=== PATIENT | female | born 1935 | race Caucasian/White ===

== ENCOUNTER 2016-10-08 08:35 | Emergency (ER) | payer MEDICARE ==
[~2016-10-08 08:35] MED LIST: /AMLO25TA PO; /CELE20CA PO; /CIPR75TA OR; ACET50TA PO; ALDA25TA2 PO; AMBI10TA PO; AMLO5TAB2 PO; ASPI81CH PO; ASPI81TA7 PO; CRES5TAB PO; DEXI60CA PO; DIPH50CA PO; DO NOT TAKE; FERR325T3 PO; GLIM1TAB PO; GLIM2TAB PO; GLIM4TAB PO; HYDR12.55 PO; HYDR25TA6 PO; IMOD2TAB14 PO; LASI80TA PO; LEVA500T PO; LEVO100T PO; LEVO112T25 PO; LISI10TA4 PO; LISI40TA PO; LOPE2CA PO; LOPR100T PO; MAGN1TAB25 PO; METO-209 PO; METO100T PO; METROPROLOL PO; MUCI600T34 PO; MULTCAP PO; OMEP20TA7 PO; OXYCO5TA PO; Plavix PO; SIME40TA PO; VITA500C24 PO; XANA0.25 PO; ZEST5TAB PO; ZINC220C PO
[2016-10-08] MEDS ORDERED: TETRACAINE 0.5% OPHTH SOLN 2 ML As Ordered ONE (09:12)
[2016-10-08] MEDS ORDERED: FLUORESCEIN OPHTH 1 MG STRIP As Ordered ONE (09:12)
[2016-10-08] MEDS ORDERED: NORCO, ANEXSIA 5/325MG TABLET (HYDROcodone/ACETAMINOPHEN) As Ordered ONE (09:12)
--- NOTE | 2016-10-08 09:54 | EDDOCDS ---
Physician Documentation [facility] Name: Valeria Weir Age: 81 yrs Sex: Female : 1935 Arrival Date: 10/08/2016 Time: 08:35 Bed I10 / 23 Private MD: Frank Lorenz A. Disposition: 10/08/16 09:37 Discharged to Home/Self Care. Impression: Zoster [herpes zoster]. - Condition is Stable. - Discharge Instructions: Shingles. - Prescriptions for Hydrocodone- Acetaminophen 5-325 mg Oral Tablet - take 1 tablet by ORAL route every 6 hours As needed MDD: 4 tabs; 20 tablet. Acyclovir 800 mg Oral Tablet - take 1 tablet by ORAL route 5 times per day for 10 days; 50 tablet. - Medication Reconciliation, Local Pharmacy Hours form. - Follow up: Emergency Department; When: As needed; Reason: Worsening of conditions. Follow up: Frank Lorenz; When: 2 - 3 days; Reason: Wound/Symptom Recheck, Recheck today's complaints, Worsening of conditions, Continuance of care. - Problem is new. - Symptoms have improved. Historical: - Allergies: Ciprofloxacin; cefadroxil; SUCCINYLCHOLINE; - Home Meds: 1. atorvastatin 10 mg oral tab 1 tab once daily 2. magnesium oxide 400 mg Oral tab daily 3. levothyroxine 112 mcg Oral tab 1 tab once daily 4. metoprolol succinate oral 5. metoprolol tartrate 50 mg Oral tab 1 tab 2 times per day 6. lisinopril 10 mg Oral tab 1 tab once daily 7. aspirin 325 mg Oral tab 1 tab once daily 8. escitalopram oxalate 5 mg oral tab 1 tab once daily 9. omeprazole 20 mg Oral cpDR 1 cap once daily 10. glimepiride 2 mg Oral tab 1 tab three times a day 11. sodium bicarbonate 325 mg Oral tab daily - PMHx: Hypertension; Diabetes - NIDDM: controlled; Hypothyroidism; High Cholesterol; Cancer, Breast - Left; GERD; - PSHx: Cholecystectomy; Hysterectomy; Nephrectomy- Right; Hernia repair; Cataract Surgery- Bilateral; CABG; - Social history: Smoking status: Patient states was never smoker of tobacco. No barriers to communication noted, The patient speaks fluent [place], Speaks appropriately for age. - Family history: Not pertinent. - : The pt / caregiver states he / she is not on anticoagulants. Home medication list is obtained from the patient. - Exposure Risk Screening:: None identified. Vital Signs: 10/08 08:48 BP 170 / 73; Pulse 70; Resp 16; Temp 97.9(TE); Pulse Ox 96% on R/A; Weight 88.9 kg / mlb1 195.99 lbs (R); Height 5 ft. 1 in. (154.94 cm) (R); Pain 07/17; 08:48 Body Mass Index 37.03 (88.90 kg, 154.94 cm) mlb1 MDM: 09:07 HYDROcodone-acetaminophen 5 mg-325 mg 1 tabs PO once ordered. cc10 09:07 Tetracaine (PF) Drops 0.5 % 2 drps Ophthalmic once ordered. cc10 09:07 Flouroscein strips to bedside ordered. cc10 09:07 Misc. Nursing Order ordered. cc10 Administered Medications: 09:16 Drug: HYDROcodone-acetaminophen 1 tabs [hydrocodone 5 mg-acetaminophen 325 mg tablet (1 jc4 tabs)] Route: PO; 09:16 Follow up: Response: Confirmed pt not driving. jc4 09:51 Follow up: Response: Pain is decreased jc4 09:16 Drug: Tetracaine (PF) 2 drps [tetracaine HCl (PF) 0.5 % eye drops (2 drps)] Route: jc4 Ophthalmic; Site: right eye; Signatures: Adin Kwok RN RN mlb1 Shahla Rausch RN RN jc4 Fidel Fortune PA-C PA-C cc10 MTDD
--- NOTE | 2016-10-08 09:54 | EDDOCDS ---
Nurse's Notes [facility] Name: Valeria Weir Age: 81 yrs Sex: Female : 1935 Arrival Date: 10/08/2016 Time: 08:35 Bed I10 / 23 Private MD: Frank Lorenz A. Diagnosis: Zoster [herpes zoster] Presentation: 10/08 08:40 Presenting complaint: Patient states: Painful rash to scalp and right side of face mlb1 began two days ago. Onset: The symptoms/episode began/occurred 2 day(s) ago. This patient has not experienced a previous allergic reaction. Anaphylaxis evaluation, the patient reports or I have noted the following symptoms which indicate a significant risk of anaphylaxis: no signs or symptoms of anaphylaxis were noted. Adult Sepsis Screening: The patient does not have new or worsening altered mentation. Patient's respiratory rate is less than 22. Systolic blood pressure is greater than 100. Patient has a qSOFA score of 0- Negative Sepsis Screen. Suicide/Homicide risk assessment- the patient denies having any suicidal and/or homicidal ideations and does not present with any other emotional, behavioral or mental health complaints. 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 Transition of care: patient was not received from another setting of care. 08:40 Acuity: TERRA Level 4 mlb1 08:40 Method Of Arrival: Walkin/Carried/Asstd mlb1 Triage Assessment: 08:48 General: Appears in no apparent distress, Behavior is appropriate for age, cooperative. mlb1 Pain: Location: head, right sternocleidomastoid and scalp Pain currently is 10 out of 10 on a pain scale. Respiratory: Reports no respiratory complaints. Historical: - Allergies: Ciprofloxacin; cefadroxil; SUCCINYLCHOLINE; - Home Meds: 1. atorvastatin 10 mg oral tab 1 tab once daily 2. magnesium oxide 400 mg Oral tab daily 3. levothyroxine 112 mcg Oral tab 1 tab once daily 4. metoprolol succinate oral 5. metoprolol tartrate 50 mg Oral tab 1 tab 2 times per day 6. lisinopril 10 mg Oral tab 1 tab once daily 7. aspirin 325 mg Oral tab 1 tab once daily 8. escitalopram oxalate 5 mg oral tab 1 tab once daily 9. omeprazole 20 mg Oral cpDR 1 cap once daily 10. glimepiride 2 mg Oral tab 1 tab three times a day 11. sodium bicarbonate 325 mg Oral tab daily - PMHx: Hypertension; Diabetes - NIDDM: controlled; Hypothyroidism; High Cholesterol; Cancer, Breast - Left; GERD; - PSHx: Cholecystectomy; Hysterectomy; Nephrectomy- Right; Hernia repair; Cataract Surgery- Bilateral; CABG; - Social history: Smoking status: Patient states was never smoker of tobacco. No barriers to communication noted, The patient speaks fluent Sinhala, Speaks appropriately for age. - Family history: Not pertinent. - : The pt / caregiver states he / she is not on anticoagulants. Home medication list is obtained from the patient. - Exposure Risk Screening:: None identified. Screenin:51 Screening information is obtained from the patient. Fall risk: No risks identified. jc4 Assistance ADL's: requires no assistance with activities of daily living. Abuse/DV Screen: The patient / caregiver reports he/she is: not in a situation that causes fear, pain or injury. Nutritional screening: No deficits noted. Advance Directives: Further advance directive information is declined. home support is adequate. Assessment: 09:49 General: Appears in no apparent distress, Behavior is cooperative, pleasant. jc4 Neurological: Level of Consciousness is awake, alert, Oriented to person, place, time. Respiratory: Airway is patent Respiratory effort is even, unlabored, Respiratory pattern is regular, symmetrical. Respiratory: Breath sounds are clear bilaterally. Derm: Skin is pink, warm & dry. Rash noted that is red noted to right side of neck and face. Vital Signs: 08:48 BP 170 / 73; Pulse 70; Resp 16; Temp 97.9(TE); Pulse Ox 96% on R/A; Weight 88.9 kg (R); mlb1 Height 5 ft. 1 in. (154.94 cm) (R); Pain 10/10; 08:48 Body Mass Index 37.03 (88.90 kg, 154.94 cm) b1 Vitals: 08:48 Log In Time: October 08, 2016 at 08:35. b1 ED Course: 08:37 Patient visited by Sukh Avila. mm15 08:37 Frank Lorenz is Private Physician. mm15 08:37 Patient moved to Waiting mm15 08:40 Patient visited by Adin Kwok RN. mlb1 08:41 Triage Initiated b1 08:50 Patient visited by Adin Kwok, PATRICK. mlb1 08:50 Shahla Rausch, PATRICK is Primary Nurse. mlb1 08:50 Patient moved to I3 / M3 mlb1 08:58 Fidel Fortune PA-C is [facility]. cc10 08:58 Grace Chaidez MD is Attending Physician. cc10 08:59 Patient visited by Fidel Fortune PA-C. cc10 08:59 Patient visited by Fidel Fortune PA-C. cc10 09:10 Patient moved to I10 / 23 hs1 09:37 Frank Lorenz is Referral Physician. cc10 09:51 No IV's were initiated during this patient's visit. No procedures done that require 4 assistance. 09:53 The patient / caregiver is instructed regarding the plan of care and ED course. jc4 Administered Medications: 09:16 Drug: HYDROcodone-acetaminophen 1 tabs [hydrocodone 5 mg-acetaminophen 325 mg tablet (1 jc4 tabs)] Route: PO; 09:16 Follow up: Response: Confirmed pt not driving. jc4 09:51 Follow up: Response: Pain is decreased jc4 09:16 Drug: Tetracaine (PF) 2 drps [tetracaine HCl (PF) 0.5 % eye drops (2 drps)] Route: jc4 Ophthalmic; Site: right eye; Order Results: There are currently no results for this order. Outcome: 09:37 Discharge ordered by Provider. cc10 09:52 Discharge Assessment: Patient awake, alert and oriented x 3. No cognitive and/or jc4 functional deficits noted. Patient verbalized understanding of disposition instructions. patient administered narcotics - yes. Pt provided with safe discharge. The following High Risk Discharge criteria are identified: None. Discharged to home ambulatory. Condition: stable. Discharge instructions given to patient, Instructed on discharge instructions, follow up and referral plans. medication usage, Demonstrated understanding of instructions, medications, Pt was receptive of discharge instructions/ teaching. No special radiology studies were completed. Property :Personal belongings accompany Pt. 09:53 Patient left the ED. jc4 Signatures: Adin Kwok, RN RN mlb1 Karen Haley RN RN hs1 Shahla Rausch, PATRICK NGUYEN jc4 Sukh Avila mm15 [place], Fidel, PA-C PA-C cc10 MTDD
--- NOTE | 2016-10-10 10:54 | EDDOCDS ---
Physician Documentation [facility] Name: Valeria Weir Age: 81 yrs Sex: Female : 1935 Arrival Date: 10/08/2016 Time: 08:35 Bed I10 / 23 Private MD: Frank Lorenz A. Disposition: 10/08/16 09:37 Discharged to Home/Self Care. Impression: Zoster [herpes zoster]. - Condition is Stable. - Discharge Instructions: Shingles. - Prescriptions for Hydrocodone- Acetaminophen 5-325 mg Oral Tablet - take 1 tablet by ORAL route every 6 hours As needed MDD: 4 tabs; 20 tablet. Acyclovir 800 mg Oral Tablet - take 1 tablet by ORAL route 5 times per day for 10 days; 50 tablet. - Medication Reconciliation, Local Pharmacy Hours form. - Follow up: Emergency Department; When: As needed; Reason: Worsening of conditions. Follow up: Frank Lorenz; When: 2 - 3 days; Reason: Wound/Symptom Recheck, Recheck today's complaints, Worsening of conditions, Continuance of care. - Problem is new. - Symptoms have improved. Historical: - Allergies: Ciprofloxacin; cefadroxil; SUCCINYLCHOLINE; - Home Meds: 1. atorvastatin 10 mg oral tab 1 tab once daily 2. magnesium oxide 400 mg Oral tab daily 3. levothyroxine 112 mcg Oral tab 1 tab once daily 4. metoprolol succinate oral 5. metoprolol tartrate 50 mg Oral tab 1 tab 2 times per day 6. lisinopril 10 mg Oral tab 1 tab once daily 7. aspirin 325 mg Oral tab 1 tab once daily 8. escitalopram oxalate 5 mg oral tab 1 tab once daily 9. omeprazole 20 mg Oral cpDR 1 cap once daily 10. glimepiride 2 mg Oral tab 1 tab three times a day 11. sodium bicarbonate 325 mg Oral tab daily - PMHx: Hypertension; Diabetes - NIDDM: controlled; Hypothyroidism; High Cholesterol; Cancer, Breast - Left; GERD; - PSHx: Cholecystectomy; Hysterectomy; Nephrectomy- Right; Hernia repair; Cataract Surgery- Bilateral; CABG; - Social history: Smoking status: Patient states was never smoker of tobacco. No barriers to communication noted, The patient speaks fluent Liberian, Speaks appropriately for age. - Family history: Not pertinent. - : The pt / caregiver states he / she is not on anticoagulants. Home medication list is obtained from the patient. - Exposure Risk Screening:: None identified. Vital Signs: 10/08 08:48 BP 170 / 73; Pulse 70; Resp 16; Temp 97.9(TE); Pulse Ox 96% on R/A; Weight 88.9 kg / mlb1 195.99 lbs (R); Height 5 ft. 1 in. (154.94 cm) (R); Pain 1010; 08:48 Body Mass Index 37.03 (88.90 kg, 154.94 cm) mlb1 MDM: 09:07 HYDROcodone-acetaminophen 5 mg-325 mg 1 tabs PO once ordered. cc10 09:07 Tetracaine (PF) Drops 0.5 % 2 drps Ophthalmic once ordered. cc10 09:07 Flouroscein strips to bedside ordered. cc10 09:07 Misc. Nursing Order ordered. cc10 09:56 [facility] Payment Agreement was scanned into [employer] and attached to record. 5 :56 Financial registration complete. jp5 11:31 T-Sheet-- Draft Copy was scanned into [employer] and attached to record. seh Administered Medications: 09:16 Drug: HYDROcodone-acetaminophen 1 tabs [hydrocodone 5 mg-acetaminophen 325 mg tablet (1 jc4 tabs)] Route: PO; 09:16 Follow up: Response: Confirmed pt not driving. jc4 09:51 Follow up: Response: Pain is decreased jc4 09:16 Drug: Tetracaine (PF) 2 drps [tetracaine HCl (PF) 0.5 % eye drops (2 drps)] Route: jc4 Ophthalmic; Site: right eye; Signatures: Adin Kwok RN RN mlb1 Shahla Rausch RN RN jc4 Fidel Fortune PA-C PA-C cc10 Savannah Booth 5 Grace Connell se The chart was reviewed and I authenticate all verbal orders and agree with the evaluation and treatment provided.Attachments: :56 [facility] Payment Agreement 5 11:31 T-Sheet-- Draft Copy [facility] Chart Complete MTDD
--- NOTE | 2016-10-10 10:54 | EDDOCDS ---
Nurse's Notes [facility] Name: Valeria Weir Age: 81 yrs Sex: Female : 1935 Arrival Date: 10/08/2016 Time: 08:35 Bed I10 / 23 Private MD: Frank Lorenz A. Diagnosis: Zoster [herpes zoster] Presentation: 10/08 08:40 Presenting complaint: Patient states: Painful rash to scalp and right side of face mlb1 began two days ago. Onset: The symptoms/episode began/occurred 2 day(s) ago. This patient has not experienced a previous allergic reaction. Anaphylaxis evaluation, the patient reports or I have noted the following symptoms which indicate a significant risk of anaphylaxis: no signs or symptoms of anaphylaxis were noted. Adult Sepsis Screening: The patient does not have new or worsening altered mentation. Patient's respiratory rate is less than 22. Systolic blood pressure is greater than 100. Patient has a qSOFA score of 0- Negative Sepsis Screen. Suicide/Homicide risk assessment- the patient denies having any suicidal and/or homicidal ideations and does not present with any other emotional, behavioral or mental health complaints. Status: Patient is not a food service attendant or dependent. Transition of care: patient was not received from another setting of care. 08:40 Acuity: TERRA Level 4 mlb1 08:40 Method Of Arrival: Walkin/Carried/Asstd mlb1 Triage Assessment: 08:48 General: Appears in no apparent distress, Behavior is appropriate for age, cooperative. mlb1 Pain: Location: head, right sternocleidomastoid and scalp Pain currently is 10 out of 10 on a pain scale. Respiratory: Reports no respiratory complaints. Historical: - Allergies: Ciprofloxacin; cefadroxil; SUCCINYLCHOLINE; - Home Meds: 1. atorvastatin 10 mg oral tab 1 tab once daily 2. magnesium oxide 400 mg Oral tab daily 3. levothyroxine 112 mcg Oral tab 1 tab once daily 4. metoprolol succinate oral 5. metoprolol tartrate 50 mg Oral tab 1 tab 2 times per day 6. lisinopril 10 mg Oral tab 1 tab once daily 7. aspirin 325 mg Oral tab 1 tab once daily 8. escitalopram oxalate 5 mg oral tab 1 tab once daily 9. omeprazole 20 mg Oral cpDR 1 cap once daily 10. glimepiride 2 mg Oral tab 1 tab three times a day 11. sodium bicarbonate 325 mg Oral tab daily - PMHx: Hypertension; Diabetes - NIDDM: controlled; Hypothyroidism; High Cholesterol; Cancer, Breast - Left; GERD; - PSHx: Cholecystectomy; Hysterectomy; Nephrectomy- Right; Hernia repair; Cataract Surgery- Bilateral; CABG; - Social history: Smoking status: Patient states was never smoker of tobacco. No barriers to communication noted, The patient speaks fluent Macedonian, Speaks appropriately for age. - Family history: Not pertinent. - : The pt / caregiver states he / she is not on anticoagulants. Home medication list is obtained from the patient. - Exposure Risk Screening:: None identified. Screenin:51 Screening information is obtained from the patient. Fall risk: No risks identified. jc4 Assistance ADL's: requires no assistance with activities of daily living. Abuse/DV Screen: The patient / caregiver reports he/she is: not in a situation that causes fear, pain or injury. Nutritional screening: No deficits noted. Advance Directives: Further advance directive information is declined. home support is adequate. Assessment: 09:49 General: Appears in no apparent distress, Behavior is cooperative, pleasant. jc4 Neurological: Level of Consciousness is awake, alert, Oriented to person, place, time. Respiratory: Airway is patent Respiratory effort is even, unlabored, Respiratory pattern is regular, symmetrical. Respiratory: Breath sounds are clear bilaterally. Derm: Skin is pink, warm & dry. Rash noted that is red noted to right side of neck and face. Vital Signs: 08:48 BP 170 / 73; Pulse 70; Resp 16; Temp 97.9(TE); Pulse Ox 96% on R/A; Weight 88.9 kg (R); mlb1 Height 5 ft. 1 in. (154.94 cm) (R); Pain 10/10; 08:48 Body Mass Index 37.03 (88.90 kg, 154.94 cm) b1 Vitals: 08:48 Log In Time: October 08, 2016 at 08:35. b1 ED Course: 08:37 Patient visited by Sukh Avila. mm15 08:37 Frank Lorenz is Private Physician. mm15 08:37 Patient moved to Waiting mm15 08:40 Patient visited by Adin Kwok RN. mlb1 08:41 Triage Initiated b1 08:50 Patient visited by Adin Kwok RN. mlb1 08:50 Shahla Rausch RN is Primary Nurse. mlb1 08:50 Patient moved to I3 / M3 mlb1 08:58 Fidel Fortune PA-C is PHCP. cc10 08:58 Grace Chaidez MD is Attending Physician. cc10 08:59 Patient visited by Fidel Fortune PA-C. cc10 08:59 Patient visited by Fidel Fortune PA-C. cc10 09:10 Patient moved to I10 / 23 hs1 09:37 Frank Lorenz is Referral Physician. cc10 09:51 No IV's were initiated during this patient's visit. No procedures done that require [facility] assistance. 09:53 The patient / caregiver is instructed regarding the plan of care and ED course. jc4 09:56 [facility] Payment Agreement was scanned into [employer] and attached to record. jp5 11:31 T-Sheet-- Draft Copy was scanned into [employer] and attached to record. seh Administered Medications: 09:16 Drug: HYDROcodone-acetaminophen 1 tabs [hydrocodone 5 mg-acetaminophen 325 mg tablet (1 jc4 tabs)] Route: PO; 09:16 Follow up: Response: Confirmed pt not driving. jc4 09:51 Follow up: Response: Pain is decreased jc4 09:16 Drug: Tetracaine (PF) 2 drps [tetracaine HCl (PF) 0.5 % eye drops (2 drps)] Route: jc4 Ophthalmic; Site: right eye; Order Results: There are currently no results for this order. Outcome: 09:37 Discharge ordered by Provider. cc10 09:52 Discharge Assessment: Patient awake, alert and oriented x 3. No cognitive and/or jc4 functional deficits noted. Patient verbalized understanding of disposition instructions. patient administered narcotics - yes. Pt provided with safe discharge. The following High Risk Discharge criteria are identified: None. Discharged to home ambulatory. Condition: stable. Discharge instructions given to patient, Instructed on discharge instructions, follow up and referral plans. medication usage, Demonstrated understanding of instructions, medications, Pt was receptive of discharge instructions/ teaching. No special radiology studies were completed. Property :Personal belongings accompany Pt. 09:53 Patient left the ED. jc4 Signatures: Adin Kwok RN RN mlb1 Karen Haley, RN RN hs1 Shahla Rausch, RN RN jc4 Sukh Avila mm15 Fidel Fortune PA-C PA-C cc10 Savannah Booth jp5 Grace Connell Chart Complete MTDD
--- NOTE | 2016-10-10 10:54 | EDDOCDS ---
Physician Documentation [facility] Name: Valeria Weir Age: 81 yrs Sex: Female : 1935 Arrival Date: 10/08/2016 Time: 08:35 Bed I10 / 23 Private MD: Frank Lorenz A. Disposition: 10/08/16 09:37 Discharged to Home/Self Care. Impression: Zoster [herpes zoster]. - Condition is Stable. - Discharge Instructions: Shingles. - Prescriptions for Hydrocodone- Acetaminophen 5-325 mg Oral Tablet - take 1 tablet by ORAL route every 6 hours As needed MDD: 4 tabs; 20 tablet. Acyclovir 800 mg Oral Tablet - take 1 tablet by ORAL route 5 times per day for 10 days; 50 tablet. - Medication Reconciliation, Local Pharmacy Hours form. - Follow up: Emergency Department; When: As needed; Reason: Worsening of conditions. Follow up: Frank Lorenz; When: 2 - 3 days; Reason: Wound/Symptom Recheck, Recheck today's complaints, Worsening of conditions, Continuance of care. - Problem is new. - Symptoms have improved. Historical: - Allergies: Ciprofloxacin; cefadroxil; SUCCINYLCHOLINE; - Home Meds: 1. atorvastatin 10 mg oral tab 1 tab once daily 2. magnesium oxide 400 mg Oral tab daily 3. levothyroxine 112 mcg Oral tab 1 tab once daily 4. metoprolol succinate oral 5. metoprolol tartrate 50 mg Oral tab 1 tab 2 times per day 6. lisinopril 10 mg Oral tab 1 tab once daily 7. aspirin 325 mg Oral tab 1 tab once daily 8. escitalopram oxalate 5 mg oral tab 1 tab once daily 9. omeprazole 20 mg Oral cpDR 1 cap once daily 10. glimepiride 2 mg Oral tab 1 tab three times a day 11. sodium bicarbonate 325 mg Oral tab daily - PMHx: Hypertension; Diabetes - NIDDM: controlled; Hypothyroidism; High Cholesterol; Cancer, Breast - Left; GERD; - PSHx: Cholecystectomy; Hysterectomy; Nephrectomy- Right; Hernia repair; Cataract Surgery- Bilateral; CABG; - Social history: Smoking status: Patient states was never smoker of tobacco. No barriers to communication noted, The patient speaks fluent Serbian, Speaks appropriately for age. - Family history: Not pertinent. - : The pt / caregiver states he / she is not on anticoagulants. Home medication list is obtained from the patient. - Exposure Risk Screening:: None identified. Vital Signs: 10/08 08:48 BP 170 / 73; Pulse 70; Resp 16; Temp 97.9(TE); Pulse Ox 96% on R/A; Weight 88.9 kg / mlb1 195.99 lbs (R); Height 5 ft. 1 in. (154.94 cm) (R); Pain 1010; 08:48 Body Mass Index 37.03 (88.90 kg, 154.94 cm) mlb1 MDM: 09:07 HYDROcodone-acetaminophen 5 mg-325 mg 1 tabs PO once ordered. cc10 09:07 Tetracaine (PF) Drops 0.5 % 2 drps Ophthalmic once ordered. cc10 09:07 Flouroscein strips to bedside ordered. cc10 09:07 Misc. Nursing Order ordered. cc10 09:56 REPLACED BY [facility] Payment Agreement was scanned into [employer] and attached to record. 5 :56 Financial registration complete. jp5 11:31 T-Sheet-- Draft Copy was scanned into [employer] and attached to record. seh Administered Medications: 09:16 Drug: HYDROcodone-acetaminophen 1 tabs [hydrocodone 5 mg-acetaminophen 325 mg tablet (1 jc4 tabs)] Route: PO; 09:16 Follow up: Response: Confirmed pt not driving. jc4 09:51 Follow up: Response: Pain is decreased jc4 09:16 Drug: Tetracaine (PF) 2 drps [tetracaine HCl (PF) 0.5 % eye drops (2 drps)] Route: jc4 Ophthalmic; Site: right eye; Signatures: Adin Kwok RN RN mlb1 Shahla Rausch RN RN jc4 Fidel Fortune PA-C PA-C cc10 Savannah Booth 5 Grace Connell se The chart was reviewed and I authenticate all verbal orders and agree with the evaluation and treatment provided.Attachments: :56 REPLACED BY [facility] Payment Agreement 5 11:31 T-Sheet-- Draft Copy [facility] Chart Complete MTDD
[2016-10-13] MEDS ORDERED: MULT1TAB18 PO (14:00)
[2016-10-13] MEDS ORDERED: LISI10TA4 PO (14:00)
[2016-10-13] MEDS ORDERED: PRIL20CA PO (14:00)
[2016-10-13] MEDS ORDERED: ATOR1TAB19 PO (14:00)
[2016-10-13] MEDS ORDERED: SODI325T9 PO (14:00)
[2016-10-13] MEDS ORDERED: LEXA5TAB13 PO (14:00)
== END 2016-10-08 09:53 | disposition home or self-care (01) ==
LOC: M ED 08:35
DX: B02.9 Zoster without complications (principal); I10 Essential (primary) hypertension; E11.9 Type 2 diabetes mellitus without complications; E03.9 Hypothyroidism, unspecified; E78.00 Pure hypercholesterolemia, unspecified; K21.9 Gastro-esophageal reflux disease without esophagitis; Z85.3 Personal history of malignant neoplasm of breast; Z90.5 Acquired absence of kidney; Z95.1 Presence of aortocoronary bypass graft; Z79.82 Long term (current) use of aspirin; Z79.899 Other long term (current) drug therapy; Z88.1 Allergy status to other antibiotic agents; Z88.8 Allergy status to other drugs, medicaments and biological substances

== ENCOUNTER 2016-10-09 17:56 | Emergency (ER) | payer MEDICARE ==
[2016-10-09 19:26] LABS: BASO # 0.1 K/mm3 (0.0-0.2); BASO % 1.4 % (0.0-1.0); EOS # 0.1 K/mm3 (0.0-0.50); EOS % 1.7 % (0.0-3.0); LARGE UNSTAINED CELL # 0.4 K/mm3 (0.0-0.4); LARGE UNSTAINED CELL % 5.3 % (0.0-4.0); LYMPH # 1.5 K/mm3 (1.5-4.5); LYMPH % 17.7 % (24.0-44.0); MEAN CORPUSCULAR HEMOGLOBIN 29.7 pg (27.0-33.0); MEAN CORPUSCULAR HGB CONC 33.3 g/dl (32.0-36.5); MEAN CORPUSCULAR VOLUME 89.1 fl (80.0-96.0); MONO # 0.4 K/mm3 (0.0-0.8); MONO % 5.5 % (0.0-5.0); NEUTROPHILS # 4.6 K/mm3 (1.8-7.7); NEUTROPHILS % 68.4 % (36.0-66.0); PLATELET COUNT, AUTOMATED 190 k/mm3 (150-450); RED CELL DISTRIBUTION WIDTH 15.2 % (11.5-14.5); WHITE BLOOD COUNT 6.7 K/mm3 (4.0-10.0)
[2016-10-09 19:39] LABS: ANION GAP 13 MEQ/L (8-16); BLOOD UREA NITROGEN 11 MG/DL (7-18); CALCIUM LEVEL 8.5 MG/DL (8.8-10.2); CARBON DIOXIDE LEVEL 25 MEQ/L (21-32); CHLORIDE LEVEL 94 MEQ/L (98-107); CREATININE FOR GFR 0.92 MG/DL (0.55-1.02); GLOMERULAR FILTRATION RATE > 60.0 (>32); GLUCOSE, FASTING 155 MG/DL (83-110); POTASSIUM SERUM 3.2 MEQ/L (3.5-5.1); SODIUM LEVEL 132 MEQ/L (136-145)
--- NOTE | 2016-10-09 19:57 | REP ---
Clinical: Chest pain. Technique: 09/19/2016. Findings: Evaluation is limited by portable technique. Mediastinum and cardiac silhouette are stable. Lung santamaria demonstrate chronic-appearing pleural parenchymal changes and superimposed basilar atelectasis cannot be excluded. Effusion cannot be excluded. No pneumothorax. Impression: Cannot exclude superimposed bibasilar atelectasis and possible pleural effusion. Signed by Fernando Menjivar MD 10/09/2016 07:47 P
[2016-10-09] MEDS ORDERED: ONDANSETRON 4MG/2ML VIAL (J2405) As Ordered ONE (20:39)
[2016-10-09] MEDS ORDERED: MORPHINE 4 MG/ML 1ML SYRINGE As Ordered ONE (20:40)
--- NOTE | 2016-10-09 23:10 | EDDOCDS ---
Nurse's Notes [facility] Name: Valeria Weir Age: 81 yrs Sex: Female : 1935 Arrival Date: 10/09/2016 Time: 17:56 Bed 12 Private MD: Frank Lorenz A. Diagnosis: Zoster [herpes zoster];Atypical facial pain Presentation: 10/09 18:05 Presenting complaint: Patient states: that she started feeling nauseous approx 2 hrs ms18 ago. Pt states that she was seen here yesterday and diagnosed with shingles. Pt states that she may have taken too much of the medication that was prescribed to her, Pt also c/o headache at this time. Adult Sepsis Screening: The patient does not have new or worsening altered mentation. Patient's respiratory rate is less than 22. Systolic blood pressure is greater than 100. Patient has a qSOFA score of 0- Negative Sepsis Screen. Suicide/Homicide risk assessment- the patient denies having any suicidal and/or homicidal ideations and does not present with any other emotional, behavioral or mental health complaints. Status: Patient is not a program services assistant or dependent. Transition of care: patient was not received from another setting of care. Red Flag criteria, patient assessed and taken directly to a bed. 18:05 Acuity: TERRA Level 3 ms18 18:05 Method Of Arrival: Walkin/Carried/Asstd ms18 Triage Assessment: 18:11 General: Appears in no apparent distress, obese, Behavior is appropriate for age, ms18 cooperative. Pain: Location: head, neck, face Pain currently is 5 out of 10 on a pain scale. The patient is triaged at the bedside. See Assessment in Nurses Notes section of ED record. Neurological: Level of Consciousness is awake, alert, obeys commands, Oriented to person, place, time. Respiratory: Airway is patent Respiratory effort is even, unlabored. GI: Abdomen is obese, Reports nausea, vomiting. Derm: Skin is pink, warm & dry. Historical: - Allergies: cefadroxil; Ciprofloxacin; SUCCINYLCHOLINE; - Home Meds: 1. aspirin 325 mg Oral tab 1 tab once daily 2. atorvastatin 10 mg oral tab 1 tab once daily 3. escitalopram oxalate 5 mg oral tab 1 tab once daily 4. glimepiride 2 mg Oral tab 1 tab three times a day 5. levothyroxine 112 mcg Oral tab 1 tab once daily 6. lisinopril 10 mg Oral tab 1 tab once daily 7. magnesium oxide 400 mg Oral tab daily 8. metoprolol succinate oral 9. metoprolol tartrate 50 mg Oral tab 1 tab 2 times per day 10. omeprazole 20 mg Oral cpDR 1 cap once daily 11. sodium bicarbonate 325 mg Oral tab daily 12. acyclovir 800 mg Oral tab 1 tab 5 times per day just started yesterday 10/08/16 13. [place] 5-325 mg Oral tab 1 tab every 4-6 hours - PMHx: Cancer, Breast - Left; Diabetes - NIDDM: controlled; GERD; High Cholesterol; Hypertension; Hypothyroidism; Shingles; Kidney stones; Renal Failure w/o Dialysis; - PSHx: CABG; R kidney removed; Cholecystectomy; Hernia repair; Hysterectomy; - Social history: Smoking status: Patient states was never smoker of tobacco. No barriers to communication noted, The patient speaks fluent Bhutanese. - Family history: Not pertinent. - : The pt / caregiver states he / she is not on anticoagulants. Home medication list is obtained from the patient. - Exposure Risk Screening:: None identified. Screenin:15 Screening information is obtained from the patient. Fall risk: At risk due to age. js13 Assistance ADL's: requires no assistance with activities of daily living. Abuse/DV Screen: The patient / caregiver reports he/she is: not in a situation that causes fear, pain or injury. Nutritional screening: No deficits noted. Advance Directives: There is no active DNR order. home support is adequate. Assessment: 18:56 General: Appears in no apparent distress, Behavior is cooperative. Pain: Location: head jf3 and face. Neurological: Level of Consciousness is awake, alert, Oriented to person, place, time, Dermatology Physician Assistant are equal bilaterally Moves all extremities. 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 Cardiovascular: Capillary refill < 3 seconds. Respiratory: Airway is patent Respiratory effort is even, unlabored, Respiratory pattern is regular, symmetrical. Derm: rash adn blistering noted to head, neck, and face. Pt with dx of shingles. 22:13 Reassessment: Patient states feeling better. Patient states symptoms have improved. cf2 Adult Sepsis Screening: The patient does not have new or worsening altered mentation. Patient's respiratory rate is less than 22. Systolic blood pressure is greater than 100. Patient has a qSOFA score of 0- Negative Sepsis Screen. 23:07 Reassessment: Patient states feeling better. Patient states symptoms have improved. cf2 Vital Signs: 17:58 BP 225 / 108; Pulse 86; Resp 18 S; Temp 96.8(O); Pulse Ox 95% on R/A; Weight 88.9 kg dd6 (R); Height 5 ft. 1 in. (154.94 cm) (R); 18:24 BP 180 / 80 RA Supine (man/lg); Pulse 76; Resp 16; Pulse Ox 96% on R/A; js13 19:28 BP 150 / 76 RA Supine (man/); Pulse 79; jf3 19:28 BP 148 / 72 RA Sitting (man/); Pulse 89; jf3 19:28 BP 150 / 70 RA Standing (man/); Pulse 89; jf3 22:45 Pulse 79; Resp 18; Temp 97.3(T); Pulse Ox 98% on R/A; Pain 2/10; chalo 17:58 Body Mass Index 37.03 (88.90 kg, 154.94 cm) dd6 Vitals: 17:58 Log In Time: October 09, 2016 at 17:56. dd6 17:59 RN notified that patient meets Red Flag criteria. dd6 ED Course: 17:57 Patient visited by Jsoe Perez PCA. dd6 17:57 Frank Lorenz is Private Physician. dd6 17:57 Patient moved to Waiting dd6 18:01 Shahla Lopez,RN is Primary Nurse. ms18 18:01 Patient moved to 13 ms18 18:05 Patient visited by Nery Trevino RN. ms18 18:07 Triage Initiated ms18 18:15 The patient / caregiver is instructed regarding the plan of care and ED course. js13 18:16 Patient visited by Shahla Lopez,PATRICK. js13 18:52 Pt greeted and oriented to ED. Patient advised of names of staff involved in care, chalo location of call hendricks, wait times and NPO status. Accompanied by Family Member, Patient has correct armband on for positive identification. Placed in gown. Bed in low position. Call light in reach. Side rails up X2. manager field investigations on. Pulse ox on. NIBP on. 18:52 EKG done. (by ED staff). Reviewed by Alka Santiago MD. chalo 18:57 Patient visited by Darell Reza RN. jf3 19:04 Primary Nurse role handed off by Shahla Lopez,PATRICK js13 19:14 B-Type Natiuretic Peptide Sent. jf3 19:14 Basic Metabolic Profile Sent. jf3 19:14 CBC with Diff Sent. jf3 19:14 Cardiac Injury Profile Sent. jf3 19:14 Troponin Sent. jf3 19:29 Patient visited by Darell Reza RN. jf3 19:34 Assisted to bedside commode. chalo 19:35 Patient visited by Jacquelyn Harding PCA. chalo 19:39 Patient visited by Darell Reza RN. jf3 19:39 Inserted saline lock: 20 gauge in left antecubital area The patient tolerated the jf3 procedure well. 20:02 Patient moved to 12 jf3 20:07 Carlene Nicholson RN is Primary Nurse. cf2 20:07 Patient visited by Carlene Nicholson RN. cf2 20:20 portable chest Returned. EDMS 20:22 Patient visited by Carlene Nicholson RN. cf2 20:29 Anastacio Mccullough FNP is PHCP. ke 20:29 Patient visited by Anastacio Mccullough FNP. ke 20:29 Patient visited by Anastacio Mccullough FNP. ke 20:37 Patient visited by Carlene Nicholson RN. cf2 20:38 Patient visited by Carlene Nicholson RN. cf2 21:08 Patient visited by Carlene Nicholson RN. cf2 21:42 Patient visited by Anastacio Mccullough FNP. ke 21:59 Patient visited by Jacquelyn Harding PCA. chalo 21:59 CARDIAC MARKER PANEL Sent. chalo 21:59 EKG done. (by ED staff). Reviewed by Anastacio TORRES. chalo 22:13 Patient visited by Carlene Nicholson RN. cf2 22:38 Patient visited by Anastacio Mccullough FNP. ke 22:38 Frank Lorenz is Referral Physician. ke 22:45 Patient visited by Jacquelyn Harding PCA. chalo 22:46 [facility] Payment Agreement was scanned into [employer] and attached to record. zo 23:07 Patient visited by Carlene Nicholson RN. cf2 23:07 Discontinued lock. No procedures done that require assistance. cf2 23:09 Tang Suero MD is Attending Physician. cf2 Administered Medications: 20:47 Drug: Ondansetron 8 mg [ondansetron HCl 2 mg/mL intravenous solution (3.75 mL)] Route: cf2 IVP; Site: left antecubital; 21:40 Follow up: Response: Pain is decreased cf2 20:47 Drug: morphine 4 mg [morphine 4 mg/mL intravenous cartridge (1 mL)] Route: IVP; Site: cf2 left antecubital; 21:40 Follow up: Response: Pain is decreased cf2 Order Results: Lab Order: B-Type Natiuretic Peptide; SPEC'M 10/09/16 19:12 Test: BRAIN NATRIURETIC PEPTIDE; Value: 209; Range: <100; Abnormal: Above high normal; Units: PG/ML; Status: F Lab Order: Basic Metabolic Profile; SPEC'M 10/09/16 19:12 Test: GLUCOSE, FASTING; Value: 155; Range: 83-110; Abnormal: Above high normal; Units: MG/DL; Status: F Test: BLOOD UREA NITROGEN; Value: 11; Range: 7-18; Units: MG/DL; Status: F Test: CREATININE FOR GFR; Value: 0.92; Range: 0.55-1.02; Units: MG/DL; Status: F Test: GLOMERULAR FILTRATION RATE; Value: > 60.0; Range: >32; Status: F Test: SODIUM LEVEL; Value: 132; Range: 136-145; Abnormal: Below low normal; Units: MEQ/L; Status: F Test: POTASSIUM SERUM; Value: 3.2; Range: 3.5-5.1; Abnormal: Below low normal; Units: MEQ/L; Status: F Test: CHLORIDE LEVEL; Value: 94; Range: 98-107; Abnormal: Below low normal; Units: MEQ/L; Status: F Test: CARBON DIOXIDE LEVEL; Value: 25; Range: 21-32; Units: MEQ/L; Status: F Test: ANION GAP; Value: 13; Range: 8-16; Units: MEQ/L; Status: F Test: CALCIUM LEVEL; Value: 8.5; Range: 8.8-10.2; Abnormal: Below low normal; Units: MG/DL; Status: F Test Note: ; Units are mL/min/1.73 m2 Chronic Kidney Disease Staging per NKF: Stage I & II GFR >=60 Normal to Mildly Decreased Stage III GFR 30-59 Moderately Decreased Stage IV GFR 15-29 Severely Decreased Stage V GFR <15 Very Little GFR Left ESRD GFR <15 on OCCUPATIONAL SAFETY SPECIALIST Lab Order: CBC with Diff; SPEC'M 10/09/16 19:12 Test: WHITE BLOOD COUNT; Value: 6.7; Range: 4.0-10.0; Units: K/mm3; Status: F Test: RED BLOOD COUNT; Value: 4.47; Range: 4.00-5.40; Units: M/mm3; Status: F Test: HEMOGLOBIN; Value: 13.3; Range: 12.0-16.0; Units: g/dl; Status: F Test: HEMATOCRIT; Value: 39.9; Range: 36.0-47.0; Units: %; Status: F Test: MEAN CORPUSCULAR VOLUME; Value: 89.1; Range: 80.0-96.0; Units: fl; Status: F Test: MEAN CORPUSCULAR HEMOGLOBIN; Value: 29.7; Range: 27.0-33.0; Units: pg; Status: F Test: MEAN CORPUSCULAR HGB CONC; Value: 33.3; Range: 32.0-36.5; Units: g/dl; Status: F Test: RED CELL DISTRIBUTION WIDTH; Value: 15.2; Range: 11.5-14.5; Abnormal: Above high normal; Units: %; Status: F Test: PLATELET COUNT, AUTOMATED; Value: 190; Range: 150-450; Units: k/mm3; Status: F Test: NEUTROPHILS %; Value: 68.4; Range: 36.0-66.0; Abnormal: Above high normal; Units: %; Status: F Test: LYMPH %; Value: 17.7; Range: 24.0-44.0; Abnormal: Below low normal; Units: %; Status: F Test: MONO %; Value: 5.5; Range: 0.0-5.0; Abnormal: Above high normal; Units: %; Status: F Test: EOS %; Value: 1.7; Range: 0.0-3.0; Units: %; Status: F Test: BASO %; Value: 1.4; Range: 0.0-1.0; Abnormal: Above high normal; Units: %; Status: F Test: LARGE UNSTAINED CELL %; Value: 5.3; Range: 0.0-4.0; Abnormal: Above high normal; Units: %; Status: F Test: NEUTROPHILS #; Value: 4.6; Range: 1.8-7.7; Units: K/mm3; Status: F Test: LYMPH #; Value: 1.5; Range: 1.5-4.5; Units: K/mm3; Status: F Test: MONO #; Value: 0.4; Range: 0.0-0.8; Units: K/mm3; Status: F Test: EOS #; Value: 0.1; Range: 0.0-0.50; Units: K/mm3; Status: F Test: BASO #; Value: 0.1; Range: 0.0-0.2; Units: K/mm3; Status: F Test: LARGE UNSTAINED CELL #; Value: 0.4; Range: 0.0-0.4; Units: K/mm3; Status: F Lab Order: Cardiac Injury Profile; [facility]' 10/09/16 19:12 Test: CPK CREATINE PHOSPHOKINASE; Value: 36; Range: 26-192; Units: U/L; Status: F Test: CK-MB VALUE MASS; Value: 1.8; Range: 0.0-3.6; Units: NG/ML; Status: F Test: MB/CK RELATIVE INDEX; Value: 5.00; Range: < OR =4; Abnormal: Above high normal; Status: F Test Note: ; DIAGNOSIS CRITERIA MMB ng/ml Relative Index (RI) NON-AMI < or = 5 N/A [place]AR[place]AY ZONE > 5 < or = 4 AMI > 5 > 4 Lab Order: Troponin; SPEC' 10/09/16 19:12 Test: TROPONIN I; Value: 0.06; Range: < 0.10; Units: NG/ML; Status: F Test Note: ; Troponin I Reference Interval for Siemens [place] LOCI: 99th Percentile= 0.00-0.045 ng/ml Risk Stratification: <= 0.10 ng/ml Decreased Risk for Adverse Clinical Events. 0.10-1.50 ng/ml Increased Risk for Adverse Clinical Events. Evaluation of additional criterion and/or repeat testing in 2-6 hours is suggested to rule out myocardial damage. >= 1.50 ng/ml Indicative of Myocardial Injury. Lab Order: CARDIAC MARKER PANEL; SPEC'M 10/09/16 21:58 Test: CPK CREATINE PHOSPHOKINASE; Value: 34; Range: 26-192; Units: U/L; Status: F Test: CK-MB VALUE MASS; Value: 1.0; Range: 0.0-3.6; Units: NG/ML; Status: F Test: MB/CK RELATIVE INDEX; Value: 2.94; Range: < OR =4; Status: F Test: TROPONIN I; Value: 0.06; Range: < 0.10; Units: NG/ML; Status: F Test Note: ; DIAGNOSIS CRITERIA MMB ng/ml Relative Index (RI) NON-AMI < or = 5 N/A [place]AY ZONE > 5 < or = 4 AMI > 5 > 4 Radiology Order: portable chest Test: portable chest REASON FOR EXAMINATION: Chest Pain; Clinical: Chest pain.; ; Technique: 09/19/2016.; ; Findings:; Evaluation is limited by portable technique. Mediastinum and cardiac silhouette; are stable. Lung santamaria demonstrate chronic-appearing pleural parenchymal; changes and superimposed basilar atelectasis cannot be excluded. Effusion cannot; be excluded. No pneumothorax.; ; Impression:; Cannot exclude superimposed bibasilar atelectasis and possible pleural effusion.; ; ; Signed by; Fernando Menjivar MD 10/09/2016 07:47 P; Outcome: 22:40 Discharge ordered by Provider. jose m 23:07 Discharge Assessment: Patient awake, alert and oriented x 3. No cognitive and/or cf2 functional deficits noted. Patient verbalized understanding of disposition instructions. Patient awake and alert. patient administered narcotics - yes. Pt provided with safe discharge. The following High Risk Discharge criteria are identified: None. Discharged to home ambulatory, with family. Condition: good Condition: stable Condition: improved. No special radiology studies were completed. Property :Personal belongings accompany Pt. 23:09 Patient left the ED. cf2 Signatures: Dispatcher [employer] EDMS Anastacio Mccullough, CENTRIFUGAL EXTRACTOR OPERATOR CENTRIFUGAL EXTRACTOR OPERATOR Wallace Carter Daniell, EMPLOYMENT ASSISTANT EMPLOYMENT ASSISTANT dd6 Mehdi, Jacquelyn, EMPLOYMENT ASSISTANT EMPLOYMENT ASSISTANT chalo John,ShahlaRN RN js13 Nery Trevino RN RN ms18 Darell Reza,PATRICK RN jf3 Carlene NicholsonRN RN cf2 MTDD
--- NOTE | 2016-10-09 23:10 | EDDOCDS ---
Physician Documentation [facility] Name: Valeria Weir Age: 81 yrs Sex: Female : 1935 Arrival Date: 10/09/2016 Time: 17:56 Bed 12 Private MD: Frank Lorenz A. Disposition: 10/09/16 22:40 Discharged to Home/Self Care. Impression: Zoster [herpes zoster], Atypical facial pain. - Condition is Stable. - Discharge Instructions: Shingles. - Prescriptions for Zofran 4 mg Oral Tablet - take 1 tablet by ORAL route 4 times per day As needed; 10 tablet. - Medication Reconciliation, Local Pharmacy Hours form. - Follow up: Frank Lorenz; When: 4 - 5 days; Reason: Recheck today's complaints, Continuance of care. - Problem is an acute exacerbation. - Symptoms have improved. Historical: - Allergies: cefadroxil; Ciprofloxacin; SUCCINYLCHOLINE; - Home Meds: 1. aspirin 325 mg Oral tab 1 tab once daily 2. atorvastatin 10 mg oral tab 1 tab once daily 3. escitalopram oxalate 5 mg oral tab 1 tab once daily 4. glimepiride 2 mg Oral tab 1 tab three times a day 5. levothyroxine 112 mcg Oral tab 1 tab once daily 6. lisinopril 10 mg Oral tab 1 tab once daily 7. magnesium oxide 400 mg Oral tab daily 8. metoprolol succinate oral 9. metoprolol tartrate 50 mg Oral tab 1 tab 2 times per day 10. omeprazole 20 mg Oral cpDR 1 cap once daily 11. sodium bicarbonate 325 mg Oral tab daily 12. acyclovir 800 mg Oral tab 1 tab 5 times per day just started yesterday 10/08/16 13. [place] 5-325 mg Oral tab 1 tab every 4-6 hours - PMHx: Cancer, Breast - Left; Diabetes - NIDDM: controlled; GERD; High Cholesterol; Hypertension; Hypothyroidism; Shingles; Kidney stones; Renal Failure w/o Dialysis; - PSHx: CABG; R kidney removed; Cholecystectomy; Hernia repair; Hysterectomy; - Social history: Smoking status: Patient states was never smoker of tobacco. No barriers to communication noted, The patient speaks fluent Kinyarwanda. - Family history: Not pertinent. - : The pt / caregiver states he / she is not on anticoagulants. Home medication list is obtained from the patient. - Exposure Risk Screening:: None identified. Vital Signs: 10/09 17:58 BP 225 / 108; Pulse 86; Resp 18 S; Temp 96.8(O); Pulse Ox 95% on R/A; Weight 88.9 kg / dd6 195.99 lbs (R); Height 5 ft. 1 in. (154.94 cm) (R); 18:24 BP 180 / 80 RA Supine (man/lg); Pulse 76; Resp 16; Pulse Ox 96% on R/A; js13 19:28 BP 150 / 76 RA Supine (man/); Pulse 79; jf3 19:28 BP 148 / 72 RA Sitting (man/); Pulse 89; jf3 19:28 BP 150 / 70 RA Standing (man/); Pulse 89; jf3 22:45 Pulse 79; Resp 18; Temp 97.3(T); Pulse Ox 98% on R/A; Pain 2/10; chalo 17:58 Body Mass Index 37.03 (88.90 kg, 154.94 cm) dd6 MDM: 18:43 Retail Services Professional/Pulse Ox/q 30 min VS ordered. fg 18:43 IV Saline Lock ordered. fg 18:43 Rhythm Strip to chart ordered. fg 18:43 Undress patient appropriately for examination ordered. fg 18:43 Orthostatic VS ordered. fg 18:44 B-Type Natiuretic Peptide Ordered. EDMS 18:44 Basic Metabolic Profile Ordered. EDMS 18:44 CBC with Diff Ordered. EDMS 18:44 Cardiac Injury Profile Ordered. EDMS 18:44 Troponin Ordered. EDMS 18:44 portable chest Ordered. EDMS 18:44 ECG WITH READING ER PHYS+CARDIAG ordered. EDMS 20:30 B-Type Natiuretic Peptide Reviewed. ke 20:30 Basic Metabolic Profile Reviewed. ke 20:30 CBC with Diff Reviewed. ke 20:30 Cardiac Injury Profile Reviewed. ke 20:30 Troponin Reviewed. ke 20:30 portable chest Reviewed. ke 20:38 Ondansetron 8 mg IVP once ordered. ke 20:38 morphine 4 mg IVP once ordered. ke 20:38 Redraw CIP &Troponin (put time in details section) ordered. ke 20:43 Redraw CIP &Troponin (put time in details section) complete. sew 20:44 CARDIAC MARKER PANEL Ordered. EDMS 21:17 Financial registration complete. zo 21:43 ECG WITH READING ER PHYS ordered. EDMS 22:28 CARDIAC MARKER PANEL Reviewed. jose m 22:46 [facility] Payment Agreement was scanned into [employer] and attached to record. zo Administered Medications: 20:47 Drug: Ondansetron 8 mg [ondansetron HCl 2 mg/mL intravenous solution (3.75 mL)] Route: cf2 IVP; Site: left antecubital; 21:40 Follow up: Response: Pain is decreased cf2 20:47 Drug: morphine 4 mg [morphine 4 mg/mL intravenous cartridge (1 mL)] Route: IVP; Site: cf2 left antecubital; 21:40 Follow up: Response: Pain is decreased cf2 Signatures: Dispatcher [employer] EDMS Anastacio Mccullough, COMMERCIAL SERVICE TECHNICIAN COMMERCIAL SERVICE TECHNICIAN Wallace Carter Jennifer,RN RN js13 Iglesia, Nery Grimm RN RN ms18 Alka Santiago MD MD Carlene Nicholson RN RN cf2 The chart was reviewed and I authenticate all verbal orders and agree with the evaluation and treatment provided.Attachments: 22:46 [facility] Payment Agreement zo MTDD
--- NOTE | 2016-10-09 23:22 | EDDOCDS ---
Physician Documentation [facility] Name: Valeria Weir Age: 81 yrs Sex: Female : 1935 Arrival Date: 10/09/2016 Time: 17:56 Bed 12 Private MD: Frank Lorenz A. Disposition: 10/09/16 22:40 Discharged to Home/Self Care. Impression: Zoster [herpes zoster], Atypical facial pain. - Condition is Stable. - Discharge Instructions: Shingles. - Prescriptions for Zofran 4 mg Oral Tablet - take 1 tablet by ORAL route 4 times per day As needed; 10 tablet. - Medication Reconciliation, Local Pharmacy Hours form. - Follow up: Frank Lorenz; When: 4 - 5 days; Reason: Recheck today's complaints, Continuance of care. - Problem is an acute exacerbation. - Symptoms have improved. Historical: - Allergies: cefadroxil; Ciprofloxacin; SUCCINYLCHOLINE; - Home Meds: 1. aspirin 325 mg Oral tab 1 tab once daily 2. atorvastatin 10 mg oral tab 1 tab once daily 3. escitalopram oxalate 5 mg oral tab 1 tab once daily 4. glimepiride 2 mg Oral tab 1 tab three times a day 5. levothyroxine 112 mcg Oral tab 1 tab once daily 6. lisinopril 10 mg Oral tab 1 tab once daily 7. magnesium oxide 400 mg Oral tab daily 8. metoprolol succinate oral 9. metoprolol tartrate 50 mg Oral tab 1 tab 2 times per day 10. omeprazole 20 mg Oral cpDR 1 cap once daily 11. sodium bicarbonate 325 mg Oral tab daily 12. acyclovir 800 mg Oral tab 1 tab 5 times per day just started yesterday 10/08/16 13. [place] 5-325 mg Oral tab 1 tab every 4-6 hours - PMHx: Cancer, Breast - Left; Diabetes - NIDDM: controlled; GERD; High Cholesterol; Hypertension; Hypothyroidism; Shingles; Kidney stones; Renal Failure w/o Dialysis; - PSHx: CABG; R kidney removed; Cholecystectomy; Hernia repair; Hysterectomy; - Social history: Smoking status: Patient states was never smoker of tobacco. No barriers to communication noted, The patient speaks fluent Estonian. - Family history: Not pertinent. - : The pt / caregiver states he / she is not on anticoagulants. Home medication list is obtained from the patient. - Exposure Risk Screening:: None identified. Vital Signs: 10/09 17:58 BP 225 / 108; Pulse 86; Resp 18 S; Temp 96.8(O); Pulse Ox 95% on R/A; Weight 88.9 kg / dd6 195.99 lbs (R); Height 5 ft. 1 in. (154.94 cm) (R); 18:24 BP 180 / 80 RA Supine (man/lg); Pulse 76; Resp 16; Pulse Ox 96% on R/A; js13 19:28 BP 150 / 76 RA Supine (man/); Pulse 79; jf3 19:28 BP 148 / 72 RA Sitting (man/); Pulse 89; jf3 19:28 BP 150 / 70 RA Standing (man/); Pulse 89; jf3 22:45 Pulse 79; Resp 18; Temp 97.3(T); Pulse Ox 98% on R/A; Pain 2/10; chalo 17:58 Body Mass Index 37.03 (88.90 kg, 154.94 cm) dd6 MDM: 18:43 Plate Mill Mill Hand/Pulse Ox/q 30 min VS ordered. fg 18:43 IV Saline Lock ordered. fg 18:43 Rhythm Strip to chart ordered. fg 18:43 Undress patient appropriately for examination ordered. fg 18:43 Orthostatic VS ordered. fg 18:44 B-Type Natiuretic Peptide Ordered. EDMS 18:44 Basic Metabolic Profile Ordered. EDMS 18:44 CBC with Diff Ordered. EDMS 18:44 Cardiac Injury Profile Ordered. EDMS 18:44 Troponin Ordered. EDMS 18:44 portable chest Ordered. EDMS 18:44 ECG WITH READING ER PHYS+CARDIAG ordered. EDMS 20:30 B-Type Natiuretic Peptide Reviewed. ke 20:30 Basic Metabolic Profile Reviewed. ke 20:30 CBC with Diff Reviewed. ke 20:30 Cardiac Injury Profile Reviewed. ke 20:30 Troponin Reviewed. ke 20:30 portable chest Reviewed. ke 20:38 Ondansetron 8 mg IVP once ordered. ke 20:38 morphine 4 mg IVP once ordered. ke 20:38 Redraw CIP &Troponin (put time in details section) ordered. ke 20:43 Redraw CIP &Troponin (put time in details section) complete. sew 20:44 CARDIAC MARKER PANEL Ordered. EDMS 21:17 Financial registration complete. zo 21:43 ECG WITH READING ER PHYS ordered. EDMS 22:28 CARDIAC MARKER PANEL Reviewed. jose m 22:46 [facility] Payment Agreement was scanned into [employer] and attached to record. zo Administered Medications: 20:47 Drug: Ondansetron 8 mg [ondansetron HCl 2 mg/mL intravenous solution (3.75 mL)] Route: cf2 IVP; Site: left antecubital; 21:40 Follow up: Response: Pain is decreased cf2 20:47 Drug: morphine 4 mg [morphine 4 mg/mL intravenous cartridge (1 mL)] Route: IVP; Site: cf2 left antecubital; 21:40 Follow up: Response: Pain is decreased cf2 Signatures: Dispatcher [employer] EDMS Anastacio Mccullough, GEAR SHAPER SET UP OPERATOR GEAR SHAPER SET UP OPERATOR Wallace Carter Jennifer,RN RN js13 Iglesia, Nery Grimm RN RN ms18 Alka Santiago MD MD Carlene Nicholson RN RN cf2 The chart was reviewed and I authenticate all verbal orders and agree with the evaluation and treatment provided.Attachments: 22:46 [facility] Payment Agreement zo MTDD
--- NOTE | 2016-10-09 23:22 | EDDOCDS ---
[facility] Name: Valeria Weir Age: 81 yrs Sex: Female : 1935 Arrival Date: 10/09/2016 Time: 17:56 Bed 12 Private MD: Frank Lorenz A. Diagnosis: Zoster [herpes zoster];Atypical facial pain Presentation: 10/09 18:05 Presenting complaint: Patient states: that she started feeling nauseous approx 2 hrs ms18 ago. Pt states that she was seen here yesterday and diagnosed with shingles. Pt states that she may have taken too much of the medication that was prescribed to her, Pt also c/o headache at this time. Adult Sepsis Screening: The patient does not have new or worsening altered mentation. Patient's respiratory rate is less than 22. Systolic blood pressure is greater than 100. Patient has a qSOFA score of 0- Negative Sepsis Screen. Suicide/Homicide risk assessment- the patient denies having any suicidal and/or homicidal ideations and does not present with any other emotional, behavioral or mental health complaints. Status: Patient is not a sales service promoter or dependent. Transition of care: patient was not received from another setting of care. Red Flag criteria, patient assessed and taken directly to a bed. 18:05 Acuity: TERRA Level 3 ms18 18:05 Method Of Arrival: Walkin/Carried/Asstd ms18 Triage Assessment: 18:11 General: Appears in no apparent distress, obese, Behavior is appropriate for age, ms18 cooperative. Pain: Location: head, neck, face Pain currently is 5 out of 10 on a pain scale. The patient is triaged at the bedside. See Assessment in Nurses Notes section of ED record. Neurological: Level of Consciousness is awake, alert, obeys commands, Oriented to person, place, time. Respiratory: Airway is patent Respiratory effort is even, unlabored. GI: Abdomen is obese, Reports nausea, vomiting. Derm: Skin is pink, warm & dry. Historical: - Allergies: cefadroxil; Ciprofloxacin; SUCCINYLCHOLINE; - Home Meds: 1. aspirin 325 mg Oral tab 1 tab once daily 2. atorvastatin 10 mg oral tab 1 tab once daily 3. escitalopram oxalate 5 mg oral tab 1 tab once daily 4. glimepiride 2 mg Oral tab 1 tab three times a day 5. levothyroxine 112 mcg Oral tab 1 tab once daily 6. lisinopril 10 mg Oral tab 1 tab once daily 7. magnesium oxide 400 mg Oral tab daily 8. metoprolol succinate oral 9. metoprolol tartrate 50 mg Oral tab 1 tab 2 times per day 10. omeprazole 20 mg Oral cpDR 1 cap once daily 11. sodium bicarbonate 325 mg Oral tab daily 12. acyclovir 800 mg Oral tab 1 tab 5 times per day just started yesterday 10/08/16 13. [place] 5-325 mg Oral tab 1 tab every 4-6 hours - PMHx: Cancer, Breast - Left; Diabetes - NIDDM: controlled; GERD; High Cholesterol; Hypertension; Hypothyroidism; Shingles; Kidney stones; Renal Failure w/o Dialysis; - PSHx: CABG; R kidney removed; Cholecystectomy; Hernia repair; Hysterectomy; - Social history: Smoking status: Patient states was never smoker of tobacco. No barriers to communication noted, The patient speaks fluent Uzbek. - Family history: Not pertinent. - : The pt / caregiver states he / she is not on anticoagulants. Home medication list is obtained from the patient. - Exposure Risk Screening:: None identified. Screenin:15 Screening information is obtained from the patient. Fall risk: At risk due to age. js13 Assistance ADL's: requires no assistance with activities of daily living. Abuse/DV Screen: The patient / caregiver reports he/she is: not in a situation that causes fear, pain or injury. Nutritional screening: No deficits noted. Advance Directives: There is no active DNR order. home support is adequate. Assessment: 18:56 General: Appears in no apparent distress, Behavior is cooperative. Pain: Location: head jf3 and face. Neurological: Level of Consciousness is awake, alert, Oriented to person, place, time, Lumber Sticker are equal bilaterally Moves all extremities. 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 Cardiovascular: Capillary refill < 3 seconds. Respiratory: Airway is patent Respiratory effort is even, unlabored, Respiratory pattern is regular, symmetrical. Derm: rash adn blistering noted to head, neck, and face. Pt with dx of shingles. 22:13 Reassessment: Patient states feeling better. Patient states symptoms have improved. cf2 Adult Sepsis Screening: The patient does not have new or worsening altered mentation. Patient's respiratory rate is less than 22. Systolic blood pressure is greater than 100. Patient has a qSOFA score of 0- Negative Sepsis Screen. 23:07 Reassessment: Patient states feeling better. Patient states symptoms have improved. cf2 Vital Signs: 17:58 BP 225 / 108; Pulse 86; Resp 18 S; Temp 96.8(O); Pulse Ox 95% on R/A; Weight 88.9 kg dd6 (R); Height 5 ft. 1 in. (154.94 cm) (R); 18:24 BP 180 / 80 RA Supine (man/lg); Pulse 76; Resp 16; Pulse Ox 96% on R/A; js13 19:28 BP 150 / 76 RA Supine (man/); Pulse 79; jf3 19:28 BP 148 / 72 RA Sitting (man/); Pulse 89; jf3 19:28 BP 150 / 70 RA Standing (man/); Pulse 89; jf3 22:45 Pulse 79; Resp 18; Temp 97.3(T); Pulse Ox 98% on R/A; Pain 2/10; chalo 17:58 Body Mass Index 37.03 (88.90 kg, 154.94 cm) dd6 Vitals: 17:58 Log In Time: October 09, 2016 at 17:56. dd6 17:59 RN notified that patient meets Red Flag criteria. dd6 ED Course: 17:57 Patient visited by Jose Perez PCA. dd6 17:57 Frank Lorenz is Private Physician. dd6 17:57 Patient moved to Waiting dd6 18:01 Shahla Lopez,RN is Primary Nurse. ms18 18:01 Patient moved to 13 ms18 18:05 Patient visited by Nery Trevino RN. ms18 18:07 Triage Initiated ms18 18:15 The patient / caregiver is instructed regarding the plan of care and ED course. js13 18:16 Patient visited by Shahla Lopez,PATRICK. js13 18:52 Pt greeted and oriented to ED. Patient advised of names of staff involved in care, chalo location of call hendricks, wait times and NPO status. Accompanied by Family Member, Patient has correct armband on for positive identification. Placed in gown. Bed in low position. Call light in reach. Side rails up X2. bus driver/monitor on. Pulse ox on. NIBP on. 18:52 EKG done. (by ED staff). Reviewed by Alka Santiago MD. chalo 18:57 Patient visited by Darell Reza RN. jf3 19:04 Primary Nurse role handed off by Shahla Lopez,PATRICK js13 19:14 B-Type Natiuretic Peptide Sent. jf3 19:14 Basic Metabolic Profile Sent. jf3 19:14 CBC with Diff Sent. jf3 19:14 Cardiac Injury Profile Sent. jf3 19:14 Troponin Sent. jf3 19:29 Patient visited by Darell Reza RN. jf3 19:34 Assisted to bedside commode. chalo 19:35 Patient visited by Jacquelyn Harding PCA. chalo 19:39 Patient visited by Darell Reza RN. jf3 19:39 Inserted saline lock: 20 gauge in left antecubital area The patient tolerated the jf3 procedure well. 20:02 Patient moved to 12 jf3 20:07 Carlene Nicholson RN is Primary Nurse. cf2 20:07 Patient visited by Carlene Nicholson RN. cf2 20:20 portable chest Returned. EDMS 20:22 Patient visited by Carlene Nicholson RN. cf2 20:29 Anastacio Mccullough FNP is PHCP. ke 20:29 Patient visited by Anastacio Mccullough FNP. ke 20:29 Patient visited by Anastacio Mccullough FNP. ke 20:37 Patient visited by Carlene Nicholson RN. cf2 20:38 Patient visited by Carlene Nicholson RN. cf2 21:08 Patient visited by Carlene Nicholson RN. cf2 21:42 Patient visited by Anastacio Mccullough FNP. ke 21:59 Patient visited by Jacquelyn Harding PCA. chalo 21:59 CARDIAC MARKER PANEL Sent. chalo 21:59 EKG done. (by ED staff). Reviewed by Anastacio TORRES. chalo 22:13 Patient visited by Carlene Nicholson RN. cf2 22:38 Patient visited by Anastacio Mccullough FNP. ke 22:38 Frank Lorenz is Referral Physician. ke 22:45 Patient visited by Jacquelyn Harding PCA. chalo 22:46 [facility] Payment Agreement was scanned into Pedius and attached to record. zo 23:07 Patient visited by Carlene Nicholson RN. cf2 23:07 Discontinued lock. No procedures done that require assistance. cf2 23:09 Tang Suero MD is Attending Physician. cf2 23:21 Primary Nurse role handed off by Carlene Nicholson RN ke Administered Medications: 20:47 Drug: Ondansetron 8 mg [ondansetron HCl 2 mg/mL intravenous solution (3.75 mL)] Route: cf2 IVP; Site: left antecubital; 21:40 Follow up: Response: Pain is decreased cf2 20:47 Drug: morphine 4 mg [morphine 4 mg/mL intravenous cartridge (1 mL)] Route: IVP; Site: cf2 left antecubital; 21:40 Follow up: Response: Pain is decreased cf2 Order Results: Lab Order: B-Type Natiuretic Peptide; SPEC'M 10/09/16 19:12 Test: BRAIN NATRIURETIC PEPTIDE; Value: 209; Range: <100; Abnormal: Above high normal; Units: PG/ML; Status: F Lab Order: Basic Metabolic Profile; SPEC'M 10/09/16 19:12 Test: GLUCOSE, FASTING; Value: 155; Range: 83-110; Abnormal: Above high normal; Units: MG/DL; Status: F Test: BLOOD UREA NITROGEN; Value: 11; Range: 7-18; Units: MG/DL; Status: F Test: CREATININE FOR GFR; Value: 0.92; Range: 0.55-1.02; Units: MG/DL; Status: F Test: GLOMERULAR FILTRATION RATE; Value: > 60.0; Range: >32; Status: F Test: SODIUM LEVEL; Value: 132; Range: 136-145; Abnormal: Below low normal; Units: MEQ/L; Status: F Test: POTASSIUM SERUM; Value: 3.2; Range: 3.5-5.1; Abnormal: Below low normal; Units: MEQ/L; Status: F Test: CHLORIDE LEVEL; Value: 94; Range: 98-107; Abnormal: Below low normal; Units: MEQ/L; Status: F Test: CARBON DIOXIDE LEVEL; Value: 25; Range: 21-32; Units: MEQ/L; Status: F Test: ANION GAP; Value: 13; Range: 8-16; Units: MEQ/L; Status: F Test: CALCIUM LEVEL; Value: 8.5; Range: 8.8-10.2; Abnormal: Below low normal; Units: MG/DL; Status: F Test Note: ; Units are mL/min/1.73 m2 Chronic Kidney Disease Staging per NKF: Stage I & II GFR >=60 Normal to Mildly Decreased Stage III GFR 30-59 Moderately Decreased Stage IV GFR 15-29 Severely Decreased Stage V GFR <15 Very Little GFR Left ESRD GFR <15 on INSTRUMENT TECHNOLOGIST Lab Order: CBC with Diff; SPEC'M 10/09/16 19:12 Test: WHITE BLOOD COUNT; Value: 6.7; Range: 4.0-10.0; Units: K/mm3; Status: F Test: RED BLOOD COUNT; Value: 4.47; Range: 4.00-5.40; Units: M/mm3; Status: F Test: HEMOGLOBIN; Value: 13.3; Range: 12.0-16.0; Units: g/dl; Status: F Test: HEMATOCRIT; Value: 39.9; Range: 36.0-47.0; Units: %; Status: F Test: MEAN CORPUSCULAR VOLUME; Value: 89.1; Range: 80.0-96.0; Units: fl; Status: F Test: MEAN CORPUSCULAR HEMOGLOBIN; Value: 29.7; Range: 27.0-33.0; Units: pg; Status: F Test: MEAN CORPUSCULAR HGB CONC; Value: 33.3; Range: 32.0-36.5; Units: g/dl; Status: F Test: RED CELL DISTRIBUTION WIDTH; Value: 15.2; Range: 11.5-14.5; Abnormal: Above high normal; Units: %; Status: F Test: PLATELET COUNT, AUTOMATED; Value: 190; Range: 150-450; Units: k/mm3; Status: F Test: NEUTROPHILS %; Value: 68.4; Range: 36.0-66.0; Abnormal: Above high normal; Units: %; Status: F Test: LYMPH %; Value: 17.7; Range: 24.0-44.0; Abnormal: Below low normal; Units: %; Status: F Test: MONO %; Value: 5.5; Range: 0.0-5.0; Abnormal: Above high normal; Units: %; Status: F Test: EOS %; Value: 1.7; Range: 0.0-3.0; Units: %; Status: F Test: BASO %; Value: 1.4; Range: 0.0-1.0; Abnormal: Above high normal; Units: %; Status: F Test: LARGE UNSTAINED CELL %; Value: 5.3; Range: 0.0-4.0; Abnormal: Above high normal; Units: %; Status: F Test: NEUTROPHILS #; Value: 4.6; Range: 1.8-7.7; Units: K/mm3; Status: F Test: LYMPH #; Value: 1.5; Range: 1.5-4.5; Units: K/mm3; Status: F Test: MONO #; Value: 0.4; Range: 0.0-0.8; Units: K/mm3; Status: F Test: EOS #; Value: 0.1; Range: 0.0-0.50; Units: K/mm3; Status: F Test: BASO #; Value: 0.1; Range: 0.0-0.2; Units: K/mm3; Status: F Test: LARGE UNSTAINED CELL #; Value: 0.4; Range: 0.0-0.4; Units: K/mm3; Status: F Lab Order: Cardiac Injury Profile; SPEC' 10/09/16 19:12 Test: CPK CREATINE PHOSPHOKINASE; Value: 36; Range: 26-192; Units: U/L; Status: F Test: CK-MB VALUE MASS; Value: 1.8; Range: 0.0-3.6; Units: NG/ML; Status: F Test: MB/CK RELATIVE INDEX; Value: 5.00; Range: < OR =4; Abnormal: Above high normal; Status: F Test Note: ; DIAGNOSIS CRITERIA MMB ng/ml Relative Index (RI) NON-AMI < or = 5 N/A [place]ONE > 5 < or = 4 AMI > 5 > 4 Lab Order: Troponin; SPEC'M 10/09/16 19:12 Test: TROPONIN I; Value: 0.06; Range: < 0.10; Units: NG/ML; Status: F Test Note: ; Troponin I Reference Interval for Siemens [place] LOCI: 99th Percentile= 0.00-0.045 ng/ml Risk Stratification: <= 0.10 ng/ml Decreased Risk for Adverse Clinical Events. 0.10-1.50 ng/ml Increased Risk for Adverse Clinical Events. Evaluation of additional criterion and/or repeat testing in 2-6 hours is suggested to rule out myocardial damage. >= 1.50 ng/ml Indicative of Myocardial Injury. Lab Order: CARDIAC MARKER PANEL; SPEC'M 10/09/16 21:58 Test: CPK CREATINE PHOSPHOKINASE; Value: 34; Range: 26-192; Units: U/L; Status: F Test: CK-MB VALUE MASS; Value: 1.0; Range: 0.0-3.6; Units: NG/ML; Status: F Test: MB/CK RELATIVE INDEX; Value: 2.94; Range: < OR =4; Status: F Test: TROPONIN I; Value: 0.06; Range: < 0.10; Units: NG/ML; Status: F Test Note: ; DIAGNOSIS CRITERIA MMB ng/ml Relative Index (RI) NON-AMI < or = 5 N/A [place]ONE > 5 < or = 4 AMI > 5 > 4 Radiology Order: portable chest Test: portable chest REASON FOR EXAMINATION: Chest Pain; Clinical: Chest pain.; ; Technique: 09/19/2016.; ; Findings:; Evaluation is limited by portable technique. Mediastinum and cardiac silhouette; are stable. Lung santamaria demonstrate chronic-appearing pleural parenchymal; changes and superimposed basilar atelectasis cannot be excluded. Effusion cannot; be excluded. No pneumothorax.; ; Impression:; Cannot exclude superimposed bibasilar atelectasis and possible pleural effusion.; ; ; Signed by; Fernando Menjivar MD 10/09/2016 07:47 P; Outcome: 22:40 Discharge ordered by Provider. jose m 23:07 Discharge Assessment: Patient awake, alert and oriented x 3. No cognitive and/or cf2 functional deficits noted. Patient verbalized understanding of disposition instructions. Patient awake and alert. patient administered narcotics - yes. Pt provided with safe discharge. The following High Risk Discharge criteria are identified: None. Discharged to home ambulatory, with family. Condition: good Condition: stable Condition: improved. No special radiology studies were completed. Property :Personal belongings accompany Pt. 23:09 Patient left the ED. cf2 23:21 Patient left the ED. ke Signatures: Dispatcher [employer] EDAnastacio Warner, MASTICATOR MASTICATORWallace Lugo Daniell, COOPER APPRENTICE COOPER APPRENTICE dd6 Jacquelyn Harding, COOPER APPRENTICE COOPER APPRENTICE chalo Shahla Lopez,RN RN js13 Nery Trevino RN RN ms18 Darell Reza,RN RN jf3 Carlene Nicholson,RN RN cf2 MTDD
--- NOTE | 2016-10-10 08:12 | ECGEPIP ---
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
--- NOTE | 2016-10-10 08:14 | ECGEPIP ---
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
--- NOTE | 2016-10-12 00:22 | EDDOCDS ---
Physician Documentation [facility] Name: Valeria Weir Age: 81 yrs Sex: Female : 1935 Arrival Date: 10/09/2016 Time: 17:56 Bed 12 Private MD: Frank Lorenz A. Disposition: 10/09/16 22:40 Discharged to Home/Self Care. Impression: Zoster [herpes zoster], Atypical facial pain. - Condition is Stable. - Discharge Instructions: Shingles. - Prescriptions for Zofran 4 mg Oral Tablet - take 1 tablet by ORAL route 4 times per day As needed; 10 tablet. - Medication Reconciliation, Local Pharmacy Hours form. - Follow up: Frank Lorenz; When: 4 - 5 days; Reason: Recheck today's complaints, Continuance of care. - Problem is an acute exacerbation. - Symptoms have improved. Historical: - Allergies: cefadroxil; Ciprofloxacin; SUCCINYLCHOLINE; - Home Meds: 1. aspirin 325 mg Oral tab 1 tab once daily 2. atorvastatin 10 mg oral tab 1 tab once daily 3. escitalopram oxalate 5 mg oral tab 1 tab once daily 4. glimepiride 2 mg Oral tab 1 tab three times a day 5. levothyroxine 112 mcg Oral tab 1 tab once daily 6. lisinopril 10 mg Oral tab 1 tab once daily 7. magnesium oxide 400 mg Oral tab daily 8. metoprolol succinate oral 9. metoprolol tartrate 50 mg Oral tab 1 tab 2 times per day 10. omeprazole 20 mg Oral cpDR 1 cap once daily 11. sodium bicarbonate 325 mg Oral tab daily 12. acyclovir 800 mg Oral tab 1 tab 5 times per day just started yesterday 10/08/16 13. [place] 5-325 mg Oral tab 1 tab every 4-6 hours - PMHx: Cancer, Breast - Left; Diabetes - NIDDM: controlled; GERD; High Cholesterol; Hypertension; Hypothyroidism; Shingles; Kidney stones; Renal Failure w/o Dialysis; - PSHx: CABG; R kidney removed; Cholecystectomy; Hernia repair; Hysterectomy; - Social history: Smoking status: Patient states was never smoker of tobacco. No barriers to communication noted, The patient speaks fluent Khmer. - Family history: Not pertinent. - : The pt / caregiver states he / she is not on anticoagulants. Home medication list is obtained from the patient. - Exposure Risk Screening:: None identified. Vital Signs: 10/09 17:58 BP 225 / 108; Pulse 86; Resp 18 S; Temp 96.8(O); Pulse Ox 95% on R/A; Weight 88.9 kg / dd6 195.99 lbs (R); Height 5 ft. 1 in. (154.94 cm) (R); 18:24 BP 180 / 80 RA Supine (man/lg); Pulse 76; Resp 16; Pulse Ox 96% on R/A; js13 19:28 BP 150 / 76 RA Supine (man/); Pulse 79; jf3 19:28 BP 148 / 72 RA Sitting (man/); Pulse 89; jf3 19:28 BP 150 / 70 RA Standing (man/); Pulse 89; jf3 22:45 Pulse 79; Resp 18; Temp 97.3(T); Pulse Ox 98% on R/A; Pain 2/10; chalo 17:58 Body Mass Index 37.03 (88.90 kg, 154.94 cm) dd6 MDM: 18:43 Nutrition Associate/Pulse Ox/q 30 min VS ordered. fg 18:43 IV Saline Lock ordered. fg 18:43 Rhythm Strip to chart ordered. fg 18:43 Undress patient appropriately for examination ordered. fg 18:43 Orthostatic VS ordered. fg 18:44 B-Type Natiuretic Peptide Ordered. EDMS 18:44 Basic Metabolic Profile Ordered. EDMS 18:44 CBC with Diff Ordered. EDMS 18:44 Cardiac Injury Profile Ordered. EDMS 18:44 Troponin Ordered. EDMS 18:44 portable chest Ordered. EDMS 18:44 ECG WITH READING ER PHYS+CARDIAG ordered. EDMS 20:30 B-Type Natiuretic Peptide Reviewed. ke 20:30 Basic Metabolic Profile Reviewed. ke 20:30 CBC with Diff Reviewed. ke 20:30 Cardiac Injury Profile Reviewed. ke 20:30 Troponin Reviewed. ke 20:30 portable chest Reviewed. ke 20:38 Ondansetron 8 mg IVP once ordered. ke 20:38 morphine 4 mg IVP once ordered. ke 20:38 Redraw CIP &Troponin (put time in details section) ordered. ke 20:43 Redraw CIP &Troponin (put time in details section) complete. sew 20:44 CARDIAC MARKER PANEL Ordered. EDMS 21:17 Financial registration complete. zo 21:43 ECG WITH READING ER PHYS ordered. EDMS 22:28 CARDIAC MARKER PANEL Reviewed. jose m 22:46 [facility] Payment Agreement was scanned into [employer] and attached to record. zo 10/10 01:42 T-Sheet-- Draft Copy was scanned into [employer] and attached to record. lja 10:55 ECG/EKG was scanned into [employer] and attached to record. gb Administered Medications: 10/09 20:47 Drug: Ondansetron 8 mg [ondansetron HCl 2 mg/mL intravenous solution (3.75 mL)] Route: cf2 IVP; Site: left antecubital; 21:40 Follow up: Response: Pain is decreased cf2 20:47 Drug: morphine 4 mg [morphine 4 mg/mL intravenous cartridge (1 mL)] Route: IVP; Site: cf2 left antecubital; 21:40 Follow up: Response: Pain is decreased cf2 Signatures: Dispatcher [employer] EDMS Qi Garland, Reg Reg gb Anastacio Mccullough, TECHNICAL CLERK TECHNICAL CLERK Wallace Carter Jennifer,RN RN js13 Iglesia, Nery Grimm RN RN ms18 Arel, Alka Lopes MD MD fg Familetti-Gonzalez, Christina,RN RN cf2 The chart was reviewed and I authenticate all verbal orders and agree with the evaluation and treatment provided.Attachments: 22:46 [facility] Payment Agreement zo 10/10 01:42 T-Sheet-- Draft Copy lja 10:55 ECG/EKG gb Chart Complete MTDD
--- NOTE | 2016-10-12 00:22 | EDDOCDS ---
Physician Documentation [facility] Name: Valeria Weir Age: 81 yrs Sex: Female : 1935 Arrival Date: 10/09/2016 Time: 17:56 Bed 12 Private MD: Frank Lorenz A. Disposition: 10/09/16 22:40 Discharged to Home/Self Care. Impression: Zoster [herpes zoster], Atypical facial pain. - Condition is Stable. - Discharge Instructions: Shingles. - Prescriptions for Zofran 4 mg Oral Tablet - take 1 tablet by ORAL route 4 times per day As needed; 10 tablet. - Medication Reconciliation, Local Pharmacy Hours form. - Follow up: Frank Lorenz; When: 4 - 5 days; Reason: Recheck today's complaints, Continuance of care. - Problem is an acute exacerbation. - Symptoms have improved. Historical: - Allergies: cefadroxil; Ciprofloxacin; SUCCINYLCHOLINE; - Home Meds: 1. aspirin 325 mg Oral tab 1 tab once daily 2. atorvastatin 10 mg oral tab 1 tab once daily 3. escitalopram oxalate 5 mg oral tab 1 tab once daily 4. glimepiride 2 mg Oral tab 1 tab three times a day 5. levothyroxine 112 mcg Oral tab 1 tab once daily 6. lisinopril 10 mg Oral tab 1 tab once daily 7. magnesium oxide 400 mg Oral tab daily 8. metoprolol succinate oral 9. metoprolol tartrate 50 mg Oral tab 1 tab 2 times per day 10. omeprazole 20 mg Oral cpDR 1 cap once daily 11. sodium bicarbonate 325 mg Oral tab daily 12. acyclovir 800 mg Oral tab 1 tab 5 times per day just started yesterday 10/08/16 13. [place] 5-325 mg Oral tab 1 tab every 4-6 hours - PMHx: Cancer, Breast - Left; Diabetes - NIDDM: controlled; GERD; High Cholesterol; Hypertension; Hypothyroidism; Shingles; Kidney stones; Renal Failure w/o Dialysis; - PSHx: CABG; R kidney removed; Cholecystectomy; Hernia repair; Hysterectomy; - Social history: Smoking status: Patient states was never smoker of tobacco. No barriers to communication noted, The patient speaks fluent Uzbek. - Family history: Not pertinent. - : The pt / caregiver states he / she is not on anticoagulants. Home medication list is obtained from the patient. - Exposure Risk Screening:: None identified. Vital Signs: 10/09 17:58 BP 225 / 108; Pulse 86; Resp 18 S; Temp 96.8(O); Pulse Ox 95% on R/A; Weight 88.9 kg / dd6 195.99 lbs (R); Height 5 ft. 1 in. (154.94 cm) (R); 18:24 BP 180 / 80 RA Supine (man/lg); Pulse 76; Resp 16; Pulse Ox 96% on R/A; js13 19:28 BP 150 / 76 RA Supine (man/); Pulse 79; jf3 19:28 BP 148 / 72 RA Sitting (man/); Pulse 89; jf3 19:28 BP 150 / 70 RA Standing (man/); Pulse 89; jf3 22:45 Pulse 79; Resp 18; Temp 97.3(T); Pulse Ox 98% on R/A; Pain 2/10; chalo 17:58 Body Mass Index 37.03 (88.90 kg, 154.94 cm) dd6 MDM: 18:43 Net Mvc Developer/Pulse Ox/q 30 min VS ordered. fg 18:43 IV Saline Lock ordered. fg 18:43 Rhythm Strip to chart ordered. fg 18:43 Undress patient appropriately for examination ordered. fg 18:43 Orthostatic VS ordered. fg 18:44 B-Type Natiuretic Peptide Ordered. EDMS 18:44 Basic Metabolic Profile Ordered. EDMS 18:44 CBC with Diff Ordered. EDMS 18:44 Cardiac Injury Profile Ordered. EDMS 18:44 Troponin Ordered. EDMS 18:44 portable chest Ordered. EDMS 18:44 ECG WITH READING ER PHYS+CARDIAG ordered. EDMS 20:30 B-Type Natiuretic Peptide Reviewed. ke 20:30 Basic Metabolic Profile Reviewed. ke 20:30 CBC with Diff Reviewed. ke 20:30 Cardiac Injury Profile Reviewed. ke 20:30 Troponin Reviewed. ke 20:30 portable chest Reviewed. ke 20:38 Ondansetron 8 mg IVP once ordered. ke 20:38 morphine 4 mg IVP once ordered. ke 20:38 Redraw CIP &Troponin (put time in details section) ordered. ke 20:43 Redraw CIP &Troponin (put time in details section) complete. sew 20:44 CARDIAC MARKER PANEL Ordered. EDMS 21:17 Financial registration complete. zo 21:43 ECG WITH READING ER PHYS ordered. EDMS 22:28 CARDIAC MARKER PANEL Reviewed. jose m 22:46 [facility] Payment Agreement was scanned into [employer] and attached to record. zo 10/10 01:42 T-Sheet-- Draft Copy was scanned into [employer] and attached to record. lja 10:55 ECG/EKG was scanned into [employer] and attached to record. gb Administered Medications: 10/09 20:47 Drug: Ondansetron 8 mg [ondansetron HCl 2 mg/mL intravenous solution (3.75 mL)] Route: cf2 IVP; Site: left antecubital; 21:40 Follow up: Response: Pain is decreased cf2 20:47 Drug: morphine 4 mg [morphine 4 mg/mL intravenous cartridge (1 mL)] Route: IVP; Site: cf2 left antecubital; 21:40 Follow up: Response: Pain is decreased cf2 Signatures: Dispatcher [employer] EDMS Qi Garland, Reg Reg gb Anastacio Mccullough, STRUCTURAL STEEL WORKER STRUCTURAL STEEL WORKER Wallace Carter Jennifer,RN RN js13 Iglesia, Nery Grimm RN RN ms18 Arel, Alka Lopes MD MD fg Familetti-Gonzalez, Christina,RN RN cf2 The chart was reviewed and I authenticate all verbal orders and agree with the evaluation and treatment provided.Attachments: 22:46 [facility] Payment Agreement zo 10/10 01:42 T-Sheet-- Draft Copy lja 10:55 ECG/EKG gb Chart Complete MTDD
--- NOTE | 2016-10-12 00:22 | EDDOCDS ---
Nurse's Notes [facility] Name: Sarah Weir Age: 81 yrs Sex: Female : 1935 Arrival Date: 10/09/2016 Time: 17:56 Bed 12 Private MD: Frank Lorenz A. Diagnosis: Zoster [herpes zoster];Atypical facial pain Presentation: 10/09 18:05 Presenting complaint: Patient states: that she started feeling nauseous approx 2 hrs ms18 ago. Pt states that she was seen here yesterday and diagnosed with shingles. Pt states that she may have taken too much of the medication that was prescribed to her, Pt also c/o headache at this time. Adult Sepsis Screening: The patient does not have new or worsening altered mentation. Patient's respiratory rate is less than 22. Systolic blood pressure is greater than 100. Patient has a qSOFA score of 0- Negative Sepsis Screen. Suicide/Homicide risk assessment- the patient denies having any suicidal and/or homicidal ideations and does not present with any other emotional, behavioral or mental health complaints. Status: Patient is not a student financial services counselor or dependent. Transition of care: patient was not received from another setting of care. Red Flag criteria, patient assessed and taken directly to a bed. 18:05 Acuity: TERRA Level 3 ms18 18:05 Method Of Arrival: Walkin/Carried/Asstd ms18 Triage Assessment: 18:11 General: Appears in no apparent distress, obese, Behavior is appropriate for age, ms18 cooperative. Pain: Location: head, neck, face Pain currently is 5 out of 10 on a pain scale. The patient is triaged at the bedside. See Assessment in Nurses Notes section of ED record. Neurological: Level of Consciousness is awake, alert, obeys commands, Oriented to person, place, time. Respiratory: Airway is patent Respiratory effort is even, unlabored. GI: Abdomen is obese, Reports nausea, vomiting. Derm: Skin is pink, warm & dry. Historical: - Allergies: cefadroxil; Ciprofloxacin; SUCCINYLCHOLINE; - Home Meds: 1. aspirin 325 mg Oral tab 1 tab once daily 2. atorvastatin 10 mg oral tab 1 tab once daily 3. escitalopram oxalate 5 mg oral tab 1 tab once daily 4. glimepiride 2 mg Oral tab 1 tab three times a day 5. levothyroxine 112 mcg Oral tab 1 tab once daily 6. lisinopril 10 mg Oral tab 1 tab once daily 7. magnesium oxide 400 mg Oral tab daily 8. metoprolol succinate oral 9. metoprolol tartrate 50 mg Oral tab 1 tab 2 times per day 10. omeprazole 20 mg Oral cpDR 1 cap once daily 11. sodium bicarbonate 325 mg Oral tab daily 12. acyclovir 800 mg Oral tab 1 tab 5 times per day just started yesterday 10/08/16 13. [place] 5-325 mg Oral tab 1 tab every 4-6 hours - PMHx: Cancer, Breast - Left; Diabetes - NIDDM: controlled; GERD; High Cholesterol; Hypertension; Hypothyroidism; Shingles; Kidney stones; Renal Failure w/o Dialysis; - PSHx: CABG; R kidney removed; Cholecystectomy; Hernia repair; Hysterectomy; - Social history: Smoking status: Patient states was never smoker of tobacco. No barriers to communication noted, The patient speaks fluent Azeri. - Family history: Not pertinent. - : The pt / caregiver states he / she is not on anticoagulants. Home medication list is obtained from the patient. - Exposure Risk Screening:: None identified. Screenin:15 Screening information is obtained from the patient. Fall risk: At risk due to age. js13 Assistance ADL's: requires no assistance with activities of daily living. Abuse/DV Screen: The patient / caregiver reports he/she is: not in a situation that causes fear, pain or injury. Nutritional screening: No deficits noted. Advance Directives: There is no active DNR order. home support is adequate. Assessment: 18:56 General: Appears in no apparent distress, Behavior is cooperative. Pain: Location: head jf3 and face. Neurological: Level of Consciousness is awake, alert, Oriented to person, place, time, Dialysis Tech are equal bilaterally Moves all extremities. 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 Cardiovascular: Capillary refill < 3 seconds. Respiratory: Airway is patent Respiratory effort is even, unlabored, Respiratory pattern is regular, symmetrical. Derm: rash adn blistering noted to head, neck, and face. Pt with dx of shingles. 22:13 Reassessment: Patient states feeling better. Patient states symptoms have improved. cf2 Adult Sepsis Screening: The patient does not have new or worsening altered mentation. Patient's respiratory rate is less than 22. Systolic blood pressure is greater than 100. Patient has a qSOFA score of 0- Negative Sepsis Screen. 23:07 Reassessment: Patient states feeling better. Patient states symptoms have improved. cf2 Vital Signs: 17:58 BP 225 / 108; Pulse 86; Resp 18 S; Temp 96.8(O); Pulse Ox 95% on R/A; Weight 88.9 kg dd6 (R); Height 5 ft. 1 in. (154.94 cm) (R); 18:24 BP 180 / 80 RA Supine (man/lg); Pulse 76; Resp 16; Pulse Ox 96% on R/A; js13 19:28 BP 150 / 76 RA Supine (man/); Pulse 79; jf3 19:28 BP 148 / 72 RA Sitting (man/); Pulse 89; jf3 19:28 BP 150 / 70 RA Standing (man/); Pulse 89; jf3 22:45 Pulse 79; Resp 18; Temp 97.3(T); Pulse Ox 98% on R/A; Pain 2/10; chalo 17:58 Body Mass Index 37.03 (88.90 kg, 154.94 cm) dd6 Vitals: 17:58 Log In Time: October 09, 2016 at 17:56. dd6 17:59 RN notified that patient meets Red Flag criteria. dd6 ED Course: 17:57 Patient visited by Jose Perez PCA. dd6 17:57 Frank Lorenz is Private Physician. dd6 17:57 Patient moved to Waiting dd6 18:01 Shahla Lopez,RN is Primary Nurse. ms18 18:01 Patient moved to 13 ms18 18:05 Patient visited by Nery Trevino RN. ms18 18:07 Triage Initiated ms18 18:15 The patient / caregiver is instructed regarding the plan of care and ED course. js13 18:16 Patient visited by Shahla Lopez,PATRICK. js13 18:52 Pt greeted and oriented to ED. Patient advised of names of staff involved in care, chalo location of call hendricks, wait times and NPO status. Accompanied by Family Member, Patient has correct armband on for positive identification. Placed in gown. Bed in low position. Call light in reach. Side rails up X2. gambling monitor on. Pulse ox on. NIBP on. 18:52 EKG done. (by ED staff). Reviewed by Alka Santiago MD. chalo 18:57 Patient visited by Darell Reza RN. jf3 19:04 Primary Nurse role handed off by Shahla Lopez,PATRICK js13 19:14 B-Type Natiuretic Peptide Sent. jf3 19:14 Basic Metabolic Profile Sent. jf3 19:14 CBC with Diff Sent. jf3 19:14 Cardiac Injury Profile Sent. jf3 19:14 Troponin Sent. jf3 19:29 Patient visited by Darell Reza RN. jf3 19:34 Assisted to bedside commode. chalo 19:35 Patient visited by Jacquelyn Harding PCA. chalo 19:39 Patient visited by Darell Reza RN. jf3 19:39 Inserted saline lock: 20 gauge in left antecubital area The patient tolerated the jf3 procedure well. 20:02 Patient moved to 12 jf3 20:07 Carlene Nicholson RN is Primary Nurse. cf2 20:07 Patient visited by Carlene Nicholson RN. cf2 20:20 portable chest Returned. EDMS 20:22 Patient visited by Carlene Nichoslon RN. cf2 20:29 Anastacio Mccullough FNP is PHCP. ke 20:29 Patient visited by Anastacio Mccullough FNP. ke 20:29 Patient visited by Anastacio Mccullough FNP. ke 20:37 Patient visited by Carlene Nicholson RN. cf2 20:38 Patient visited by Carlene Nicholson RN. cf2 21:08 Patient visited by Carlene Nicholson RN. cf2 21:42 Patient visited by Anastacio Mccullough FNP. ke 21:59 Patient visited by Jacquelyn Harding PCA. chalo 21:59 CARDIAC MARKER PANEL Sent. chalo 21:59 EKG done. (by ED staff). Reviewed by Anastacio TORRES. chalo 22:13 Patient visited by Carlene Nicholson RN. cf2 22:38 Patient visited by Anastacio Mccullough FNP. ke 22:38 Frank Lorenz is Referral Physician. ke 22:45 Patient visited by Jacquelyn Harding PCA. chalo 22:46 [facility] Payment Agreement was scanned into [email or web address] and attached to record. zo 23:07 Patient visited by Carlene Nicholson RN. cf2 23:07 Discontinued lock. No procedures done that require assistance. cf2 23:09 Tang Suero MD is Attending Physician. cf2 23:21 Primary Nurse role handed off by Carlene Nicholson RN ke 10/10 01:42 T-Sheet-- Draft Copy was scanned into [email or web address] and attached to record. lja 08:36 EKG-ADULT Returned. EDMS 08:36 ECG WITH READING ER PHYS Returned. EDMS 10:55 ECG/EKG was scanned into [email or web address] and attached to record. gb Administered Medications: 10/09 20:47 Drug: Ondansetron 8 mg [ondansetron HCl 2 mg/mL intravenous solution (3.75 mL)] Route: cf2 IVP; Site: left antecubital; 21:40 Follow up: Response: Pain is decreased cf2 20:47 Drug: morphine 4 mg [morphine 4 mg/mL intravenous cartridge (1 mL)] Route: IVP; Site: cf2 left antecubital; 21:40 Follow up: Response: Pain is decreased cf2 Order Results: Lab Order: B-Type Natiuretic Peptide; SPEC'M 10/09/16 19:12 Test: BRAIN NATRIURETIC PEPTIDE; Value: 209; Range: <100; Abnormal: Above high normal; Units: PG/ML; Status: F Lab Order: Basic Metabolic Profile; SPEC'M 10/09/16 19:12 Test: GLUCOSE, FASTING; Value: 155; Range: 83-110; Abnormal: Above high normal; Units: MG/DL; Status: F Test: BLOOD UREA NITROGEN; Value: 11; Range: 7-18; Units: MG/DL; Status: F Test: CREATININE FOR GFR; Value: 0.92; Range: 0.55-1.02; Units: MG/DL; Status: F Test: GLOMERULAR FILTRATION RATE; Value: > 60.0; Range: >32; Status: F Test: SODIUM LEVEL; Value: 132; Range: 136-145; Abnormal: Below low normal; Units: MEQ/L; Status: F Test: POTASSIUM SERUM; Value: 3.2; Range: 3.5-5.1; Abnormal: Below low normal; Units: MEQ/L; Status: F Test: CHLORIDE LEVEL; Value: 94; Range: 98-107; Abnormal: Below low normal; Units: MEQ/L; Status: F Test: CARBON DIOXIDE LEVEL; Value: 25; Range: 21-32; Units: MEQ/L; Status: F Test: ANION GAP; Value: 13; Range: 8-16; Units: MEQ/L; Status: F Test: CALCIUM LEVEL; Value: 8.5; Range: 8.8-10.2; Abnormal: Below low normal; Units: MG/DL; Status: F Test Note: ; Units are mL/min/1.73 m2 Chronic Kidney Disease Staging per NKF: Stage I & II GFR >=60 Normal to Mildly Decreased Stage III GFR 30-59 Moderately Decreased Stage IV GFR 15-29 Severely Decreased Stage V GFR <15 Very Little GFR Left ESRD GFR <15 on GROUND EQUIPMENT MECHANIC Lab Order: CBC with Diff; SPEC'M 10/09/16 19:12 Test: WHITE BLOOD COUNT; Value: 6.7; Range: 4.0-10.0; Units: K/mm3; Status: F Test: RED BLOOD COUNT; Value: 4.47; Range: 4.00-5.40; Units: M/mm3; Status: F Test: HEMOGLOBIN; Value: 13.3; Range: 12.0-16.0; Units: g/dl; Status: F Test: HEMATOCRIT; Value: 39.9; Range: 36.0-47.0; Units: %; Status: F Test: MEAN CORPUSCULAR VOLUME; Value: 89.1; Range: 80.0-96.0; Units: fl; Status: F Test: MEAN CORPUSCULAR HEMOGLOBIN; Value: 29.7; Range: 27.0-33.0; Units: pg; Status: F Test: MEAN CORPUSCULAR HGB CONC; Value: 33.3; Range: 32.0-36.5; Units: g/dl; Status: F Test: RED CELL DISTRIBUTION WIDTH; Value: 15.2; Range: 11.5-14.5; Abnormal: Above high normal; Units: %; Status: F Test: PLATELET COUNT, AUTOMATED; Value: 190; Range: 150-450; Units: k/mm3; Status: F Test: NEUTROPHILS %; Value: 68.4; Range: 36.0-66.0; Abnormal: Above high normal; Units: %; Status: F Test: LYMPH %; Value: 17.7; Range: 24.0-44.0; Abnormal: Below low normal; Units: %; Status: F Test: MONO %; Value: 5.5; Range: 0.0-5.0; Abnormal: Above high normal; Units: %; Status: F Test: EOS %; Value: 1.7; Range: 0.0-3.0; Units: %; Status: F Test: BASO %; Value: 1.4; Range: 0.0-1.0; Abnormal: Above high normal; Units: %; Status: F Test: LARGE UNSTAINED CELL %; Value: 5.3; Range: 0.0-4.0; Abnormal: Above high normal; Units: %; Status: F Test: NEUTROPHILS #; Value: 4.6; Range: 1.8-7.7; Units: K/mm3; Status: F Test: LYMPH #; Value: 1.5; Range: 1.5-4.5; Units: K/mm3; Status: F Test: MONO #; Value: 0.4; Range: 0.0-0.8; Units: K/mm3; Status: F Test: EOS #; Value: 0.1; Range: 0.0-0.50; Units: K/mm3; Status: F Test: BASO #; Value: 0.1; Range: 0.0-0.2; Units: K/mm3; Status: F Test: LARGE UNSTAINED CELL #; Value: 0.4; Range: 0.0-0.4; Units: K/mm3; Status: F Lab Order: Cardiac Injury Profile; SPEC'M 10/09/16 19:12 Test: CPK CREATINE PHOSPHOKINASE; Value: 36; Range: 26-192; Units: U/L; Status: F Test: CK-MB VALUE MASS; Value: 1.8; Range: 0.0-3.6; Units: NG/ML; Status: F Test: MB/CK RELATIVE INDEX; Value: 5.00; Range: < OR =4; Abnormal: Above high normal; Status: F Test Note: ; DIAGNOSIS CRITERIA MMB ng/ml Relative Index (RI) NON-AMI < or = 5 N/A [place]ONE > 5 < or = 4 AMI > 5 > 4 Lab Order: Troponin; SPEC'M 10/09/16 19:12 Test: TROPONIN I; Value: 0.06; Range: < 0.10; Units: NG/ML; Status: F Test Note: ; Troponin I Reference Interval for Siem[employer] [place] LOCI: 99th Percentile= 0.00-0.045 ng/ml Risk Stratification: <= 0.10 ng/ml Decreased Risk for Adverse Clinical Events. 0.10-1.50 ng/ml Increased Risk for Adverse Clinical Events. Evaluation of additional criterion and/or repeat testing in 2-6 hours is suggested to rule out myocardial damage. >= 1.50 ng/ml Indicative of Myocardial Injury. Lab Order: CARDIAC MARKER PANEL; SPEC'M 10/09/16 21:58 Test: CPK CREATINE PHOSPHOKINASE; Value: 34; Range: 26-192; Units: U/L; Status: F Test: CK-MB VALUE MASS; Value: 1.0; Range: 0.0-3.6; Units: NG/ML; Status: F Test: MB/CK RELATIVE INDEX; Value: 2.94; Range: < OR =4; Status: F Test: TROPONIN I; Value: 0.06; Range: < 0.10; Units: NG/ML; Status: F Test Note: ; DIAGNOSIS CRITERIA MMB ng/ml Relative Index (RI) NON-AMI < or = 5 N/A [place]AY ZONE > 5 < or = 4 AMI > 5 > 4 Radiology Order: portable chest Test: portable chest REASON FOR EXAMINATION: Chest Pain; Clinical: Chest pain.; ; Technique: 09/19/2016.; ; Findings:; Evaluation is limited by portable technique. Mediastinum and cardiac silhouette; are stable. Lung santamaria demonstrate chronic-appearing pleural parenchymal; changes and superimposed basilar atelectasis cannot be excluded. Effusion cannot; be excluded. No pneumothorax.; ; Impression:; Cannot exclude superimposed bibasilar atelectasis and possible pleural effusion.; ; ; Signed by; Fernando Menjivar MD 10/09/2016 07:47 P; Radiology Order: EKG-ADULT Test: EKG-ADULT REASON FOR EXAMINATION: Chest Pain; Stationary ECG Study; [facility] ED; ; Test Date: 2016-10-09; Pat Name: SARAH WEIR Department:; Room: -; Gender: F Desktop Publisher: mercedez; : 1935 Requested By: ALKA Lawler; Order Number: [id number] Reading MD: Grace Chaidez; Measurements; Intervals [place]; Rate: 75 P: -18; MS: 119 QRS: 16; QRSD: 102 T: 4; QT: 416; QTc: 466; Interpretive Statements; SINUS RHYTHM WITH SHORT MS INTERVAL WITH OCCASIONAL VENTRICULAR PREMATURE; COMPLEXES; MODERATE VOLTAGE CRITERIA FOR LVH, CONSIDER NORMAL VARIANT; NONSPECIFIC ST T-WAVE ABNORMALITY; SIMILAR 04/17/15; Electronically Signed On 10-10-2016 8:11:56 EST by Grace Chaidez; Radiology Order: ECG WITH READING ER PHYS Test: ECG WITH READING ER PHYS REASON FOR EXAMINATION: NAUSEA; Stationary ECG Study; [facility] ED; ; Test Date: 2016-10-09; Pat Name: SARAH WEIR Department:; Room: -; Gender: F Desktop Publisher: [email or web address]; : 1935 Requested By: ANASTAICO TORRES; Order Number: [id number] Reading MD: Grace Chaidez; Measurements; Intervals [place]; Rate: 77 P: 51; MS: 164 QRS: 21; QRSD: 95 T: 21; QT: 400; QTc: 453; Interpretive Statements; SINUS RHYTHM; MODERATE VOLTAGE CRITERIA FOR LVH, CONSIDER NORMAL VARIANT; NONSPECIFIC ST T-WAVE ABNORMALITY; SIMILAR 10/09/16; Electronically Signed On 10-10-2016 8:13:52 EST by Grace Chaidez; Outcome: 22:40 Discharge ordered by Provider. ke 23:07 Discharge Assessment: Patient awake, alert and oriented x 3. No cognitive and/or cf2 functional deficits noted. Patient verbalized understanding of disposition instructions. Patient awake and alert. patient administered narcotics - yes. Pt provided with safe discharge. The following High Risk Discharge criteria are identified: None. Discharged to home ambulatory, with family. Condition: good Condition: stable Condition: improved. No special radiology studies were completed. Property :Personal belongings accompany Pt. 23:09 Patient left the ED. cf2 23:21 Patient left the ED. ke Signatures: Dispatcher [employer] EDMS Qi Garland, Reg Reg gb Anastacio Mccullough, REPAIRER RESISTANCE WELDING MACHINES REPAIRER RESISTANCE WELDING MACHINES Wallace Carter Daniell, GORING CUTTER GORING CUTTER dd6 Jacquelyn Harding, GORING CUTTER GORING CUTTER chalo Shahla Lopez,RN RN js13 Nery Trevino RN RN ms18 Robbie, Darell Ramirez,RN RN jf3 Carlene Nicholson,RN RN cf2 Chart Complete MTDD
[2016-10-13] MEDS ORDERED: ATOR1TAB19 PO (14:00)
[2016-10-13] MEDS ORDERED: MULT1TAB18 PO (14:00)
[2016-10-13] MEDS ORDERED: PRIL20CA PO (14:00)
[2016-10-13] MEDS ORDERED: LISI10TA4 PO (14:00)
[2016-10-13] MEDS ORDERED: LEXA5TAB13 PO (14:00)
[2016-10-13] MEDS ORDERED: SODI325T9 PO (14:00)
== END 2016-10-09 23:21 | disposition home or self-care (01) ==
LOC: M ED 17:56
DX: B02.8 Zoster with other complications (principal); G50.1 Atypical facial pain; I25.10 Atherosclerotic heart disease of native coronary artery without angina pectoris; J98.4 Other disorders of lung; C50.912 Malignant neoplasm of unspecified site of left female breast; E11.22 Type 2 diabetes mellitus with diabetic chronic kidney disease; K21.9 Gastro-esophageal reflux disease without esophagitis; E78.00 Pure hypercholesterolemia, unspecified; I12.9 Hypertensive chronic kidney disease with stage 1 through stage 4 chronic kidney disease, or unspecified chronic kidney disease; E03.9 Hypothyroidism, unspecified; N18.9 Chronic kidney disease, unspecified; Z87.442 Personal history of urinary calculi; Z95.1 Presence of aortocoronary bypass graft; Z90.49 Acquired absence of other specified parts of digestive tract; Z90.79 Acquired absence of other genital organ(s); Z90.5 Acquired absence of kidney; Z79.891 Long term (current) use of opiate analgesic; Z79.82 Long term (current) use of aspirin; Z79.899 Other long term (current) drug therapy; Z88.1 Allergy status to other antibiotic agents; Z88.8 Allergy status to other drugs, medicaments and biological substances
CPT/HCPCS: 71010; 71020; 80053; 82550; 82553; 83880; 84484; 85025; 93005; 93041; 96374; 96375; 99285; J2405

== ENCOUNTER → 2016-10-09 | Outpatient (CLI) | payer MEDICARE ==
--- NOTE | 2016-10-09 12:45 | REP ---
Clinical: Preoperative assessment. Technique: PA and lateral. Comparison: 09/19/2016. Findings: Mediastinum and cardiac silhouette stable. Evidence for prior sternotomy and CABG noted. Lung santamaria demonstrate bilateral chronic-appearing pleural parenchymal changes similar to prior examination. No obvious acute consolidation, effusion or pneumothorax. Skeletal structures demonstrate age-related degenerative changes. Impression: Chronic bilateral pleuroparenchymal changes. No obvious acute process. Signed by Fernando Menjivar MD 10/09/2016 12:37 P
[2016-10-09 19:32] LABS: MEAN CORPUSCULAR HGB CONC 33.3 g/dl (32.0-36.5); MEAN CORPUSCULAR VOLUME 90.1 fl (80.0-96.0); RED CELL DISTRIBUTION WIDTH 15.2 % (11.5-14.5); WHITE BLOOD COUNT 7.2 K/mm3 (4.0-10.0)
[2016-10-09 19:54] LABS: ALBUMIN 3.1 GM/DL (3.2-5.2); ALBUMIN/GLOBULIN RATIO 1.07 (1.00-1.93); BILIRUBIN,TOTAL 0.3 MG/DL (0.2-1.0); CALCIUM LEVEL 8.2 MG/DL (8.8-10.2); CREATININE FOR GFR 1.09 MG/DL (0.55-1.02); GLOMERULAR FILTRATION RATE 51.2 (>32); POTASSIUM SERUM 3.7 MEQ/L (3.5-5.1)
== END ==
LOC: M ADAMS 11:00
PROVIDERS: ATTEND Family Medicine

== ENCOUNTER 2016-10-14 08:08 | Inpatient (IN) | payer MEDICARE ==
[~2016-10-14] VITALS: Ht 154.9 cm; Wt 92.5 kg
[~2016-10-14 08:08] MED LIST changes: +ATOR1TAB19 PO; +LEXA5TAB13 PO; +MULT1TAB18 PO; +PRIL20CA PO; +SODI325T9 PO
[2016-10-14] MEDS ORDERED: LISINOPRIL 10 MG TAB PO SCH (09:00)
--- NOTE | 2016-10-14 10:14 | REP ---
CT abdomen and pelvis without IV or oral contrast: History: Lower abdominal pain. Comparison CT study is from May 09, 2015. Findings: Digital employee welfare manager radiograph shows an unremarkable bowel gas pattern. There is a small right pleural effusion noted. Some discoid atelectasis is seen in the right base. Mitral annular calcification is noted in the enlarged heart. There is a hiatal hernia. There are granulomatous calcifications in the spleen. An accessory splenule is noted. No focal hepatic lesion is seen. The right kidney is surgically absent. There is no evidence of hydronephrosis in the left kidney. There is however a large left renal calculus at mid pole position measuring 11 mm. No ureteral stone is seen. There is left colonic diverticulosis without CT evidence of diverticulitis. The patient is status post hysterectomy. Urinary bladder is unremarkable. There is postoperative fibrosis in the anterior abdominal wall centrally. There is evidence of prior ventral hernia repair. No pancreatic abnormality is seen. No adrenal lesion is observed on either side. There are clips in the gallbladder fossa post cholecystectomy. Impression: Postoperative changes including cholecystectomy, hysterectomy, right nephrectomy, ventral hernia repair. Right pleural effusion. Hiatal hernia. Intrarenal nephrolithiasis left kidney with an 11 mm stone. No hydronephrosis. Signed by Tim Montelongo MD 10/14/2016 02:05 P
[2016-10-14 10:23] LABS: MEAN CORPUSCULAR HGB CONC 32.2 g/dl (32.0-36.5); MEAN CORPUSCULAR VOLUME 93.1 fl (80.0-96.0); PLATELET COUNT, AUTOMATED 428 k/mm3 (150-450); RED CELL DISTRIBUTION WIDTH 14.7 % (11.5-14.5); WHITE BLOOD COUNT 17.4 K/mm3 (4.0-10.0)
[2016-10-14 10:26] LABS: ALBUMIN 3.1 GM/DL (3.2-5.2); ALBUMIN/GLOBULIN RATIO 0.89 (1.00-1.93); BILIRUBIN,DIRECT 0.2 MG/DL (0.0-0.2); BILIRUBIN,TOTAL 0.5 MG/DL (0.2-1.0); CALCIUM LEVEL 8.7 MG/DL (8.8-10.2); CREATININE FOR GFR 1.48 MG/DL (0.55-1.02); GLOMERULAR FILTRATION RATE 35.9 (>32); MAGNESIUM LEVEL 1.8 MG/DL (1.8-2.4); POTASSIUM SERUM 3.7 MEQ/L (3.5-5.1); TOTAL PROTEIN 6.6 GM/DL (6.4-8.2)
--- NOTE | 2016-10-14 10:27 | REP ---
Head CT without contrast: History: Syncope. Findings: Digital lateral gray tender radiograph is unremarkable. Bone window settings demonstrate an intact bony calvarium. Vascular calcification is noted. The visualized paranasal sinuses are clear. No intraorbital abnormality is appreciated. There is diffuse cerebral atrophy. Concordant ventricular enlargement is seen. There is no evidence of intracranial hemorrhage. No mass, infarct, extra-axial fluid collection or midline shift is seen. Impression: Diffuse atrophy and vascular calcification. No acute intracranial abnormality. Signed by Tim Montelongo MD 10/14/2016 02:05 P
--- NOTE | 2016-10-14 10:28 | REP ---
Portable chest x-ray: Sitting AP view. History: Syncope. Findings: Right hemidiaphragm remains slightly elevated and there is some stable pleural thickening along the right lower lateral chest wall. Fissural thickening is seen in the minor fissure. Mild cardiomegaly is observed prior sternotomy wires are seen. Pulmonary vasculature is not increased. No new infiltrate seen. Impression: Mild cardiomegaly. Elevated right hemidiaphragm with some pleural thickening or fluid. Findings unchanged from 11/09/2016. Signed by Tim Montelongo MD 10/14/2016 02:05 P
[2016-10-14 10:31] LABS: FREE T4 1.52 NG/DL (0.76-1.46)
[2016-10-14 10:32] LABS: EOSINOPHILS 1 % (0-5)
[2016-10-14] MEDS ORDERED: VITMTA PO (11:24)
[2016-10-14] MEDS ORDERED: METO50TA2 PO (11:24)
[2016-10-14] MEDS ORDERED: ASPI325T PO (11:24)
[2016-10-14] MEDS ORDERED: ONDA4TAB6 PO (11:25)
[2016-10-14] MEDS ORDERED: ACYC800T PO (11:25)
[2016-10-14] MEDS ORDERED: NORC5TAB PO (11:25)
[2016-10-14] MEDS ORDERED: SODI325T9 PO (11:25)
[2016-10-14] MEDS ORDERED: POTA4.25 PO (11:25)
[2016-10-14] MEDS ORDERED: VANCOMYCIN 1000 MG/20 ML VIAL (J3370) As Ordered ONE (11:47)
[2016-10-14] MEDS ORDERED: ACETAMINOPHEN TAB 650MG DOSE (2X325MG) PO PRN (12:00)
[2016-10-14] MEDS ORDERED: GLUCAGON FOR INJ 1 MG VIAL (J1610) SC PRN (12:15)
[2016-10-14] MEDS ORDERED: DEXTROSE 50% 50 ML SYRINGE IV PRN (12:15)
[2016-10-14] MEDS ORDERED: GLUCOSE 4 GM CHEW TABLET PO PRN (12:15)
[2016-10-14] MEDS ORDERED: MEROPENEM 1 GM VIAL (J2185) As Ordered ONE (13:52)
--- NOTE | 2016-10-14 13:59 | HPE ---
DATE OF ADMISSION: 10/14/2016 PRIMARY CARE PROVIDER: Frank Lorenz MD FIREAR[employer] ASSEMBLY SUPERVISOR: Gilbert Minaya MD DESK ASSISTANT: Colin Benites MD REASON FOR ADMISSION: Syncopal episode, constipation. HISTORY OF PRESENT ILLNESS: The patient is an 81-year-old female, past medical history significant for coronary artery disease status post coronary artery bypass graft (CABG), recently diagnosed left breast cancer, non-insulin dependent diabetes, hypertension, hyperlipidemia, chronic kidney disease status post right nephrectomy, presented to the emergency room complaining of a syncopal episode earlier today. Stated she has been constipated since last Sunday. The patient was recently diagnosed with shingles in the emergency room and was started on antivirals, as well as narcotics for her pain, which caused her to become constipated. This morning, the patient stated she was sitting on the toilet straining after she was given an enema by her when she had a syncopal episode. was at bedside. He stated that she passed out. Denies any fall or hitting her head. She presented to the emergency room. She was found to be hypotensive with a systolic blood pressure of 91/53, pulse 93, respiratory rate 18, temperature 97.4, pulse oximetry 96% on room air. She started on intravenous (IV) fluids. Blood work was done. She was found to have a lactic acidosis of 3.9. She underwent a CT of the abdomen without contrast in the emergency room, which showed postoperative changes, right pleural effusion, and intrarenal nephrolithiasis left kidney with an 11 mm stone. No hydronephrosis. The patient also underwent a CT of her head, which just showed diffuse atrophy and vascular calcification but no acute abnormalities. The patient also had positive troponin of 0.11. Hospitalist was called for the admission. The patient was admitted. She denied any chest pain, nausea, or vomiting but stated she has been having cramping abdominal pain. She stated she had a couple bowel movements since arrival to the emergency room. No fevers or chills at this time. PAST MEDICAL HISTORY: Significant for left breast cancer, non-insulin dependent diabetes, gastroesophageal reflux disease (GERD), hypertension, hyperlipidemia, depression, recently diagnosed with shingles. PAST SURGICAL HISTORY: Significant for a CABG in July, right kidney removal, cholecystectomy, hernia repair, hysterectomy, bilateral cataract surgery. SOCIAL HISTORY: Denies tobacco or alcohol use. Lives at home with her . FAMILY HISTORY: Noncontributory. ALLERGIES: CIPROFLOXACIN, reaction rash. HOME MEDICATIONS: Include: - [place] one tablet by mouth every 4 hours as needed pain - acyclovir 800 mg by mouth five times a day - aspirin 325 mg by mouth daily - atorvastatin 10 mg at bedtime - Lexapro 5 mg by mouth daily - glimepiride 2 mg by mouth three times a day - levothyroxine 112 mcg by mouth daily - lisinopril 10 mg by mouth daily - magnesium 400 mg by mouth twice a day - metoprolol 50 mg by mouth twice a day - multivitamin one tablet by mouth daily - omeprazole 20 mg by mouth daily - Zofran 4 mg by mouth three times a day as needed nausea - sodium bicarbonate 325 mg by mouth daily - potassium citrate extended-release 50 mEq by mouth daily PHYSICAL FINDINGS: Vital signs on admission: Blood pressure 91/53, pulse 93, respiratory rate 18, temperature 97.4, pulse oximetry 96% on room air. HEENT: Pupils equal round and reactive to light and accommodation. Neck: Supple. No jugular venous distention (JVD). Lungs: Clear to auscultation bilaterally. Abdomen: Soft, nontender, hypoactive bowel sounds, nondistended. Extremities: Trace edema bilaterally. Skin: The patient has evidence of shingles at the back of her head and her chin. LABORATORY FINDINGS: WBC 17.4, hemoglobin 14.9, hematocrit 46.3, platelets 428. Sodium 135, potassium 3.7, chloride 95, BUN 15, creatinine 1.48, lactic acid 3.9, magnesium 1.8, troponin 0.11, TSH 12.7, T4 is 1.5. Urinalysis: Appearance cloudy, protein 2, glucose 1, nitrate negative, leukocyte esterase 3, bacteria is negative, WBC iss too many to count. IMAGING: As described above. The patient also had a chest x-ray, which showed mild cardiomegaly, elevated right hemidiaphragm with some pleural thickening. ASSESSMENT AND PLAN: 1. Syncope. We will admit the patient to the telemetry room. Monitor her on cardiac monitoring. Will order orthostatic blood pressures every 4 hours. The patient likely had a vasovagal episode while trying to have a bowel movement earlier today. She received 2 liters of normal saline in the emergency room. 2. Elevated troponin. We will consult Dr. Bates. The patient normally follows up with Dr. Benites. She had a recent CABG. We will continue the patient's beta cher and aspirin and statin at this time. 3. Sepsis likely secondary to urinary tract infection (UTI) versus other. Will continue Merrem at this time. She received a dose of vancomycin and Merrem in the emergency room. Will repeat lactic acid in 4 hours. Will continue to monitor WBCs. The patient is currently afebrile. Received 2 liters of IV fluids in the emergency room. 4. Abnormal urinalysis (UA). Continue her antibiotics. Await urine culture and sensitivity. 5. Constipation. Appears to be resolving. It was likely secondary to narcotic use. We will continue the patient on a daily Colace. 6. Shingles. Continue the patient's acyclovir. 7. Acute on chronic kidney disease. Unknown baseline at this time. Will consult Dr. Coelho. 8. History of coronary artery disease. The patient denied any chest pain at this time but did have a mildly positive troponin. Continue to monitor on telemetry. Order daily electrocardiograms (EKGs). Cardiology consulted. 9. History of breast cancer. The patient was to have surgery. However, she had a cardiac event in July, so surgery was postponed. She is to have an appointment with Dr. Castillo next Sunday. 10. History of hypothyroidism. Continue the patient's home medication. 11. History of depression. Continue the patient's home medication. 12. The patient has a history of kidney stones and urinary tract infection. Urine cultures are currently pending. 13. Deep venous thrombosis (DVT) prophylaxis. Continue Lovenox subcutaneously.
[2016-10-14] MEDS ORDERED: HumaLOG INSULIN (NovoLOG) PER UNIT As Ordered ONE (15:09)
--- NOTE | 2016-10-14 15:47 | EDDOCDS ---
Physician Documentation [facility] Name: Valeria Weir Age: 81 yrs Sex: Female : 1935 Arrival Date: 10/14/2016 Time: 08:08 Bed Admit Hold Private MD: Frank Lorenz A. Disposition: 10/14 12:03 Critical Care:. ml Disposition: 10/14/16 11:07 Hospitalization ordered by Nasim Seo for Inpatient Admission. Preliminary diagnosis are Vomiting - elevated lactic acid; elevated troponin, Generalized abdominal pain, Cystitis, Sepsis, unspecified organism. - Bed requested for PCU. - Status is Inpatient Admission. [facility] - Condition is Stable. - Problem is new. - Symptoms are unchanged. Historical: - Allergies: cefadroxil; Ciprofloxacin; SUCCINYLCHOLINE; - Home Meds: 1. acyclovir 800 mg Oral tab 1 tab 5 times per day started 10/08/16 2. aspirin 325 mg Oral tab 1 tab once daily 3. atorvastatin 10 mg oral tab 1 tab once daily 4. escitalopram oxalate 5 mg oral tab 1 tab once daily 5. glimepiride 2 mg Oral tab 1 tab three times a day 6. levothyroxine 112 mcg Oral tab 1 tab once daily 7. lisinopril 10 mg Oral tab 1 tab once daily 8. magnesium oxide 400 mg Oral tab daily 9. metoprolol succinate oral 10. metoprolol tartrate 50 mg Oral tab 1 tab 2 times per day 11. [place] 5-325 mg Oral tab 1 tab every 4-6 hours 12. omeprazole 20 mg Oral cpDR 1 cap once daily 13. 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 No barriers to communication noted, The patient speaks fluent Amharic. - Family history: Not pertinent. - : The pt / caregiver states he / she is not on anticoagulants. Home medication list is obtained from the patient, family members. - Exposure Risk Screening:: Recent exposure to shingles, Patient has shingles outbreak now. Vital Signs: 08:19 Weight 88.9 kg / 195.99 lbs; Height 5 ft. 1 in. (154.94 cm); 13 08:19 BP 91 / 53; Pulse 93; Resp 18; Temp 97.4(TE); Pulse Ox 96% ; Weight 132 kg / 291.01 lbs ct3 (M); Height 5 ft. 1 in. (154.94 cm) (R); Pain 3/10; 08:34 BP 91 / 55 (auto/); js13 08:34 Pulse 90 MON; Resp 16; Pulse Ox 95% on R/A; 13 08:47 BP 95 / 52 (auto/); 13 08:47 Pulse 82 MON; Resp 16; Pulse Ox 95% on R/A; 13 09:02 BP 106 / 52 (auto/); 13 09:02 Pulse 82 MON; Resp 16; Pulse Ox 97% on R/A; 13 09:32 BP 104 / 42 (auto/); 13 09:32 Pulse 86 MON; Resp 16; Pulse Ox 98% on R/A; 13 10:02 BP 159 / 66 (auto/); 13 10:02 Pulse 88 MON; Resp 16; Pulse Ox 98% on R/A; 13 10:17 BP 186 / 74 (auto/); 13 10:17 Pulse 84; Resp 16; Pulse Ox 97% ; 13 12:21 BP 168 / 84 RA Supine (man/reg); mb9 12:43 Pulse 100 MON; Pulse Ox 95% ; mb9 13:01 Pulse 98 MON; Pulse Ox 94% ; mb9 13:27 Pulse 106 MON; Pulse Ox 95% ; mb9 13:34 Pulse 100 MON; Pulse Ox 94% ; mb9 13:46 Pulse 102 MON; Pulse Ox 95% ; mb9 13:53 Pulse 98 MON; Pulse Ox 94% ; mb9 14:04 BP 136 / 62 RA Supine (man/reg); Pulse 102 MON; Pulse Ox 95% ; mb9 14:12 Pulse 102 MON; Pulse Ox 96% ; mb9 14:26 BP 136 / 64; Pulse 100 MON; Resp 18; Temp 97.3(TE); Pulse Ox 95% ; Pain 0/10; mb9 08:19 Body Mass Index 37.03 (88.90 kg, 154.94 cm) [facility] MDM: 08:35 NS 0.9% 1000 ml IV at bolus once ordered. js13 08:42 [facility] Payment Agreement was scanned into [employer] and attached to record. [id number] 09:00 Financial registration complete. [id number] 09:09 IV Saline Lock ordered. ml 09:10 CBC with Diff Ordered. EDMS 09:10 MED Profile Ordered. EDMS 09:10 Liver Profile Ordered. EDMS 09:10 Amylase Ordered. EDMS 09:10 Lipase Ordered. EDMS 09:10 CIP Ordered. EDMS 09:10 Troponin Ordered. EDMS 09:10 TSH with Free T4 Ordered. EDMS 09:11 Chest, 1 View Ordered. EDMS 09:11 ECG WITH READING ER PHYS+CARDIAG ordered. EDMS 09:11 Lactic Acid (Delgado tube on ice) Ordered. EDMS 09:11 Straight cath ordered. ml 09:12 UA Ordered. EDMS 09:12 Urine Culture Ordered. EDMS 09:12 CT ABD & PELVIS: No Contrast Ordered. EDMS 09:13 Dot Etcher/Pulse Ox/q 15 min VS ordered. ml 09:13 Rhythm Strip to chart ordered. ml 09:14 CT Head Without Contrast Ordered. EDMS 09:33 NS 0.9% 1000 ml IV at bolus once ordered. ml 10:04 MAGNESIUM LEVEL Ordered. EDMS 10:06 BED REQUEST+ADM ordered. EDMS 10:24 DIFFERENTIAL NO CHARGE Ordered. EDMS 10:24 PLATELET ESTIMATE Ordered. EDMS 10:37 CBC with Diff Reviewed. ml 10:37 MED Profile Reviewed. ml 10:37 Liver Profile Reviewed. ml 10:37 Troponin Reviewed. ml 10:37 TSH with Free T4 Reviewed. ml 10:37 Lactic Acid (Delgado tube on ice) Reviewed. ml 10:37 Amylase Reviewed. ml 10:37 Lipase Reviewed. ml 10:37 CIP Reviewed. ml 10:37 MAGNESIUM LEVEL Reviewed. ml 10:37 PLATELET ESTIMATE Reviewed. ml 10:37 CT ABD & PELVIS: No Contrast Reviewed. ml 10:53 NS 0.9% 1000 ml IV at bolus once ordered. js13 11:04 vancomycin (loading dose for pt. wt. >= 80kg) 2000 mg IVPB once ordered. ml 11:04 Merrem 1 grams IV at bolus once ordered. ml 11:09 -Blood Culture (Adults Only), peripheral from different site, or from device/port/PICC ml etc. if present ordered. 11:10 -Blood Culture Ordered. EDMS 11:13 -Blood Culture (Adults Only), peripheral from different site, or from device/port/PICC ar3 etc. if present complete. 11:14 BLOOD CULTURES Ordered. EDMS 11:51 NO ADDED SALT DIET ordered. EDMS 11:51 CARDIAC INJURY PROFILE Ordered. EDMS 11:52 CARDIAC INJURY PROFILE Ordered. EDMS 11:52 TROPONIN Ordered. EDMS 11:52 TROPONIN Ordered. EDMS 11:53 Admission / Observation Status ordered. EDMS 12:16 ELECTROCARDIOGRAM ADULT ordered. EDMS 12:16 ELECTROCARDIOGRAM ADULT ordered. EDMS 12:16 ELECTROCARDIOGRAM ADULT ordered. EDMS 12:23 LACTIC ACID LEVEL, LACTATE Ordered. EDMS 15:02 NovoLOG 6 units Sub-Q once; administer within 5-10 min before a meal/food and no later mb9 than at the start of the meal/snack ordered. Point of Care Testing: Blood Glucose: 13:21 Blood Glucose: 321 mg/dL; mb9 Ranges: Administered Medications: 08:35 Drug: NS 0.9% 1000 ml [sodium chloride 0.9 % intravenous solution] Route: IV; Rate: js13 bolus; Site: left antecubital; 10:53 Follow up: IV Status: Completed infusion; IV Intake: 1000ml js13 10:01 Drug: NS 0.9% 1000 ml [sodium chloride 0.9 % intravenous solution] Route: IV; Rate: js13 bolus; Site: left antecubital; 12:00 Follow up: IV Intake: 1000ml mb9 10:53 Drug: NS 0.9% 1000 ml [sodium chloride 0.9 % intravenous solution] Route: IV; Rate: js13 bolus; Site: left antecubital; 14:10 Follow up: IV Intake: 1000ml mb9 12:00 Drug: vancomycin (loading dose for pt. wt. >= 80kg) 2000 mg [vancomycin 1,000 mg mb9 intravenous injection] {Note: Dose split into 2 250ml bags. 1st running at this time. .} Route: IVPB; Site: left antecubital; 14:10 Follow up: IV Intake: 500ml mb9 14:20 Drug: Merrem 1 grams Route: IV; Rate: bolus; Site: left antecubital; mb9 15:21 Drug: NovoLOG 6 units Route: Sub-Q; Site: right upper arm; mb9 Critical Care Time: 12:03 Critical care time: Bedside Care: 120 minutes, Consultation: 20 minutes. Total time: ml 140 minutes Signatures: Dispatcher [employer] EDMS Cornell Michel MD MD Cierra Avila RN RN kpj Sayra Boland, CHRISTOPHER STOCK TRADER ar3 Shahla LopezRN RN [id number] Adin HooksRN RN mb9 Betzaida Oreilly [id number] The chart was reviewed and I authenticate all verbal orders and agree with the evaluation and treatment provided.Corrections: (The following items were deleted from the chart) 10:03 09:11 MAGNESIUM LEVEL+LAB ordered. EDMS EDMS Attachments: 08:42 [facility] Payment Agreement [id number] [id number]
--- NOTE | 2016-10-14 15:48 | EDDOCDS ---
Nurse's Notes [facility] Name: Valeria Weir Age: 81 yrs Sex: Female : 1935 Arrival Date: 10/14/2016 Time: 08:08 Bed Admit Hold Private MD: Frank Lorenz A. Diagnosis: Vomiting-elevated lactic acid; elevated troponin;Generalized abdominal pain;Cystitis;Sepsis, unspecified organism Presentation: 10/14 08:13 Presenting complaint: EMS states: Patient woke up this morning and family states she is js13 "dying" and near passing out. Patient A&O X3. Patient took laxative last night and had a large BM in ambulance. Suicide/Homicide risk assessment- the patient denies having any suicidal and/or homicidal ideations and does not present with any other emotional, behavioral or mental health complaints. Status: Patient is not a caseworker protective services or dependent. Transition of care: patient was not received from another setting of care. Care prior to arrival: See EMS report. Saline lock initiated. Glucose check. 300. 08:13 Acuity: TERAR Level 3 js13 08:13 Method Of Arrival: Ambulance 13 Triage Assessment: 08:19 General: Appears in no apparent distress, Behavior is appropriate for age, cooperative. js13 Pain: Denies pain. Neurological: Level of Consciousness is awake, alert, obeys commands. Cardiovascular: Chest pain is denied. Respiratory: Airway is patent Respiratory effort is even, unlabored, Respiratory pattern is regular, symmetrical, Breath sounds are clear. Derm: Skin is pink, warm & dry. Rash noted that is red, on head, face and neck. Historical: - Allergies: cefadroxil; Ciprofloxacin; SUCCINYLCHOLINE; - Home Meds: 1. acyclovir 800 mg Oral tab 1 tab 5 times per day started 10/08/16 2. aspirin 325 mg Oral tab 1 tab once daily 3. atorvastatin 10 mg oral tab 1 tab once daily 4. escitalopram oxalate 5 mg oral tab 1 tab once daily 5. glimepiride 2 mg Oral tab 1 tab three times a day 6. levothyroxine 112 mcg Oral tab 1 tab once daily 7. lisinopril 10 mg Oral tab 1 tab once daily 8. magnesium oxide 400 mg Oral tab daily 9. metoprolol succinate oral 10. metoprolol tartrate 50 mg Oral tab 1 tab 2 times per day 11. [place] 5-325 mg Oral tab 1 tab every 4-6 hours 12. omeprazole 20 mg Oral cpDR 1 cap once daily 13. 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 No barriers to communication noted, The patient speaks fluent Macedonian. - Family history: Not pertinent. - : The pt / caregiver states he / she is not on anticoagulants. Home medication list is obtained from the patient, family members. - Exposure Risk Screening:: Recent exposure to shingles, Patient has shingles outbreak now. Screenin:22 Screening information is obtained from the patient. Fall risk: At risk due to age. js13 Assistance ADL's: requires no assistance with activities of daily living. Abuse/DV Screen: The patient / caregiver reports he/she is: not in a situation that causes fear, pain or injury. Nutritional screening: No deficits noted. Advance Directives: There is no active DNR order. home support is adequate. Assessment: 08:22 General: Appears in no apparent distress, comfortable, Behavior is appropriate for age, js13 cooperative. Pain: Denies pain. Neurological: Level of Consciousness is awake, alert, obeys commands. Cardiovascular: Rhythm is regular Chest pain is denied. Respiratory: Airway is patent Respiratory effort is even, unlabored, Respiratory pattern is regular, symmetrical, Breath sounds are clear. Derm: Skin is pink, warm & dry. Rash noted that is red, on neck and face and head. 09:30 General: Appears in no apparent distress, comfortable, Behavior is appropriate for age, js13 cooperative. Pain: Denies pain. Neurological: Level of Consciousness is awake, alert, obeys commands. Cardiovascular: Rhythm is regular Chest pain is denied. Respiratory: Airway is patent Respiratory effort is even, unlabored, Respiratory pattern is regular, symmetrical. Derm: Skin is pink, warm & dry. 10:29 Adult Sepsis Screening: The patient does not have new or worsening altered mentation. js13 Patient's respiratory rate is less than 22. Systolic blood pressure is greater than 100. Patient has a qSOFA score of 0- Negative Sepsis Screen. General: Appears in no apparent distress, comfortable, Behavior is appropriate for age, cooperative. Pain: Denies pain. Cardiovascular: Rhythm is regular Chest pain is denied. Respiratory: Airway is patent Respiratory effort is even, unlabored, Respiratory pattern is regular, symmetrical. Derm: Skin is pink, warm & dry. 12:04 General: Appears uncomfortable, Behavior is fussy. General: pt complains of urinary mb9 incontinence. pt requesting to have a shankar catheter inserted at this time. Dr Seo contacted by this RN. New order received to insert shankar catheter. . Neurological: Level of Consciousness is awake, alert. Cardiovascular: Rhythm is regular. Respiratory: Airway is patent Respiratory effort is even, unlabored. : Reports incontinence. 13:10 Reassessment: Patient appears in no apparent distress at this time. Adult Sepsis mb9 Screening: The patient does not have new or worsening altered mentation. Patient's respiratory rate is less than 22. Systolic blood pressure is greater than 100. Patient has a qSOFA score of 0- Negative Sepsis Screen. General: Appears comfortable, Behavior is fussy. Pain: Denies pain. Neurological: Level of Consciousness is awake, alert. Respiratory: Airway is patent Respiratory effort is even, unlabored. : Shankar in place to gravity drainage. 13:28 General: pt refusing to have NIBP cuff in place. pt wants her bp checked manual mb9 stating, "the machine is always higher, they always have to do it with a manual cuff and its killing my arm". cuff removed. . 13:43 General: Dr Seo made aware of pt's elevated bp and that nothing was ordered until 9pm mb9 tonight. Dr Seo asked that we check with Dr Bates in regards to ordering her metoprolol now at this time". . 14:05 General: Dr Bates in to see pt at this time. . mb9 14:22 General: Dr Bates made aware of pt's request for her Lopressor now. Dr Bates states, mb9 "I don't think she needs an additional dose of her Lopressor". . 15:02 General: This RN spoke with Dr Seo regarding pt's fsbs of 321 and that according to mb9 the sliding scale she would receive 6 units of insulin SQ. Dr Seo also made aware that the pt was refusing her lunch because she didn't feel up to eating. New order received for Novolog 6 units SQ x1 now. . 15:21 Reassessment: Patient appears in no apparent distress at this time. Adult Sepsis mb9 Screening: The patient does not have new or worsening altered mentation. Patient's respiratory rate is less than 22. Systolic blood pressure is greater than 100. Patient has a qSOFA score of 0- Negative Sepsis Screen. General: Appears in no apparent distress, comfortable, Behavior is appropriate for age, cooperative. Pain: Denies pain. Neurological: Level of Consciousness is awake, alert. Respiratory: Airway is patent Respiratory effort is even, unlabored. Vital Signs: 08:19 Weight 88.9 kg; Height 5 ft. 1 in. (154.94 cm); js13 08:19 BP 91 / 53; Pulse 93; Resp 18; Temp 97.4(TE); Pulse Ox 96% ; Weight 132 kg (M); Height ct3 5 ft. 1 in. (154.94 cm) (R); Pain 3/10; 08:34 BP 91 / 55 (auto/); js13 08:34 Pulse 90 MON; Resp 16; Pulse Ox 95% on R/A; js13 08:47 BP 95 / 52 (auto/); js13 08:47 Pulse 82 MON; Resp 16; Pulse Ox 95% on R/A; js13 09:02 BP 106 / 52 (auto/); js13 09:02 Pulse 82 MON; Resp 16; Pulse Ox 97% on R/A; js13 09:32 BP 104 / 42 (auto/); js13 09:32 Pulse 86 MON; Resp 16; Pulse Ox 98% on R/A; js13 10:02 BP 159 / 66 (auto/); js13 10:02 Pulse 88 MON; Resp 16; Pulse Ox 98% on R/A; js13 10:17 BP 186 / 74 (auto/); js13 10:17 Pulse 84; Resp 16; Pulse Ox 97% ; js13 12:21 BP 168 / 84 RA Supine (man/reg); mb9 12:43 Pulse 100 MON; Pulse Ox 95% ; mb9 13:01 Pulse 98 MON; Pulse Ox 94% ; mb9 13:27 Pulse 106 MON; Pulse Ox 95% ; mb9 13:34 Pulse 100 MON; Pulse Ox 94% ; mb9 13:46 Pulse 102 MON; Pulse Ox 95% ; mb9 13:53 Pulse 98 MON; Pulse Ox 94% ; mb9 14:04 BP 136 / 62 RA Supine (man/reg); Pulse 102 MON; Pulse Ox 95% ; mb9 14:12 Pulse 102 MON; Pulse Ox 96% ; mb9 14:26 BP 136 / 64; Pulse 100 MON; Resp 18; Temp 97.3(TE); Pulse Ox 95% ; Pain 0/10; mb9 08:19 Body Mass Index 37.03 (88.90 kg, 154.94 cm) js13 Vitals: 08:19 Log In Time N/A - ambulance arrival. js13 ED Course: 08:09 Patient visited by Sayra Boland PCA. ar3 08:09 Shahla Lopez,PATRICK is Primary Nurse. ar3 08:09 Frank Lorenz is Private Physician. ar3 08:09 Patient moved to Waiting ar3 08:09 Patient moved to 15 ar3 08:15 Triage Initiated js13 08:19 Accompanied by Family Member, Patient has correct armband on for positive ct3 identification. Placed in gown. Bed in low position. Call light in reach. Side rails up X2. Cleaned of incontinence. Linen changed. monitor technician on. Pulse ox on. NIBP on. 08:22 The patient / caregiver is instructed regarding the plan of care and ED course. Placed js13 in gown. Bed in low position. Call light in reach. Side rails up X2. monitor technician on. Pulse ox on. NIBP on. 08:22 Maintain field IV. Dressing intact. Good blood return noted. Site clean & dry. Gauge & js13 site: 18 gauge LAC. No procedures done that require assistance. 08:24 Patient visited by Shahla Lopez,PATRICK. js13 08:27 Patient visited by Chayito Hardy PCA. ct3 08:42 [facility] Payment Agreement was scanned into [employer] and attached to record. dm19 08:53 Cornell Michel MD is Attending Physician. ml 08:53 Patient visited by Cornell Michel MD. ml 09:26 EKG done. (by ED staff). Reviewed by Cornell Michel MD. dem1 09:27 Patient visited by Kati Hernandez. dem1 09:27 Assisted with bedpan. Repositioned patient. dem1 09:57 Patient visited by Chayito Hardy PCA. ct3 10:00 Lactic Acid (Delgado tube on ice) Sent. jo3 10:00 TSH with Free T4 Sent. jo3 10:00 CBC with Diff Sent. jo3 10:00 MED Profile Sent. jo3 10:00 Liver Profile Sent. jo3 10:00 Amylase Sent. jo3 10:00 CIP Sent. jo3 10:00 Troponin Sent. jo3 10:17 Assisted with bedpan. dem1 10:22 CT ABD & PELVIS: No Contrast Returned. EDMS 10:26 Urine Culture Sent. js13 10:26 UA Sent. js13 10:26 Quick cath inserted Specimen obtained. Returned cloudy urine. Patient tolerated well. js13 10:29 Patient visited by Shahla Lopez RN. js13 10:33 DIFFERENTIAL NO CHARGE Sent. js13 10:56 CT Head Without Contrast Returned. EDMS 10:56 Chest, 1 View Returned. EDMS 11:06 Nasim Seo is Hospitalizing Provider. ml 12:11 Patient visited by Kati Hernandez. dem1 12:11 Assisted with bedpan. dem1 13:11 Shankar cath inserted 18 Fr. Balloon inflated. To gravity drainage. mb9 14:09 Patient moved to Admit Hold kpj 14:30 CT ABD & PELVIS: No Contrast Returned. EDMS Administered Medications: 08:35 Drug: NS 0.9% 1000 ml [sodium chloride 0.9 % intravenous solution] Route: IV; Rate: js13 bolus; Site: left antecubital; 10:53 Follow up: IV Status: Completed infusion; IV Intake: 1000ml js13 10:01 Drug: NS 0.9% 1000 ml [sodium chloride 0.9 % intravenous solution] Route: IV; Rate: js13 bolus; Site: left antecubital; 12:00 Follow up: IV Intake: 1000ml mb9 10:53 Drug: NS 0.9% 1000 ml [sodium chloride 0.9 % intravenous solution] Route: IV; Rate: js13 bolus; Site: left antecubital; 14:10 Follow up: IV Intake: 1000ml mb9 12:00 Drug: vancomycin (loading dose for pt. wt. >= 80kg) 2000 mg [vancomycin 1,000 mg mb9 intravenous injection] {Note: Dose split into 2 250ml bags. 1st running at this time. .} Route: IVPB; Site: left antecubital; 14:10 Follow up: IV Intake: 500ml mb9 14:20 Drug: Merrem 1 grams Route: IV; Rate: bolus; Site: left antecubital; mb9 15:21 Drug: NovoLOG 6 units Route: Sub-Q; Site: right upper arm; mb9 Point of Care Testing: Blood Glucose: 13:21 Blood Glucose: 321 mg/dL; mb9 Ranges: Intake: 10:53 IV: 1000.00ml; Total: 1000.00ml. js13 12:00 IV: 1000.00ml; Total: 2000.00ml. mb9 14:10 IV: 1000.00ml; Total: 3000.00ml. mb9 14:10 IV: 500.00ml; Total: 3500.00ml. mb9 14:26 PO: 60.00ml; Total: 3560.00ml. mb9 Output: 14:26 Urine: 1200.00ml (Shankar); Total: 1200.00ml. mb9 Order Results: Lab Order: CBC with Diff; SPEC'M 10/14/16 09:57 Test: WHITE BLOOD COUNT; Value: 17.4; Range: 4.0-10.0; Abnormal: Above high normal; Units: K/mm3; Status: F Test: RED BLOOD COUNT; Value: 4.97; Range: 4.00-5.40; Units: M/mm3; Status: F Test: HEMOGLOBIN; Value: 14.9; Range: 12.0-16.0; Units: g/dl; Status: F Test: HEMATOCRIT; Value: 46.3; Range: 36.0-47.0; Units: %; Status: F Test: MEAN CORPUSCULAR VOLUME; Value: 93.1; Range: 80.0-96.0; Units: fl; Status: F Test: MEAN CORPUSCULAR HEMOGLOBIN; Value: 30.0; Range: 27.0-33.0; Units: pg; Status: F Test: MEAN CORPUSCULAR HGB CONC; Value: 32.2; Range: 32.0-36.5; Units: g/dl; Status: F Test: RED CELL DISTRIBUTION WIDTH; Value: 14.7; Range: 11.5-14.5; Abnormal: Above high normal; Units: %; Status: F Test: PLATELET COUNT, AUTOMATED; Value: 428; Range: 150-450; Units: k/mm3; Status: F Test: NEUTROPHILS; Value: 84; Range: 35-75; Abnormal: Above high normal; Units: %; Status: F Test: LYMPHOCYTES; Value: 7; Range: 16-52; Abnormal: Below low normal; Units: %; Status: F Test: MONOCYTES; Value: 5; Range: 0-8; Units: %; Status: F Test: EOSINOPHILS; Value: 1; Range: 0-5; Units: %; Status: F Test: ATYPICAL LYMPH; Value: 3; Range: 0-5; Units: %; Status: F Test: RBC MORPHOLOGY; Value: NORMAL; Status: F Lab Order: [facility] Profile; [facility] 10/14/16 09:57 Test: GLUCOSE, FASTING; Value: 302; Range: 83-110; Abnormal: Above high normal; Units: MG/DL; Status: F Test: BLOOD UREA NITROGEN; Value: 15; Range: 7-18; Units: MG/DL; Status: F Test: CREATININE FOR GFR; Value: 1.48; Range: 0.55-1.02; Abnormal: Above high normal; Units: MG/DL; Status: F Test: GLOMERULAR FILTRATION RATE; Value: 35.9; Range: >32; Status: F Test: SODIUM LEVEL; Value: 135; Range: 136-145; Abnormal: Below low normal; Units: MEQ/L; Status: F Test: POTASSIUM SERUM; Value: 3.7; Range: 3.5-5.1; Units: MEQ/L; Status: F Test: CHLORIDE LEVEL; Value: 95; Range: 98-107; Abnormal: Below low normal; Units: MEQ/L; Status: F Test: CARBON DIOXIDE LEVEL; Value: 25; Range: 21-32; Units: MEQ/L; Status: F Test: ANION GAP; Value: 15; Range: 8-16; Units: MEQ/L; Status: F Test: CALCIUM LEVEL; Value: 8.7; Range: 8.8-10.2; Abnormal: Below low normal; Units: MG/DL; Status: F Test Note: ; Units are mL/min/1.73 m2 Chronic Kidney Disease Staging per NKF: Stage I & II GFR >=60 Normal to Mildly Decreased Stage III GFR 30-59 Moderately Decreased Stage IV GFR 15-29 Severely Decreased Stage V GFR <15 Very Little GFR Left ESRD GFR <15 on [employer]CEIVER Lab Order: Liver Profile; 10/14/16:57 Test: AST/SGOT; Value: 13; Range: 15-37; Abnormal: Below low normal; Units: U/L; Status: F Test: ALT/SGPT; Value: 17; Range: 12-78; Units: U/L; Status: F Test: ALKALINE PHOSPHATASE; Value: 156; Range: 45-117; Abnormal: Above high normal; Units: U/L; Status: F Test: BILIRUBIN,TOTAL; Value: 0.5; Range: 0.2-1.0; Units: MG/DL; Status: F Test: BILIRUBIN,DIRECT; Value: 0.2; Range: 0.0-0.2; Units: MG/DL; Status: F Test: TOTAL PROTEIN; Value: 6.6; Range: 6.4-8.2; Units: GM/DL; Status: F Test: ALBUMIN; Value: 3.1; Range: 3.2-5.2; Abnormal: Below low normal; Units: GM/DL; Status: F Test: ALBUMIN/GLOBULIN RATIO; Value: 0.89; Range: 1.00-1.93; Abnormal: Below low normal; Status: F Lab Order: Amylase; 10/14/16: Test: AMYLASE; Value: 84; Range: 25-115; Units: U/L; Status: F Lab Order: Lipase; 10/14/16: Test: LIPASE; Value: 246; Range: 73-393; Units: U/L; Status: F Lab Order: CIP; 10/14/16:57 Test: CPK CREATINE PHOSPHOKINASE; Value: 53; Range: 26-192; Units: U/L; Status: F Test: CK-MB VALUE MASS; Value: 1.7; Range: 0.0-3.6; Units: NG/ML; Status: F Test: MB/CK RELATIVE INDEX; Value: 3.20; Range: < OR =4; Status: F Test Note: ; DIAGNOSIS CRITERIA MMB ng/ml Relative Index (RI) NON-AMI < or = 5 N/A DELGADO ZONE > 5 < or = 4 AMI > 5 > 4 Lab Order: Troponin; [facility] 10/14/16 09:57 Test: TROPONIN I; Value: 0.11; Range: < 0.10; Abnormal: Above high normal; Units: NG/ML; Status: F Test Note: ; Troponin I Reference Interval for [employer] LOCI: 99th Percentile= 0.00-0.045 ng/ml Risk Stratification: <= 0.10 ng/ml Decreased Risk for Adverse Clinical Events. 0.10-1.50 ng/ml Increased Risk for Adverse Clinical Events. Evaluation of additional criterion and/or repeat testing in 2-6 hours is suggested to rule out myocardial damage. >= 1.50 ng/ml Indicative of Myocardial Injury. Lab Order: TSH with Free T4; SPEC'M 10/14/16 09:57 Test: THYROID STIMULATING HORMONE; Value: 12.700; Range: 0.358-3.740; Abnormal: Above high normal; Units: uIU/ML; Status: F Test: FREE T4; Value: 1.52; Range: 0.76-1.46; Abnormal: Above high normal; Units: NG/DL; Status: F Lab Order: Lactic Acid (Delgado tube on ice); [facility] 10/14/16 09:57 Test: LACTIC ACID LEVEL, LACTATE; Value: 3.9; Range: 0.4-2.0; Abnormal: Above upper panic limits; Units: MMOL/L; Status: F Lab Order: UA; SPEC' 10/14/16 10:25 Test: APPEARANCE, URINE; Value: CLOUDY; Range: CLEAR; Abnormal: Above high normal; Status: F Test: COLOR, URINE; Value: YELLOW; Range: YELLOW; Status: F Test: PH,URINE; Value: 6.0; Range: 5.0-9.0; Units: UNITS; Status: F Test: SPECIFIC GRAVITY URINE AUTO; Value: 1.012; Range: 1.002-1.035; Status: F Test: PROTEIN, URINE AUTO; Value: 2+; Range: NEGATIVE; Abnormal: Above high normal; Units: mg/dL; Status: F Test: GLUCOSE, URINE (UA) AUTO; Value: 1+; Range: NEGATIVE; Abnormal: Above high normal; Units: mg/dL; Status: F Test: KETONE, URINE AUTO; Value: 1+; Range: NEGATIVE; Abnormal: Above high normal; Units: mg/dL; Status: F Test: UROBILINOGEN, URINE AUTO; Value: 2.0; Range: 0.0-2.0; Abnormal: Above high normal; Units: mg/dL; Status: F Test: BILIRUBIN, URINE AUTO; Value: NEGATIVE; Range: NEGATIVE; Status: F Test: NITRITE, URINE AUTO; Value: NEGATIVE; Range: NEGATIVE; Status: F Test: LEUKOCYTE ESTERASE, URINE AUTO; Value: 3+; Range: NEGATIVE; Abnormal: Above high normal; Status: F Test: BLOOD, URINE BLOOD; Value: 1+; Range: NEGATIVE; Abnormal: Above high normal; Status: F Test: WBC, URINE AUTO; Value: TNTC; Range: 0-3; Abnormal: Above high normal; Units: /HPF; Status: F Test: RBC, URINE AUTO; Value: 27; Range: 0-3; Abnormal: Above high normal; Units: /HPF; Status: F Test: BACTERIA, URINE AUTO; Value: NEGATIVE; Range: NEGATIVE; Status: F Test: SQUAMOUS EPITHELIAL CELL UR AU; Value: 1; Range: 0-6; Units: /HPF; Status: F Test: MUCUS, URINE; Value: SMALL; Range: NEGATIVE; Status: F Test: HYALINE CAST, URINE AUTO; Value: 5; Range: 0-1; Units: /LPF; Status: F Lab Order: MAGNESIUM LEVEL; SPEC'10/14/16 09:57 Test: MAGNESIUM LEVEL; Value: 1.8; Range: 1.8-2.4; Units: MG/DL; Status: F Lab Order: PLATELET ESTIMATE; 10/14/16 09:57 Test: PLATELET ESTIMATE; Value: INCREASED; Range: NORMAL; Status: F Lab Order: LACTIC ACID LEVEL, LACTATE; SPEC10/14/16 13:36 Test: LACTIC ACID LEVEL, LACTATE; Value: 2.1; Range: 0.4-2.0; Abnormal: Above high normal; Units: MMOL/L; Status: F Lab Order: Fingerstick Blood Sugar; ZEESHAN 10/14/16 13:19 Test: BEDSIDE GLUCOSE; Value: 321; Range: 83-110; Abnormal: Above high normal; Units: MG/DL; Status: F Radiology Order: Chest, 1 View Test: Chest, 1 View REASON FOR EXAMINATION: Syncope; Portable chest x-ray: Sitting AP view.; ; History: Syncope.; ; Findings: Right hemidiaphragm remains slightly elevated and there is some stable; pleural thickening along the right lower lateral chest wall. Fissural thickening; is seen in the minor fissure. Mild cardiomegaly is observed prior sternotomy; wires are seen. Pulmonary vasculature is not increased. No new infiltrate; seen.; ; Impression:; ; Mild cardiomegaly. Elevated right hemidiaphragm with some pleural thickening or; fluid. Findings unchanged from 11/09/2016.; ; ; Signed by; Tim Montelongo MD 10/14/2016 02:05 P; Radiology Order: CT ABD & PELVIS: No Contrast Test: CT ABD & PELVIS: No Contrast REASON FOR EXAMINATION: abdl pain; CT abdomen and pelvis without IV or oral contrast:; ; History: Lower abdominal pain. Comparison CT study is from May 09, 2015.; ; Findings: Digital field identification specialist radiograph shows an unremarkable bowel gas pattern.; There is a small right pleural effusion noted. Some discoid atelectasis is seen; in the right base. Mitral annular calcification is noted in the enlarged heart.; There is a hiatal hernia. There are granulomatous calcifications in the spleen.; An accessory splenule is noted. No focal hepatic lesion is seen. The right; kidney is surgically absent. There is no evidence of hydronephrosis in the left; kidney. There is however a large left renal calculus at mid pole position; measuring 11 mm. No ureteral stone is seen. There is left colonic; diverticulosis without CT evidence of diverticulitis. The patient is status post; hysterectomy. Urinary bladder is unremarkable. There is postoperative fibrosis; in the anterior abdominal wall centrally. There is evidence of prior ventral; hernia repair. No pancreatic abnormality is seen. No adrenal lesion is observed; on either side. There are clips in the gallbladder fossa post cholecystectomy.; ; Impression:; ; Postoperative changes including cholecystectomy, hysterectomy, right nephrectomy,; ventral hernia repair. Right pleural effusion. Hiatal hernia. Intrarenal; nephrolithiasis left kidney with an 11 mm stone. No hydronephrosis.; ; ; Signed by; Tim Montelongo MD 10/14/2016 02:05 P; Radiology Order: CT Head Without Contrast Test: CT Head Without Contrast REASON FOR EXAMINATION: Syncope; Head CT without contrast:; ; History: Syncope.; ; Findings: Digital lateral field identification specialist radiograph is unremarkable. Bone window; settings demonstrate an intact bony calvarium. Vascular calcification is noted.; The visualized paranasal sinuses are clear. No intraorbital abnormality is; appreciated.; ; There is diffuse cerebral atrophy. Concordant ventricular enlargement is seen.; There is no evidence of intracranial hemorrhage. No mass, infarct, extra-axial; fluid collection or midline shift is seen.; ; Impression:; ; Diffuse atrophy and vascular calcification. No acute intracranial abnormality.; ; ; Signed by; Tim Montelongo MD 10/14/2016 02:05 P; Outcome: 11:07 Decision to Hospitalize by Provider. 15:43 Discharge Assessment: patient administered narcotics - no. The following High Risk [facility] Discharge criteria are identified: None. Admitted to PCU accompanied by nurse, accompanied by tech. Condition: good Condition: stable Condition: improved. CT Study completed. Property :Personal belongings accompany Pt. 15:46 Patient left the ED. [facility] Signatures: Dispatcher [employer] EDMS Cornell Michel MD MD Cierra Avila RN RN [facility] Shahla Courtney,RN RN jo3 Sayra Boland, TRUST MANAGER ASSISTANT TRUST MANAGER ASSISTANT ar3 Chayito Hardy, TRUST MANAGER ASSISTANT TRUST MANAGER ASSISTANT ct3 Kati Hernandez dem1 Shahla Lopez,RN RN js13 Adin Hooks RN RN mb9 Betzaida Oreilly dm19 Corrections: (The following items were deleted from the chart) 08:26 08:24 BP 91 / 53; Pulse 93bpm; Resp 18bpm; Pulse Ox 96%; Temp 97.4F Temporal; 132 kg ct3 Measured; Height 5 ft. 1 in. Reported; BMI: 54.9; Pain 3/10; ct3 10:03 10:00 MAGNESIUM LEVEL+LAB sent. foreign SUAC[employer] 10:18 09:27 Assisted with urinal. Repositioned patient. dem1 dem1 MTDD
[2016-10-14 16:00] VITALS: BP_SYST 160; BP_SYST 162; BP_SYST 174; BP_DIAS 86; BP_DIAS 94
[2016-10-14] MEDS: ACYCLOVIR 200 MG CAPSULE PO SCH ×2 (17:00→20:45)
[2016-10-14] MEDS: OMEPRAZOLE 20 MG CAP PO SCH (17:12)
[2016-10-14] MEDS: LEVOTHYROXINE 0.125 MG TAB (125 MCG) PO SCH (17:12)
[2016-10-14] MEDS: ASPIRIN 325 MG TAB PO SCH (17:12)
[2016-10-14] MEDS: MULTIVITAMINS/MINERALS THERAP 1 TAB PO SCH (17:12)
[2016-10-14] MEDS: HumaLOG INSULIN (NovoLOG) PER UNIT SC SCH ×2 (17:13→21:00)
[2016-10-14] MEDS ORDERED: MOM 30ML SUSPENSION UDC PO ONE (18:00)
[2016-10-14] MEDS: ONDANSETRON 4MG/2ML VIAL (J2405) IV PRN (18:10)
--- NOTE | 2016-10-14 18:18 | CR ---
DATE OF CONSULTATION: 10/14/2016 REFERRING PHYSICIAN: Dr. Nasim Seo INDICATION: Syncope and marginal troponin elevation. HISTORY OF PRESENT ILLNESS: Mrs. Weir is previously unknown to me, but she has been followed by my partner, Dr. Benites. She was diagnosed with left breast cancer in June 2016, and in the process of clearing her for surgery she had a stress test that was abnormal and prompted cardiac catheterization. It revealed severe left main and triple-vessel coronary artery disease, and she underwent coronary artery bypass grafting on 08/06/2016. She was recovering reasonably well from the surgery but then unfortunately about 1 week ago started having episode of severe headache and neck pain and eventually broke out with shingles. She was given narcotics and acyclovir, but unfortunately she continued to have a lot of pain and had difficulty eating and had profound anorexia. She also became very constipated. This morning when she was attempting to have a bowel movement while sitting at the toilet, she had a syncopal event. She recalls that she felt really diaphoretic and lightheaded and eventually passed out. Her attended to her immediately. He believes that her loss of consciousness was very transient, but subsequently she was incoherent for at least an additional 2-3 minutes. Eventually, on the arrival of emergency medical transportation (EMT), she was found to be hypotensive with systolic blood pressure about 90. She was brought to emergency room. The initial electrocardiogram (ECG) reveals presence of sinus rhythm, and there are some fairly minimal ST-segment depressions precordially. Because of her hypotension and poor oral intake as of last few days, she received total of 2 liters of normal saline. That brought up her blood pressure. At the time of my interview, she is feeling better. She complains principally about constipation. She tells me that she has a feeling that she has "a block" in her rectum and that she will need to have enema, but she denies any shortness of breath, and she denies any chest discomfort. She never had similar episode before. She does admit that since she developed shingles, she has been really anorexic has not been eating much. PAST MEDICAL HISTORY: 1. Coronary artery disease as above. She underwent bypass surgery on 08/06/2016 (at [facility] in [place], Dr. Qureshi). She received left internal mammary artery (PRINGLE) to left anterior descending (LAD) and sequential saphenous vein graft (SVG) to diagonal, obtuse marginal, posterior descending artery (PDA). Preoperatively she had preserved left ventricular (LV) systolic function. She just had an echocardiogram in [facility] [address] Benites has not reported full report, but preliminary reading reveals normal LV systolic function. 2. Chronic renal insufficiency, status post nephrectomy. 3. Type 2 diabetes. 4. Hypothyroidism. 5. History of gastroesophageal reflux disease (GERD). 6. Left-sided breast cancer, awaiting surgery. 7. Glaucoma. 8. Hypertension. 9. History of pseudocholinesterase deficiency. SURGICAL HISTORY: Positive for: 1. Coronary artery bypass graft (CABG) as above. 2. Hysterectomy. 3. Cholecystectomy. 4. Incisional hernia repair. 5. Nephrectomy on the right side. 6. History of nephrolithiasis. 7. History of abdominal and umbilical hernia surgery. 8. Cataract surgery. ALLERGIES: Patient reports intolerance to DURICEF, CIPRO, and ANECTINE, together with HYDROCODONE, SULFA and SULFA CROSS-REACTORS. OUTPATIENT MEDICATIONS: Based on records from Dr. Benites's note: - alprazolam as needed - aspirin 325 a day - Lipitor 10 a day - citalopram 5 mg a day - glimepiride 2 mg three times daily - levothyroxine 112 mcg a day - lisinopril 10 a day - magnesium 400 twice a day - metoprolol 50 twice a day - omeprazole 20 a day - potassium citrate and sodium bicarbonate - acyclovir - narcotics SOCIAL HISTORY: The patient is , lives with her . She never smoked and never drank FAMILY HISTORY: Her father in his 60s and mother in 70s of unclear reasons. REVIEW OF SYSTEMS: She denies any joanna fever lately. She does have headache and pain on the right side of her neck and in her mouth since the last about 2 weeks. Denies shortness of breath. Denies chest pain. Denies palpitations. She does report diffuse abdominal discomfort and sensation of nausea. She also reports recent burning on urination. No prior syncope. No skin lesions. No chills. Rest of review of systems is negative. PHYSICAL EXAMINATION: The patient is alert and oriented. She lies in emergency room in mild Trendelenburg position. Last documented blood pressure 132/70, heart rate around 100, sinus rhythm. She is afebrile. Saturation high 90s on supplemental oxygen by nasal cannula. Her jugular venous pulse (JVP) does not appear elevated. Lungs are relatively clear to auscultation with somewhat of diminished lung sounds but decent air movement. Heart: Somewhat muffled heart sounds. I do not appreciate a murmur, gallop, or rub. There is a well-healed median sternotomy. Abdomen is diffusely tender but mostly in right upper quadrant. No guarding. Bowel sounds are present. Neurologically she appears intact. She is alert, oriented, appropriate. Is able to talk in full sentences, and I do not appreciate any focal weakness. No peripheral edema and no skin lesions. LABORATORY: Basic metabolic panel: Potassium 3.7, sodium 135, BUN 15, creatinine 1.5, glucose 302. Initial lactic acid was 3.9, followup at 3:36 was 2.1. Normal liver function test. Troponin I was borderline elevated at 0.1, albumin 3.1, TSH 12.7, amylase 84. CBC: WBC count 7.4, platelet count 428. In differential, 84% neutrophils and 7% lymphocytes. ECG as per history of present illness. Chest x-ray reveals sternotomy and borderline cardiomegaly. I suspect that there is small amount of pleural effusion on the right. She had a head CT that revealed diffuse atrophy and abdominal CT that reveals prior hysterectomy, nephrectomy, cholecystectomy, hernia repair, and right pleural effusion. No hydronephrosis and no obvious source of infection is identified. ASSESSMENT AND PLAN: Mrs. Weir is an 81-year-old female who underwent bypass surgery on 08/06/2016 for severe triple-vessel coronary artery disease (CAD) and left main disease. She has preserved left ventricular (LV) systolic function. She presented after a syncopal event that sounds typically vasovagal based on the history. She also likely has underlying dehydration, because recently she has been quite anorexic and had nausea and constipation due to side effects of narcotic that she has been taking for shingles on the right side of her neck. I would continue observation in the hospital. My suspicion that this represents ischemic event is quite low. I do not plan any specific evaluation provided there is no recurrence and her clinical course is benign. As far as the marginal troponin elevation is concerned, I am not certain how to explain this. She did have a syncopal event, so I have to assume that there was an episode of hypotension. She also has underlying renal insufficiency that can contribute to mild elevation. Again, besides observation, I would not plan any further evaluation in this matter. She does have a lactic acid elevation. I do suspect that there is underlying infection. It is either a urinary infection or intra-abdominal. The CT is fairly benign. She was covered by wide-spectrum antibiotics and was rehydrated. Further management as per hospitalist team in this regard. Finally, as far as the hypothyroidism is concerned her thyroid-stimulating hormone (TSH) is quite elevated, and I am going to increase the dose of levothyroxine. Thank you for this consultation
--- NOTE | 2016-10-14 18:39 | CR ---
DATE OF CONSULTATION: 10/14/2016 REQUESTING PHYSICIAN: Dr. Nasim Seo. REASON FOR CONSULTATION: Management of acute kidney injury in the setting of solitary functioning kidney. CHIEF COMPLAINT: The patient presented to the emergency room today with an episode of syncope. HISTORY OF PRESENT ILLNESS: Valeria Weir is an 81-year-old female with a past medical history of right- sided nephrectomy, solitary functioning left kidney, with a baseline creatinine of around one, multiple other comorbidities including recently diagnosed left-sided cancer of the breast which has not been operated upon, and she has not started on any chemotherapy or radiation for that. She was getting cardiology clearance for the left-sided mastectomy when she was found to have coronary artery disease. She is status post coronary artery bypass grafting now, and she was getting ready to get her mastectomy done when she was recently diagnosed with right-sided shingles. She was seen in the emergency room a few days ago, and she was started on acyclovir and pain medications. Because of the pain medications, the patient got constipated and she was giving herself an enema when she got a syncope episode which was witnessed by her . The patient was brought to the emergency room. She was found to be very dehydrated with systolic blood pressures in the 90s, and she had lactic acidosis as well with a lactate of 3.9. The patient was started on intravenous (IV) fluid hydration. Sepsis protocol was initiated. She got a total of three liters of IV fluid in the emergency room and she was given a dose of meropenem and vancomycin as well. Her creatinine on admission was 1.4. Nephrology service was called for management of acute kidney injury. She was also found to have evidence of urinary tract infection on urinalysis sent on triage. Urine cultures are pending. PAST MEDICAL HISTORY: The patient has a past medical history of : 1. Left-sided cancer breast which is not treated yet. 2. Jru-ewqhmij-ytcqequee diabetes. 3. Solitary function left kidney. 4. Gastroesophageal reflux disease. 5. Hypertension. 6. Hyperlipidemia. 7. Shingles that are being treated at this time as outpatient. 8. Depression. PAST SURGICAL HISTORY: 1. Status post coronary artery bypass grafting in July 2016. 2. Status post right nephrectomy. 3. Cholecystectomy. 4. History of hysterectomy. 5. Hernia repair. 6. Bilateral cataract surgeries. ALLERGIES: The patient is allergic to: 1. CEPHALOSPORINS. 2. HYDROCODONE. 3. NAPROXEN. 4. QUINOLONES. 5. SUCCINYLCHOLINE. 6. SULFA DRUGS. HOME MEDICATIONS: - [place] one tablet every four hours as needed - acyclovir 800 mg five times a day - aspirin 325 mg daily - atorvastatin 10 mg - Lexapro 5 mg - glimepiride 2 mg three times a day - levothyroxine 112 mcg - lisinopril 10 mg - magnesium 400 mg twice a day - metoprolol 50 mg twice a day - multivitamin - omeprazole 20 mg - Zofran 4 mg - sodium bicarbonate 325 mg daily - potassium citrate 50 mEq daily FAMILY HISTORY: No significant family history of end-stage renal disease requiring hemodialysis. SOCIAL HISTORY: The patient lives with her . She denies any smoking, drug abuse or alcohol abuse. REVIEW OF SYSTEMS: CONSTITUTIONAL: The patient reported feeling weak and tired and thirsty. EYES: She denies any recent blurry vision or double vision. ENT: She denies any ear discharge, dysphagia, odynophagia, sore throat. CARDIOVASCULAR: She denies any chest pain or palpitations. RESPIRATORY: She denies any cough, wheezing, or shortness of breath. GASTROINTESTINAL: The patient reported constipation but she denies any nausea or vomiting. GENITOURINARY: She reports multiple history of urinary tract infection (UTI) in the past without having any symptoms. MUSCULOSKELETAL: She reports feeling very weak and tired. CENTRAL NERVOUS SYSTEM (INTERVENTIONAL RADIOLOGY TECHNOLOGIST): She denies any history of seizures or strokes. PSYCHIATRIC: She denies any depression or anxiety. SKIN: She reports shingles. HEMATOLOGIC/ONCOLOGIC: She is diagnosed with cancer breast left-sided, which has not been treated yet. ENDOCRINE: Patient reports history of diabetes. All other review of systems was found to be negative. PHYSICAL EXAMINATION: GENERAL: The patient is awake, alert, and oriented times three, lying in bed in mild distress, feeling weak and tired, and very thirsty. VITAL SIGNS: As reported in triage, her temperature was 97.4 degrees Fahrenheit , blood pressure 91/53, pulse 93, respiratory rate of 18, saturating 96% on room air. HEAD/NECK: Extraocular muscles intact. Pupils equal, round, and reactive to light. Mucous membranes are very dry. Her tongue is dry. Neck is supple. There is no jugular venous distention (JVD). CARDIOVASCULAR: S1, S2, regular rate. No murmur, rub, or gallop. The patient has a midline sternotomy scar. RESPIRATORY: Chest is clear to auscultation bilaterally. Bilateral equal air entry. ABDOMEN: Soft, positive bowel sounds. Nontender. No ascites. No organomegaly. The patient has a Rascon catheter with clear urine in the bag. MUSCULOSKELETAL: Normal range of movement. EXTREMITIES: No clubbing or cyanosis. Pulses are 2+. INTERVENTIONAL RADIOLOGY TECHNOLOGIST: No focal neurological deficit. Power is 5/5 in all extremities. SKIN: No rashes or ulcers. PSYCHIATRIC: Normal mood and affect. LABORATORY DATA: CBC showed WBC 17.4, hemoglobin 14.9, platelets are 428. Urinalysis showed it was cloudy, 2+ protein. Nitrite was negative. Leukocyte esterase 2+. WBCs were too numerous to count RBCs 27. BMP showed sodium 135, potassium 3.7, chloride 95, bicarbonate 25, BUN 15, creatinine 1.48. Lactic acid was 3.9 initially, and after fluid hydration it came down to 2.1. Calcium 8.7. Troponin 0.11. Albumin 3.1. TSH 12.7. Free T4 is 1.5. MICROBIOLOGY: Blood cultures and urine culture are pending. IMAGING: CT scan of the head showed no acute intracranial abnormality. CT scan of the abdomen and pelvis showed postoperative changes including cholecystectomy, hysterectomy, right nephrectomy, ventral hernia repair, intrarenal nephrolithiasis in the left kidney with 11 mm stone. No hydronephrosis. Chest x-ray showed mild cardiomegaly, elevated right hemidiaphragm with some pleural thickening or fluid. CURRENT INPATIENT MEDICATIONS: The patient's inpatient medications include: - meropenem 1 gram IV every eight hours - Tylenol as needed - acyclovir 800 mg by mouth five times a day - aspirin 325 mg by mouth daily - atorvastatin 10 mg at bedtime - Colace 100 mg twice a day - Lovenox 30 mg subcutaneously - Lexapro 5 mg daily - insulin sliding scale - levothyroxine 112 mcg daily - lisinopril 10 mg daily - metoprolol 50 mg twice a day - omeprazole 20 mg daily - sodium bicarbonate 325 mg by mouth daily ASSESSMENT: An 81-year-old female with past medical history of solitary functioning kidney, baseline creatinine of one, history of diabetes mellitus type 2, left-sided kidney stones, left-sided cancer of breast which is not treated yet, admitted this time with severe sepsis secondary to urinary tract infection (UTI). Nephrology following the patient for management of acute kidney injury. PLAN: 1. Acute kidney injury. Acute kidney injury is likely secondary to sepsis, urinary tract infection, and hypotension. Medications including lisinopril and acyclovir might have also contributed. At this time, I will continue the aggressive IV fluid hydration. I am going to start the patient on IV fluid. 2. Sepsis secondary to urinary tract infection. The patient has already been started on vancomycin and meropenem. Doses adequate. The patient needs to stay in the intensive care unit (ICU) at this time because she is very dehydrated, and if patient remains hemodynamically stable overnight, then she can be downgraded to progressive care unit (PCU). Plan of care was already discussed with Dr. Seo. The patient has stones on the left side. Most likely they might be a nidus of infection. We need to discuss this with urology and have the stone removed if it is visible. 3. Shingles. The patient is on acyclovir. I would continue it at this time. 4. Constipation. Most likely secondary to opioids given for pain. Avoid the opioid medication at this time. Avoid the phosphorus-containing enema including Fleet enema which can make acute renal failure worse. 5. Left-sided cancer of breast. It was diagnosed in July 2016. She has not undergone surgery because she needed a coronary artery bypass grafting first. Rest of the management is as per hematology and oncology. 6. Hypertension. The patient is on lisinopril and metoprolol at home. If patient's blood pressure improves, then antihypertensive medications can be restarted. I would avoid using antihypertensive medications in the setting of sepsis if the patient's blood pressure is low. The plan of care was discussed with the hospitalist team, Dr. Nasim Seo. Thank you for involving us in the care of the patient. We shall be happy to follow the patient along with you tomorrow morning. FILIPE
[2016-10-14 20:00] VITALS: PULSE 88
[2016-10-14 20:23] VITALS: BP_SYST 138; BP_SYST 158; BP_SYST 162; BP_DIAS 56; BP_DIAS 80; BP_DIAS 84
[2016-10-14] MEDS: NYSTATIN 100,000 UNITS/GM TOPICAL PWD 15 GM TOP SCH (20:37)
--- NOTE | 2016-10-14 20:37 | PHACANCOPD ---
PHARMACY VANCOMYCIN DOSING Pt Demographics Demographics Patient Age:81 , Weight:88.900 , Gender: female Adjusted Body Weight Date: 10/14/16, Adjusted Body Weight: [64.2] Kg Events Past 24 Hours Events Past 24 Hours: NO: Change in CrCl, Dialysis, Diuretic Therapy, Elevation in WBC, Fever, Other, Pending Diagnostics, Pending Procedures Vancomycin Vancomycin Target Ranges: 15-20 mcg/ml Vancomycin Load Y/N: Yes Load Dose Date Time Vancomycin Load Dose: 2000MG Date: 10-14 Time: 1200 Vancomycin Dose Date: 10/14/16. Current Vancomycin Dose: [1000MG Q24H] Intermittent Dosing?: No Labs Labs Item Value Date Time White Blood Count 17.4 K/mm3 H 10/14/16956 Creatinine 1.48 MG/DL H 10/14/16956 Vital Signs Label Value Date Time Patient Temperature 97.0 degrees F 10/14/162030 Temperature Source Tympanic 10/14/162030 Micro Microbiology 10/14/16 Blood Culture, Received Pending 10/14/16 Blood Culture, Received Pending 10/14/16 Urine Culture, Received Pending Creatinine Clearance Date:10/14/16. Creatinine Clearance: [24]. Pending Labs TROUGH 01- @1100 Assessment and Plan Maintaining Current Dose?: Yes Reason for dose change: No Dose Change Pharmacist Note Pharmacist Note Date: 10/14/16. Pharmacist note:Dosed at 1000mg q24h with a trough ordered for 01- 09 @1100. Will continue to monitor and make adjustments as needed. JULIO BRYANT [facility]ARMAC[facility] Oct 14, 2016 20:36
[2016-10-14] MEDS: ATORVASTATIN 10 MG TAB PO SCH (20:38)
[2016-10-14] MEDS: ESCITALOPRAM OXALATE 5MG TABLET (LEXAPRO) PO SCH (20:38)
[2016-10-14] MEDS: SODIUM BICARBONATE 325 MG TAB PO SCH (20:38)
[2016-10-14] MEDS: METOPROLOL TART 50 MG TAB PO SCH (20:44)
[2016-10-14] MEDS: NS 1,000 ML IV SCH (20:44)
[2016-10-14] MEDS ORDERED: DOCUSATE SODIUM 100 MG CAP PO SCH (21:00)
[2016-10-14 21:35] VITALS: BP 166/72
[2016-10-14 22:00] VITALS: PULSE 88
--- NOTE | 2016-10-14 23:00 | ECGEPIP ---
Stationary ECG Study [facility] - ED Test Date: 2016-10-14 Pat Name: SARAH GORE Department: Room: - Gender: F Patient Care Assistant: charly : [id number] Requested By: Cornell Michel Order Number: [id number] Reading MD: Tang Suero Measurements Intervals [place] Rate: 84 P: 43 ND: 156 QRS: 23 QRSD: 96 T: 21 QT: 423 QTc: 502 Interpretive Statements SINUS RHYTHM MINIMAL VOLTAGE CRITERIA FOR LVH, CONSIDER NORMAL VARIANT NSTTW ABNORMALITIES Electronically Signed On 10-14-2016 22:59:57 EST by Tang Suero
[2016-10-15] VITALS (7 sets, daily range): BP systolic 106–196; BP diastolic 50–78
[2016-10-15] MEDS ORDERED: MEROPENEM INJ 1 GM in D5W MINI-BAG PLUS 100 ML IV SCH ×2 (02:00)
[2016-10-15 04:51] LABS: MEAN CORPUSCULAR HEMOGLOBIN 29.7 pg (27.0-33.0); MEAN CORPUSCULAR HGB CONC 32.6 g/dl (32.0-36.5); RED CELL DISTRIBUTION WIDTH 15.7 % (11.5-14.5); WHITE BLOOD COUNT 15.9 K/mm3 (4.0-10.0)
[2016-10-15 05:06] LABS: ALBUMIN 2.6 GM/DL (3.2-5.2); CREATININE FOR GFR 1.18 MG/DL (0.55-1.02); GLOMERULAR FILTRATION RATE 46.7 (>32); MAGNESIUM LEVEL 1.6 MG/DL (1.8-2.4); PHOSPHORUS LEVEL 3.3 MG/DL (2.5-4.9); POTASSIUM SERUM 3.2 MEQ/L (3.5-5.1)
[2016-10-15] MEDS: LEVOTHYROXINE 0.125 MG TAB (125 MCG) PO SCH (05:35)
[2016-10-15] MEDS: ACYCLOVIR 200 MG CAPSULE PO SCH ×5 (05:36→20:06)
[2016-10-15] MEDS: ONDANSETRON 4MG/2ML VIAL (J2405) IV PRN (05:39)
[2016-10-15] MEDS: NS 1,000 ML IV SCH (05:39)
[2016-10-15] MEDS ORDERED: LEVOTHYROXINE 0.112 MG TAB (112 MCG) PO SCH (06:00)
[2016-10-15] MEDS: HumaLOG INSULIN (NovoLOG) PER UNIT SC SCH ×4 (07:47→20:12)
[2016-10-15] MEDS: ASPIRIN 325 MG TAB PO SCH (08:51)
[2016-10-15] MEDS: METOPROLOL TART 50 MG TAB PO SCH ×2 (08:52→20:06)
[2016-10-15] MEDS: ESCITALOPRAM OXALATE 5MG TABLET (LEXAPRO) PO SCH (08:52)
[2016-10-15] MEDS: SODIUM BICARBONATE 325 MG TAB PO SCH (08:53)
[2016-10-15] MEDS: ENOXAPARIN 30 MG/0.3 ML SYR (J1650) SC SCH (08:53)
[2016-10-15] MEDS: MULTIVITAMINS/MINERALS THERAP 1 TAB PO SCH (08:53)
[2016-10-15] MEDS: OMEPRAZOLE 20 MG CAP PO SCH (08:53)
[2016-10-15] MEDS: NYSTATIN 100,000 UNITS/GM TOPICAL PWD 15 GM TOP SCH ×2 (08:54→20:08)
[2016-10-15] MEDS ORDERED: MAG SULF 1GM/100ML (MAG RUN) 1 GM in APPROPRIATE DILUENT 1 EA IV ONE (10:00)
[2016-10-15] MEDS ORDERED: POTASSIUM CHLORIDE 10 MEQ SR TABLET PO ONE (10:00)
[2016-10-15] MEDS ORDERED: VANCOMYCIN HCL 750 MG, VIAL MATE ADAPTER 1 EACH in D5W 250 ML IV SCH (12:00)
--- NOTE | 2016-10-15 13:20 | IPN ---
DATE OF SERVICE: 10/15/2016 Mrs. Weir feels much better today than she did yesterday. Since yesterday, she had multiple bowel movements and evacuated a lot of stools. She still tells me that she feels that she is not completely cleaned up but acknowledges that she feels overall much better. She denies any chest pain and shortness of breath. Vital signs: Blood pressure 162/71 was the last documented, but when I was seeing her it was 130/74, heart rate is in 60s to 70s. She is afebrile. Saturation 95% on room air. Weight 89.8 kg. She is alert and oriented and appropriate. Her jugular venous pressure (JVP) is not up. Lungs are clear to auscultation with good air movement. Heart examination reveals regular rhythm without gallop, rub, or murmur. Abdomen is soft. I do not appreciate any tenderness today. No peripheral edema. LABORATORY-MAC: Hemoglobin 11.8, hematocrit 36, platelet count 333, and WBC count 15.9. Basic metabolic panel: Sodium 136, potassium 3.2, BUN 17, creatinine 1.2, glucose 124, and lactic acid is now down to 0.9, troponin I is 0.29. ASSESSMENT AND PLAN: Mrs. Weir is an 81-year-old female who recently underwent coronary artery bypass grafting a little more than 2 months ago. She presented with syncopal events that clinically sounds decidedly vasovagal, but she also was quite orthostatic and required a lot of fluids. Likely, as a consequence of nausea and constipation from narcotics used to treat her zoster. She had a minimal troponin elevation. I am reluctant to call this acute coronary syndrome, and I suspect that this was a response to her profound hypotension rather than the cause. Nevertheless, because she is facing surgery for breast cancer in the near future, tentatively we will plan on repeating nuclear stress test, even though she just had a recent revascularization surgery. Unfortunately, approximately 10% of bypasses will be closed within hours of leaving operating room. Otherwise, I do not have any further recommendations for medical management. Treatment of underlying infection and electrolyte abnormalities as per primary team.
[2016-10-15] MEDS: VANCOMYCIN HCL 1,000 MG, VIAL MATE ADAPTER 1 EACH in D5W 250 ML IV SCH (13:23)
[2016-10-15] MEDS: MEROPENEM INJ 1 GM in D5W MINI-BAG PLUS 100 ML IV SCH (14:00)
--- NOTE | 2016-10-15 14:21 | IPNPDOC ---
Assessment/Plan Date Seen The patient was seen on 10/15/16. Problems Problems: (1) Sepsis Status: Resolved Problem Text: * likely secondary to UTI, pt has history of recurrent UTI and kidney stones * continue IV fluids, IV antibiotics * lactic acidosis resolved * will transfer to PCU (2) Constipation due to pain medication Status: Acute Response to Treatment: Improving Problem Text: * continue stool softener * pt was taken off of narcotics (3) Elevated troponin Status: Acute Response to Treatment: Improving Problem Text: * pt was evaluated by cardiology * she denies any chest pain, other than the mild post operative ache * troponins are trending down (4) Shingles Status: Acute Response to Treatment: Stable Problem Text: * continue antiviral medications (5) Breast cancer Status: Acute Problem Text: pt was to have surgery to remove breast but had an abnormal stress test and ended up with CABG in July, she is to see dr parada to reschedule surgery next week (6) CAD (coronary artery disease) Status: Chronic Problem Text: s/p CABG (7) Hyponatremia Status: Resolved (8) Hypokalemia Status: Resolved (9) Abnormal urinalysis Status: Acute Problem Text: * cultures pending (10) Diarrhea with dehydration Status: Resolved (11) DEMETRIO (acute kidney injury) Status: Resolved Response to Treatment: Improving (12) Syncope Status: Resolved Problem Text: likely vasovagal Plan / VTE VTE Prophylaxis Ordered?: Yes Subjective Review of Systems CC/HPI The patient is a 81-year-old female admitted with a reason for visit of Syncope. Events since last encounter pt seen and examined, doing well, had multiple bowel movements overnight, no other events, no chest pain, no shortness of breath Objective Physical Examination General Exam: Positive: No Acute Distress Eye Exam: Positive: Conjunctiva & lids normal, EOMI, PERRLA, Negative: Sclera icteric Chest Exam: Positive: Clear to auscultation, Normal air movement Heart Exam: Positive: Normal S1, Normal S2, Rate Normal, Regular Rhythm, Negative: Murmurs, Rubs Abdomen Exam: Positive: Normal bowel sounds, Soft, Negative: Hepatospenomegaly, Tenderness Extremity Exam: Positive: Normal pulses, Negative: Clubbing, Cyanosis, Edema Vital Signs/I&O Vital Signs Date Time Temp Pulse Resp B/P Pulse Ox O2 Delivery O2 Flow Rate FiO2 10/15/16 10:00 66 20 135/62 95 Room Air 10/15/16 08:00 96.8 I&O- Last 24 Hours up to 6 AM 10/15/16 05:59 Intake Total 800 ml Output Total 555 ml Balance 245 ml Laboratory Data Labs 24H Laboratory Tests 2 10/14/16 16:45: Bedside Glucose (Misc Panel) 311H 10/14/16 17:52: Creatine Kinase MB 2.5, Creatine Kinase MB Relative Index 5.31H, Lactic Acid Level 2.9*H, Total Creatine Kinase 47, Troponin I 0.47#H 10/14/16 20:56: Lactic Acid Level 3.1*H 10/14/16 21:32: Bedside Glucose (Misc Panel) 154H 10/15/16 01:06: Lactic Acid Level 1.0 10/15/16 04:04: Lactic Acid Level 0.9, Albumin 2.6L, Blood Urea Nitrogen 17, Creatinine 1.18H, Sodium Level 136, Potassium Level 3.2L, Chloride Level 99, Carbon Dioxide Level 27, Anion Gap 10, Calcium Level 8.0L, Creatine Kinase MB 1.8, Creatine Kinase MB Relative Index 5.45H, Glomerular Filtration Rate 46.7, Magnesium Level 1.6L, Phosphorus Level 3.3, Total Creatine Kinase 33, Troponin I 0.29#H 10/15/16 12:11: Bedside Glucose (Misc Panel) 110 CBC/BMP Laboratory Tests 10/15/16 04:04 Anion Gap 10, Red Blood Count 3.98 L, Mean Corpuscular Volume 91.0, Mean Corpuscular Hemoglobin 29.7, Mean Corpuscular Hemoglobin Concent 32.6, Red Cell Distribution Width 15.7 H FSBS Laboratory Tests Test 10/14/16 16:45 10/14/16 21:32 10/15/16 12:11 Range/Units Bedside Glucose (Misc Panel) 311 154 110 83-110 MG/DL Microbiology Microbiology 10/14/16 Blood Culture - Preliminary, Resulted No growth after 24 hours . All specim... 10/14/16 Blood Culture - Preliminary, Resulted No growth after 24 hours . All specim... 10/14/16 MRSA Screen, Received Pending 10/14/16 Urine Culture, Received Pending LIZBETH BLANTON DO Oct 15, 2016 14:21
[2016-10-15] MEDS: POTASSIUM CHLORIDE 10 MEQ SR TABLET PO SCH (20:06)
[2016-10-15] MEDS: ATORVASTATIN 10 MG TAB PO SCH (20:06)
[2016-10-15] MEDS: MAGNESIUM OXIDE 400 MG TAB (MAG-OX) PO SCH (20:07)
[2016-10-16] VITALS (7 sets, daily range): BP systolic 154–179; BP diastolic 65–96
[2016-10-16] MEDS: MEROPENEM INJ 1 GM in D5W MINI-BAG PLUS 100 ML IV SCH ×2 (01:33→13:42)
[2016-10-16 04:50] LABS: MEAN CORPUSCULAR HEMOGLOBIN 30.2 pg (27.0-33.0); MEAN CORPUSCULAR HGB CONC 33.5 g/dl (32.0-36.5); MEAN CORPUSCULAR VOLUME 90.1 fl (80.0-96.0); RED CELL DISTRIBUTION WIDTH 14.8 % (11.5-14.5); WHITE BLOOD COUNT 11.2 K/mm3 (4.0-10.0)
[2016-10-16 05:06] LABS: ALBUMIN 2.3 GM/DL (3.2-5.2); ANION GAP 11 MEQ/L (8-16); BLOOD UREA NITROGEN 10 MG/DL (7-18); CALCIUM LEVEL 7.7 MG/DL (8.8-10.2); CARBON DIOXIDE LEVEL 24 MEQ/L (21-32); CHLORIDE LEVEL 102 MEQ/L (98-107); CREATININE FOR GFR 0.81 MG/DL (0.55-1.02); GLOMERULAR FILTRATION RATE > 60.0 (>32); GLUCOSE, FASTING 94 MG/DL (83-110); MAGNESIUM LEVEL 1.7 MG/DL (1.8-2.4); SODIUM LEVEL 137 MEQ/L (136-145)
[2016-10-16 05:31] LABS: PHOSPHORUS LEVEL 1.9 MG/DL (2.5-4.9); POTASSIUM SERUM 4.2 MEQ/L (3.5-5.1)
[2016-10-16] MEDS: LEVOTHYROXINE 0.125 MG TAB (125 MCG) PO SCH (06:10)
[2016-10-16] MEDS: ACYCLOVIR 200 MG CAPSULE PO SCH ×5 (06:10→20:54)
[2016-10-16] MEDS: HumaLOG INSULIN (NovoLOG) PER UNIT SC SCH ×4 (07:30→20:54)
--- NOTE | 2016-10-16 08:20 | IPN ---
DATE: 10/16/2016 Mrs. Weir is feeling better. There has not been any recurrence of dizziness or near syncope. She also denies any chest pain or shortness of breath. On the other hand, she continues to complain about feeling that there is something sitting in her rectum. She believes that she is still constipated even though she has had a lot of diarrhea. Had at least three bowel movements last night. Vital signs: Blood pressure 155/74, heart rate is from 70s to 80s. She is afebrile. Saturation is 100% on room air. Fluid balance yesterday was positive about 3 liters. Weight is 90.9 kg. She is alert and oriented and appropriate. Her jugular venous pulse (JVP) is not elevated. Lungs are clear to auscultation with good air movement after she takes few deep breaths. Heart exam regular rhythm. No gallop, rub, murmur. Abdomen is still mildly tender, diffusely. No peripheral edema. Neurologically intact. Laboratory forrester: CBC: Hemoglobin 11.0 hematocrit 32.7, platelet count 320,000. Basic metabolic panel is normal. Albumin is 2.3, calcium 7.7. ASSESSMENT AND PLAN: Mrs. Weir is an 81-year-old female who presented with syncopal event that sound distinctly vasovagal. She was also quite dehydrated at the time, likely as a consequence of anorexia related to shingles and narcotic use with associated constipation and nausea. With rehydration, she looks much better. Unfortunately, she had a troponin elevation with peak about 0.47 and there were some subtle ischemic abnormalities on EKG. Consequently, I think that will have to repeat a nuclear stress test before she proceeds with left breast surgery that is scheduled for this Sunday. I do not expect a problem but statistically speaking about 10% bypasses are closed within hours of the surgery.
[2016-10-16] MEDS: ESCITALOPRAM OXALATE 5MG TABLET (LEXAPRO) PO SCH (08:38)
[2016-10-16] MEDS: NYSTATIN 100,000 UNITS/GM TOPICAL PWD 15 GM TOP SCH ×2 (08:38→20:55)
[2016-10-16] MEDS: ENOXAPARIN 30 MG/0.3 ML SYR (J1650) SC SCH (08:38)
[2016-10-16] MEDS: SODIUM BICARBONATE 325 MG TAB PO SCH (08:39)
[2016-10-16] MEDS: ASPIRIN 325 MG TAB PO SCH (08:39)
[2016-10-16] MEDS: MULTIVITAMINS/MINERALS THERAP 1 TAB PO SCH (08:39)
[2016-10-16] MEDS: OMEPRAZOLE 20 MG CAP PO SCH (08:39)
[2016-10-16] MEDS: POTASSIUM CHLORIDE 10 MEQ SR TABLET PO SCH ×2 (08:40→20:53)
[2016-10-16] MEDS: MAGNESIUM OXIDE 400 MG TAB (MAG-OX) PO SCH ×2 (08:40→20:53)
[2016-10-16] MEDS: METOPROLOL TART 50 MG TAB PO SCH ×2 (08:40→20:54)
[2016-10-16] MEDS: VANCOMYCIN HCL 1,000 MG, VIAL MATE ADAPTER 1 EACH in D5W 250 ML IV SCH (11:53)
--- NOTE | 2016-10-16 12:27 | IPN ---
DATE: 10/15/2016 SUBJECTIVE: Patient was seen and examined at the bedside today morning in the intensive care unit (ICU). Last 24 hour events were noted. Patient was upgraded from progressive care unit into intensive care unit (ICU) because of worsening lactate level and severe sepsis. Patient got aggressive fluid hydration, got IV antibiotics. She feels significantly better today. Her renal function is improving and she has started making good amount of urine. REVIEW OF SYSTEMS: Patient denies any fever or chills, rigors, headache, nausea, vomiting, chest pain, or shortness of breath. Her dry mouth and thirst is better as compared with yesterday. She denies any pain in abdomen, constipation or diarrhea. Rest of review of system is negative. OBJECTIVE: Vital signs: Temperature is 97.3 degrees Fahrenheit, blood pressure is 143/62, pulse is 79, respiratory rate of 18, saturating 96% on room air. Intake and output: Urine output recorded at 400 mL yesterday, 540 mL so far today since overnight. Weight on the bed scale is 89.8 kg. PHYSICAL EXAMINATION: General: Patient is awake, alert, oriented times three, lying in the bed, no apparent distress. Head and neck exam: Extraocular motion intact. Pupils equal, round, reactive to light. Neck is supple. There is no jugular venous distention (JVD). Cardiovascular: S1, S2. Regular rate. No murmur, rub or gallop. Patient has midline sternotomy scar. Respiratory: Decreased breath sounds at the bases and mild crepitation on bases on deep inspiration. Abdomen: Soft, positive bowel sounds, nontender, no ascites, no organomegaly. Patient has a Rascon catheter. Urine in the Rascon bag is slightly cloudy. Musculoskeletal: Normal range of movement. Extremities: No clubbing or cyanosis. Pulses are 2+. Central nervous system: No focal neurological deficit. Power is 5/5 in all extremities. Psych: Normal mood and affect. Lab review: CBC showed WBC 15.9, hemoglobin 11.8, platelets are 333. BMP showed sodium 136, potassium 3.2, chloride 99, bicarbonate 27, BUN 17, creatinine is 1.18 which is better than yesterday, it was 1.48 yesterday. Lactic acid was 0.9, calcium 8, phosphorus 3.3, magnesium 1.6, troponin 0.29, albumin 2.6. Microbiology: Blood culture is negative for 24 hours. Urine culture is pending. CURRENT MEDICATIONS: Patient's current medications were all reviewed by me. She continues to be on IV vancomycin and meropenem. She was given a gram of magnesium sulfate this morning. There is no change in the medications today as compared with yesterday. ASSESSMENT: 81-year-old female with past medical history of solitary functioning kidney, baseline creatinine of 1, history of diabetes mellitus type 2, left sided kidney stone, left sided CA breast which has not been treated yet, admitted this time with severe sepsis most likely secondary to urinary tract infection. Nephrology service following the patient for management of acute kidney injury. PLAN: 1. Acute kidney injury. It was secondary to sepsis, hypotension and most likely she has a urinary tract infection (UTI) as well because her UA was very dirty in the ER. Culture is pending. Brayan inhibitors are also on hold. Continue the IV fluids at this time. Monitor 24 hour intake and output. 2. Sepsis most likely secondary to urinary tract infection. Cultures are pending. Patient continues to be on IV vancomycin and meropenem. Volume status is adequate and lactate has normalized with aggressive hydration done overnight. Patient can be downgraded to progressive care unit now. 3. Shingles. Patient continues to be on Acyclovir, continue current dose. 4. Hypertension. Patient's lisinopril has been stopped. Blood pressure is acceptable at this time. Continue current dose of metoprolol 50 mg by mouth twice daily. 5. Left sided CA breast. CA breast was diagnosed in July 2016. She has not undergone treatment as of yet. Patient to followup with surgery and hematology/oncology after discharge from the hospital. 6. Hypomagnesemia. Patient was already given magnesium sulfate 1 gram IV this morning. 7. Hypokalemia. Patient was already given potassium chloride 40 mEq by mouth one dose today. Plan of care was discussed with the patient's RN at the bedside in the intensive care unit (ICU) and with the hospitalist, Dr. Nasim Seo today morning.
--- NOTE | 2016-10-16 12:36 | IPN ---
DATE: 10/16/2016 SUBJECTIVE: Ms. Weir was seen this morning at bedside. States that she is feeling well. Sitting up in the chair comfortably. No acute overnight issues. No fever or chills. Denies any abdominal or flank pain. No gastrointestinal symptoms. No chest pain or shortness of breath. OBJECTIVE Vital signs: Temperature 98.1, pulse 78, respiratory rate 24, blood pressure 155/74, pulse oximetry 100% on room air. Intake and output: She has had a total positive balance of 3110 mL in the previous 24 hours. Current weight of 90.9 kg. GENERAL: The patient is alert and oriented. No acute distress. HEENT: Normocephalic, atraumatic. Extraocular muscles are intact. Does have a scab of the right cheek. NECK: Supple. No jugular venous distension appreciated. HEART: She has normal S1, S2. Regular rate and rhythm. No murmurs, gallops or rubs. She does have a midline sternotomy scar. LUNGS: Clear to auscultation bilaterally. No rales, rhonchi or wheezing. ABDOMEN: Soft and nontender. Bowel sounds are present. Extremities: No cyanosis or edema. NEUROLOGIC: No focal deficits. LABORATORY DATA: WBC 11.2, hemoglobin 11.0, hematocrit 32.7, platelet count 320. Sodium 137, potassium 4.2, chloride 102, carbon dioxide 24, anion gap 11, BUN 10, creatinine 0.81, GFR greater than 60, fasting glucose 94, calcium 7.7, phosphorus 1.9, magnesium 1.7, albumin 2.3.Vancomycin trough pending. MICROBIOLOGY: blood culture showed no growth thus far, collected on October 14. Urine culture positive for Klebsiella. ASSESSMENT AND PLAN: Ms. Weir is an 81-year-old female with past medical history of solitary functioning kidney with baseline creatinine of 1, history of diabetes, left-sided kidney stone, left-sided breast cancer with plans for surgical intervention in the near future who was admitted with sepsis secondary to urinary tract infection and acute kidney injury. 1. Acute kidney injury, likely secondary to sepsis from urinary tract infection. This has resolved. The patient is no longer on fluids and her creatinine has normalized. Continue to monitor renal function and await vancomycin trough. The patient's lisinopril was held on admission. 2. Sepsis secondary to urinary tract infection. The patient was initiated on meropenem and vancomycin. Urine culture was positive for Klebsiella pneumoniae, which is sensitive to meropenem. It appears that vancomycin could be discontinued if primary team agrees that this is appropriate. 3. Left kidney stone. The patient does have a good sized stone, which will need to be removed as Klebsiella is a bacteria and this could possibly linger and this could be a nidus for infection. She will need to see urology for removal/possible lithotripsy in the near future once the infection is treated. 4. Hypertension. Lisinopril was held on admission. Metoprolol has been restarted continue to monitor blood pressure, which has been slightly elevated. 5. Shingles. The patient is on Acyclovir and reports that lesions have significantly improved. 6. History of solitary left kidney. Renal function is stable at this time. 7. Hypomagnesemia. Magnesium is currently 1.7 and it appears that she is on magnesium oxide 400 twice daily that was started yesterday night. We will give this some time to replete her magnesium level. Thank you for allowing us to participate in the care of . My preceptor for this patient encounter was Dr. Minaya. The preceptor was physically present in the building during the encounter and was fully available. As needed, all aspects of the patient interview, examination, medical decision making process, and medical care plan development were reviewed and approved by the preceptor. The preceptor is aware and concurs with the plan as stated in the body of this note and will attest to such by his/her cosignature. FILIPE
[2016-10-16] MEDS: ATORVASTATIN 10 MG TAB PO SCH (20:54)
--- NOTE | 2016-10-16 21:03 | IPNPDOC ---
Assessment/Plan Date Seen The patient was seen on 10/16/16. Problems Problems: (1) Sepsis Status: Resolved Problem Text: * positive urine culture for klebsiella * d/c iv antibiotics * pt is on levaquin now (2) Constipation due to pain medication Status: Acute Response to Treatment: Improving Problem Text: * continue stool softener * pt was taken off of narcotics (3) Elevated troponin Status: Acute Response to Treatment: Improving Problem Text: * pt was evaluated by cardiology * she denies any chest pain, other than the mild post operative ache * troponins are trending down (4) Shingles Status: Acute Response to Treatment: Stable Problem Text: * continue antiviral medications (5) Breast cancer Status: Acute Problem Text: pt was to have surgery to remove breast but had an abnormal stress test and ended up with CABG in July, she is to see dr parada to reschedule surgery next week (6) CAD (coronary artery disease) Status: Chronic Problem Text: s/p CABG (7) Hyponatremia Status: Resolved (8) Hypokalemia Status: Resolved (9) Abnormal urinalysis Status: Acute Problem Text: * cultures positive for klebsiella (10) Diarrhea with dehydration Status: Resolved (11) DEMETRIO (acute kidney injury) Status: Resolved Response to Treatment: Improving (12) Syncope Status: Resolved Problem Text: likely vasovagal Plan / VTE VTE Prophylaxis Ordered?: Yes Subjective Review of Systems CC/HPI The patient is a 81-year-old female admitted with a reason for visit of Syncope. Events since last encounter pt seen and examined, feels better but still complaining of constipation Objective Physical Examination General Exam: Positive: No Acute Distress Eye Exam: Positive: Conjunctiva & lids normal, EOMI, PERRLA, Negative: Sclera icteric Chest Exam: Positive: Clear to auscultation, Normal air movement Heart Exam: Positive: Normal S1, Normal S2, Rate Normal, Regular Rhythm, Negative: Murmurs, Rubs Abdomen Exam: Positive: Normal bowel sounds, Soft, Negative: Hepatospenomegaly, Tenderness Extremity Exam: Positive: Normal pulses, Negative: Clubbing, Cyanosis, Edema Vital Signs/I&O Vital Signs Date Time Temp Pulse Resp B/P Pulse Ox O2 Delivery O2 Flow Rate FiO2 10/16/16 20:54 79 158/68 10/16/16 20:00 97.8 16 96 Room Air I&O- Last 24 Hours up to 6 AM 10/16/16 06:00 Intake Total 4610 ml Output Total 2785 ml Balance 1825 ml Laboratory Data Labs 24H Laboratory Tests 2 10/16/16 04:12: Albumin 2.3L, Blood Urea Nitrogen 10, Creatinine 0.81, Sodium Level 137, Potassium Level 4.2#, Chloride Level 102, Carbon Dioxide Level 24, Anion Gap 11 , Calcium Level 7.7L, Glomerular Filtration Rate > 60.0, Magnesium Level 1.7L, Phosphorus Level 1.9#L 10/16/16 10:57: Vancomycin Level Trough 14.2 10/16/16 11:26: Bedside Glucose (Misc Panel) 116H 10/16/16 16:56: Bedside Glucose (Misc Panel) 108 10/16/16 20:44: CBC/BMP Laboratory Tests 10/16/16 04:12 Anion Gap 11, Red Blood Count 3.63 L, Mean Corpuscular Volume 90.1, Mean Corpuscular Hemoglobin 30.2, Mean Corpuscular Hemoglobin Concent 33.5, Red Cell Distribution Width 14.8 H FSBS Laboratory Tests Test 10/16/16 11:26 10/16/16 16:56 10/16/16 20:44 Range/Units Bedside Glucose (Misc Panel) 116 108 83-110 MG/DL Microbiology Microbiology 10/14/16 Blood Culture - Preliminary, Resulted No Growth after 48 hours. All Specime... 10/14/16 Blood Culture - Preliminary, Resulted No Growth after 48 hours. All Specime... 10/14/16 MRSA Screen - Final, Complete 10/14/16 Urine Culture - Final, Complete Klebsiella Pneumoniae LIZBETH BLANTON DO Oct 16, 2016 21:03
[2016-10-17] VITALS: BP 154/72
[2016-10-17] MEDS: MEROPENEM INJ 1 GM in D5W MINI-BAG PLUS 100 ML IV SCH ×2 (02:26→14:00)
[2016-10-17 04:00] VITALS: BP 156/74
[2016-10-17 05:53] LABS: MEAN CORPUSCULAR HEMOGLOBIN 30.9 pg (27.0-33.0); MEAN CORPUSCULAR HGB CONC 33.5 g/dl (32.0-36.5); MEAN CORPUSCULAR VOLUME 92.1 fl (80.0-96.0); RED CELL DISTRIBUTION WIDTH 14.8 % (11.5-14.5); WHITE BLOOD COUNT 8.9 K/mm3 (4.0-10.0)
[2016-10-17 05:59] LABS: ALBUMIN 2.5 GM/DL (3.2-5.2); ANION GAP 11 MEQ/L (8-16); BLOOD UREA NITROGEN 8 MG/DL (7-18); CALCIUM LEVEL 8.1 MG/DL (8.8-10.2); CARBON DIOXIDE LEVEL 24 MEQ/L (21-32); CHLORIDE LEVEL 101 MEQ/L (98-107); CREATININE FOR GFR 0.77 MG/DL (0.55-1.02); GLOMERULAR FILTRATION RATE > 60.0 (>32); GLUCOSE, FASTING 133 MG/DL (83-110); MAGNESIUM LEVEL 1.6 MG/DL (1.8-2.4); PHOSPHORUS LEVEL 1.6 MG/DL (2.5-4.9); POTASSIUM SERUM 4.7 MEQ/L (3.5-5.1); SODIUM LEVEL 136 MEQ/L (136-145)
[2016-10-17] MEDS: ACYCLOVIR 200 MG CAPSULE PO SCH ×5 (06:23→21:19)
[2016-10-17] MEDS: LEVOTHYROXINE 0.125 MG TAB (125 MCG) PO SCH (06:23)
[2016-10-17] MEDS: HumaLOG INSULIN (NovoLOG) PER UNIT SC SCH ×4 (07:30→21:00)
[2016-10-17 08:00] VITALS: BP 168/70
[2016-10-17] MEDS ORDERED: MAG SULF 1GM/100ML (MAG RUN) 1 GM in APPROPRIATE DILUENT 1 EA IV ONE (08:00)
--- NOTE | 2016-10-17 08:39 | ECGEPIP ---
Stationary ECG Study [facility] Test Date: 2016-10-15 Pat Name: SARAH GORE Department: Room: [place] [address] Gender: F Vice President Payment: DARREL : 1935 Requested By: LIZBETH BLANTON Order Number: [id number] Reading MD: Todd Sandra Measurements Intervals Artemas Rate: 83 P: 59 ME: 168 QRS: 24 QRSD: 95 T: 209 QT: 416 QTc: 491 Interpretive Statements SINUS RHYTHM Left ventricular hypertrophy by aVL criteria Nonspecific T wave abnormality Electronically Signed On 10-17-2016 8:39:29 EST by Todd Sandra
--- NOTE | 2016-10-17 08:40 | IPNPDOC ---
Date of Service/Time Oct 14, 2016 at 08:08 Progress Note SUBJECTIVE: Ms. Weir was seen this morning at bedside. States that she is feeling better. Sitting up in the chair comfortably. She reports that her urinary stream is improved. No dysuria or pressure or bladder. She does admit to some diarrhea. No gross blood. No nausea, vomiting, abdominal pain. No fevers or chills. No shortness of breath or chest pain. OBJECTIVE Vital signs: Temperature 98.0, pulse 80, respiratory rate 20, blood pressure 156/74, pulse ox 95% on room air. Intake 2630 mL, output 2450 mL, balance 180 ML . Current weight of 90.6 kg. GENERAL: The patient is alert and oriented. No acute distress. HEENT: Normocephalic, atraumatic. Extraocular muscles are intact. Does have a scab of the right cheek. NECK: Supple. No jugular venous distension appreciated. HEART: She has normal S1, S2. Regular rate and rhythm. No murmurs, gallops or rubs. She does have a midline sternotomy scar. LUNGS: Clear to auscultation bilaterally. No rales, rhonchi or wheezing. ABDOMEN: Soft and nontender. Nondistended. Bowel sounds are present. Extremities: No cyanosis or edema. Pedal pulses bilaterally NEUROLOGIC: No focal deficits. LABORATORY DATA: Anion Gap 11, Red Blood Count 3.76 L, Mean Corpuscular Volume 92.1, Mean Corpuscular Hemoglobin 30.9, Mean Corpuscular Hemoglobin Concent 33.5, Red Cell Distribution Width 14.8 H Albumin 2.5L, Calcium Level 8.1L, Magnesium Level 1.6L , Phosphorus Level 1.6L MICROBIOLOGY: blood culture showed no growth thus far, collected on October 14. Urine culture positive for Klebsiella. ASSESSMENT AND PLAN: Ms. Weir is an 81-year-old female with past medical history of solitary functioning kidney with baseline creatinine of 1, history of diabetes, left-sided kidney stone, left-sided breast cancer with plans for surgical intervention in the near future who was admitted with sepsis secondary to urinary tract infection and acute kidney injury. 1. Acute kidney injury, likely secondary to sepsis from urinary tract infection. This has resolved. The patient is no longer on fluids and her creatinine has normalized. Continue to monitor renal function. The patient's lisinopril was held on admission. Patient reports that she has an appointment with nephrology in November to establish with Dr. Coelho. 2. Sepsis secondary to urinary tract infection. The patient was initiated on meropenem and vancomycin. Urine culture was positive for Klebsiella pneumoniae, which is sensitive to meropenem. 3. Left kidney stone. The patient does have a good sized stone, which will need to be removed as Klebsiella is a bacteria and this could possibly linger and this could be a nidus for infection. She will need to see urology for removal/possible lithotripsy in the near future once the infection is treated. 4. Hypertension. Lisinopril was held on admission. She is on metoprolol, continue to monitor blood pressure. 5. Hypomagnesemia. Magnesium is currently 1.6. Mag run given. Continue oral magnesium oxide. Continue to monitor electrolytes 6. Hypophosphatemia. Phosphorus level low at 1.6. She was counseled to drink beverages with high phosphorous. 7. Shingles. The patient is on Acyclovir and reports that lesions have significantly improved. 8. History of solitary left kidney. Renal function is stable at this time. DISPOSITION: Patient's renal function is stable. Nephrology will be signing off of her care. Feel free to call if there are any new issues. Thank you for allowing us to participate in the care of Ms. Weir. GME ATTESTATION GME ATTESTATION My preceptor for this patient encounter was physically present in the building during the encounter and was fully available. As needed, all aspects of the patient interview, examination, medical decision making process, and medical care plan development were reviewed and approved by the preceptor. Preceptor is aware and concurs with the plan as stated in the body of this note and will attest to such by his/her cosignature. KENDRA IGLESIAS DO Oct 17, 2016 08:40 06:00 Intake Total 2570 ml Output Total 2225 ml Balance 345 ml Laboratory Tests 2 10/16/16 10:57: Vancomycin Level Trough 14.2 10/16/16 11:26: Bedside Glucose (Misc Panel) 116H 10/16/16 16:56: Bedside Glucose (Misc Panel) 108 10/16/16 20:44: Bedside Glucose (Misc Panel) 123H 10/17/16 04:56: Albumin 2.5L, Blood Urea Nitrogen 8, Creatinine 0.77, Sodium Level 136, Potassium Level 4.7, Chloride Level 101, Carbon Dioxide Level 24, Anion Gap 11, Calcium Level 8.1L, Glomerular Filtration Rate > 60.0, Magnesium Level 1.6L, Phosphorus Level 1.6L Laboratory Tests 10/17/16 04:56 Anion Gap 11, Red Blood Count 3.76 L, Mean Corpuscular Volume 92.1, Mean Corpuscular Hemoglobin 30.9, Mean Corpuscular Hemoglobin Concent 33.5, Red Cell Distribution Width 14.8 H Microbiology 10/14/16 Blood Culture - Preliminary, Resulted No Growth after 48 hours. All Specime... 10/14/16 Blood Culture - Preliminary, Resulted No Growth after 48 hours. All Specime... 10/14/16 MRSA Screen - Final, Complete 10/14/16 Urine Culture - Final, Complete Klebsiella Pneumoniae GME ATTESTATION GME ATTESTATION My preceptor for this patient encounter was physically present in the building during the encounter and was fully available. As needed, all aspects of the patient interview, examination, medical decision making process, and medical care plan development were reviewed and approved by the preceptor. Preceptor is aware and concurs with the plan as stated in the body of this note and will attest to such by his/her cosignature. KENDRA IGLESIAS DO Oct 17, 2016 08:40
[2016-10-17] MEDS: ENOXAPARIN 30 MG/0.3 ML SYR (J1650) SC SCH (08:47)
[2016-10-17] MEDS: ASPIRIN 325 MG TAB PO SCH (08:47)
[2016-10-17] MEDS: OMEPRAZOLE 20 MG CAP PO SCH (08:47)
[2016-10-17] MEDS: SODIUM BICARBONATE 325 MG TAB PO SCH (08:47)
[2016-10-17] MEDS: MAGNESIUM OXIDE 400 MG TAB (MAG-OX) PO SCH ×2 (08:48→21:19)
[2016-10-17] MEDS: MULTIVITAMINS/MINERALS THERAP 1 TAB PO SCH (08:48)
[2016-10-17] MEDS: METOPROLOL TART 50 MG TAB PO SCH ×2 (08:48→21:19)
[2016-10-17] MEDS: ESCITALOPRAM OXALATE 5MG TABLET (LEXAPRO) PO SCH (08:49)
[2016-10-17] MEDS: NYSTATIN 100,000 UNITS/GM TOPICAL PWD 15 GM TOP SCH ×2 (09:00→21:20)
--- NOTE | 2016-10-17 09:12 | ECGEPIP ---
Stationary ECG Study [facility] Test Date: 2016-10-16 Pat Name: SARAH GORE Department: Room: [place] [address] Gender: F Diving Fisher: JIM : 1935 Requested By: LIZBETH BLANTON Order Number: [id number] Reading MD: Todd Sandra Measurements Intervals [place] Rate: 85 P: 70 [place]: 153 QRS: 41 QRSD: 94 T: 16 QT: 399 QTc: 475 Interpretive Statements SINUS RHYTHM NONSPECIFIC T-WAVE ABNORMALITY Electronically Signed On 10-17-2016 9:11:44 EST by Todd Sandra
--- NOTE | 2016-10-17 09:32 | ECGEPIP ---
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
--- NOTE | 2016-10-17 11:18 | EDDOCDS ---
Physician Documentation [facility] Name: Valeria Weir Age: 81 yrs Sex: Female : 1935 Arrival Date: 10/14/2016 Time: 08:08 Bed Admit Hold Private MD: Frank Lorenz A. Disposition: 10/14 12:03 Critical Care:. ml Disposition: 10/14/16 11:07 Hospitalization ordered by Nasim Seo for Inpatient Admission. Preliminary diagnosis are Vomiting - elevated lactic acid; elevated troponin, Generalized abdominal pain, Cystitis, Sepsis, unspecified organism. - Bed requested for PCU. - [facility] - Condition is Stable. - Problem is new. - Symptoms are unchanged. Historical: - Allergies: cefadroxil; Ciprofloxacin; SUCCINYLCHOLINE; - Home Meds: 1. acyclovir 800 mg Oral tab 1 tab 5 times per day started 10/08/16 2. aspirin 325 mg Oral tab 1 tab once daily 3. atorvastatin 10 mg oral tab 1 tab once daily 4. escitalopram oxalate 5 mg oral tab 1 tab once daily 5. glimepiride 2 mg Oral tab 1 tab three times a day 6. levothyroxine 112 mcg Oral tab 1 tab once daily 7. lisinopril 10 mg Oral tab 1 tab once daily 8. magnesium oxide 400 mg Oral tab daily 9. metoprolol succinate oral 10. metoprolol tartrate 50 mg Oral tab 1 tab 2 times per day 11. [place] 5-325 mg Oral tab 1 tab every 4-6 hours 12. omeprazole 20 mg Oral cpDR 1 cap once daily 13. 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 No barriers to communication noted, The patient speaks fluent Yi. - Family history: Not pertinent. - : The pt / caregiver states he / she is not on anticoagulants. Home medication list is obtained from the patient, family members. - Exposure Risk Screening:: Recent exposure to shingles, Patient has shingles outbreak now. Vital Signs: 08:19 Weight 88.9 kg / 195.99 lbs; Height 5 ft. 1 in. (154.94 cm); 13 08:19 BP 91 / 53; Pulse 93; Resp 18; Temp 97.4(TE); Pulse Ox 96% ; Weight 132 kg / 291.01 lbs ct3 (M); Height 5 ft. 1 in. (154.94 cm) (R); Pain 3/10; 08:34 BP 91 / 55 (auto/); js13 08:34 Pulse 90 MON; Resp 16; Pulse Ox 95% on R/A; 13 08:47 BP 95 / 52 (auto/); 13 08:47 Pulse 82 MON; Resp 16; Pulse Ox 95% on R/A; 13 09:02 BP 106 / 52 (auto/); 13 09:02 Pulse 82 MON; Resp 16; Pulse Ox 97% on R/A; 13 09:32 BP 104 / 42 (auto/); 13 09:32 Pulse 86 MON; Resp 16; Pulse Ox 98% on R/A; 13 10:02 BP 159 / 66 (auto/); 13 10:02 Pulse 88 MON; Resp 16; Pulse Ox 98% on R/A; 13 10:17 BP 186 / 74 (auto/); 13 10:17 Pulse 84; Resp 16; Pulse Ox 97% ; 13 12:21 BP 168 / 84 RA Supine (man/reg); mb9 12:43 Pulse 100 MON; Pulse Ox 95% ; mb9 13:01 Pulse 98 MON; Pulse Ox 94% ; mb9 13:27 Pulse 106 MON; Pulse Ox 95% ; mb9 13:34 Pulse 100 MON; Pulse Ox 94% ; mb9 13:46 Pulse 102 MON; Pulse Ox 95% ; mb9 13:53 Pulse 98 MON; Pulse Ox 94% ; mb9 14:04 BP 136 / 62 RA Supine (man/reg); Pulse 102 MON; Pulse Ox 95% ; mb9 14:12 Pulse 102 MON; Pulse Ox 96% ; mb9 14:26 BP 136 / 64; Pulse 100 MON; Resp 18; Temp 97.3(TE); Pulse Ox 95% ; Pain 0/10; mb9 08:19 Body Mass Index 37.03 (88.90 kg, 154.94 cm) [facility] MDM: 08:35 NS 0.9% 1000 ml IV at bolus once ordered. js13 08:42 [facility] [place] Payment Agreement was scanned into [employer] and attached to record. [id number] 09:00 Financial registration complete. dm19 09:09 IV Saline Lock ordered. ml 09:10 CBC with Diff Ordered. EDMS 09:10 MED Profile Ordered. EDMS 09:10 Liver Profile Ordered. EDMS 09:10 Amylase Ordered. EDMS 09:10 Lipase Ordered. EDMS 09:10 CIP Ordered. EDMS 09:10 Troponin Ordered. EDMS 09:10 TSH with Free T4 Ordered. EDMS 09:11 Chest, 1 View Ordered. EDMS 09:11 ECG WITH READING ER PHYS+CARDIAG ordered. EDMS 09:11 Lactic Acid (Delgado tube on ice) Ordered. EDMS 09:11 Straight cath ordered. ml 09:12 UA Ordered. EDMS 09:12 Urine Culture Ordered. EDMS 09:12 CT ABD & PELVIS: No Contrast Ordered. EDMS 09:13 Flight Radio Operator/Pulse Ox/q 15 min VS ordered. ml 09:13 Rhythm Strip to chart ordered. ml 09:14 CT Head Without Contrast Ordered. EDMS 09:33 NS 0.9% 1000 ml IV at bolus once ordered. ml 10:04 MAGNESIUM LEVEL Ordered. EDMS 10:06 BED REQUEST+ADM ordered. EDMS 10:24 DIFFERENTIAL NO CHARGE Ordered. EDMS 10:24 PLATELET ESTIMATE Ordered. EDMS 10:37 CBC with Diff Reviewed. ml 10:37 MED Profile Reviewed. ml 10:37 Liver Profile Reviewed. ml 10:37 Troponin Reviewed. ml 10:37 TSH with Free T4 Reviewed. ml 10:37 Lactic Acid (Delgado tube on ice) Reviewed. ml 10:37 Amylase Reviewed. ml 10:37 Lipase Reviewed. ml 10:37 CIP Reviewed. ml 10:37 MAGNESIUM LEVEL Reviewed. ml 10:37 PLATELET ESTIMATE Reviewed. ml 10:37 CT ABD & PELVIS: No Contrast Reviewed. ml 10:53 NS 0.9% 1000 ml IV at bolus once ordered. js13 11:04 vancomycin (loading dose for pt. wt. >= 80kg) 2000 mg IVPB once ordered. ml 11:04 Merrem 1 grams IV at bolus once ordered. ml 11:09 -Blood Culture (Adults Only), peripheral from different site, or from device/port/PICC ml etc. if present ordered. 11:10 -Blood Culture Ordered. EDMS 11:13 -Blood Culture (Adults Only), peripheral from different site, or from device/port/PICC ar3 etc. if present complete. 11:14 BLOOD CULTURES Ordered. EDMS 11:51 NO ADDED SALT DIET ordered. EDMS 11:51 CARDIAC INJURY PROFILE Ordered. EDMS 11:52 CARDIAC INJURY PROFILE Ordered. EDMS 11:52 TROPONIN Ordered. EDMS 11:52 TROPONIN Ordered. EDMS 11:53 Admission / Observation Status ordered. EDMS 12:16 ELECTROCARDIOGRAM ADULT ordered. EDMS 12:16 ELECTROCARDIOGRAM ADULT ordered. EDMS 12:16 ELECTROCARDIOGRAM ADULT ordered. EDMS 12:23 LACTIC ACID LEVEL, LACTATE Ordered. EDMS 15:02 NovoLOG 6 units Sub-Q once; administer within 5-10 min before a meal/food and no later mb9 than at the start of the meal/snack ordered. 16:02 T-Sheet-- Draft Copy was scanned into [employer] and attached to record. klr 10/15 09:54 ECG/EKG was scanned into [employer] and attached to record. gb 09:55 Radiology Report was scanned into [employer] and attached to record. gb Point of Care Testing: Blood Glucose: 10/14 13:21 Blood Glucose: 321 mg/dL; mb9 Ranges: Administered Medications: 08:35 Drug: NS 0.9% 1000 ml [sodium chloride 0.9 % intravenous solution] Route: IV; Rate: js13 bolus; Site: left antecubital; 10:53 Follow up: IV Status: Completed infusion; IV Intake: 1000ml js13 10:01 Drug: NS 0.9% 1000 ml [sodium chloride 0.9 % intravenous solution] Route: IV; Rate: js13 bolus; Site: left antecubital; 12:00 Follow up: IV Intake: 1000ml mb9 10:53 Drug: NS 0.9% 1000 ml [sodium chloride 0.9 % intravenous solution] Route: IV; Rate: js13 bolus; Site: left antecubital; 14:10 Follow up: IV Intake: 1000ml mb9 12:00 Drug: vancomycin (loading dose for pt. wt. >= 80kg) 2000 mg [vancomycin 1,000 mg mb9 intravenous injection] {Note: Dose split into 2 250ml bags. 1st running at this time. .} Route: IVPB; Site: left antecubital; 14:10 Follow up: IV Intake: 500ml mb9 14:20 Drug: Merrem 1 grams Route: IV; Rate: bolus; Site: left antecubital; mb9 15:21 Drug: NovoLOG 6 units Route: Sub-Q; Site: right upper arm; mb9 Critical Care Time: 12:03 Critical care time: Bedside Care: 120 minutes, Consultation: 20 minutes. Total time: ml 140 minutes Signatures: Dispatcher [employer] EDMS Cornell Michel MD MD ml Cierra Avila, RN RN kpj Qi Garland, Reg Reg gb Sayra Boland, RADIATION PROTECTION TECHNICIAN RADIATION PROTECTION TECHNICIAN ar3 Shahla LopezRN RN js13 Adin HooksRN RN mb9 Maira Merritt Diane [id number] The chart was reviewed and I authenticate all verbal orders and agree with the evaluation and treatment provided.Corrections: (The following items were deleted from the chart) 10:03 09:11 MAGNESIUM LEVEL+LAB ordered. EDMS EDMS Attachments: 08:42 [facility] Payment Agreement [id number] 16:02 T-Sheet-- Draft Copy r 10/15 09:54 ECG/EKG Chart Complete MTDD
--- NOTE | 2016-10-17 11:19 | EDDOCDS ---
Nurse's Notes [facility] Name: Valeria Weir Age: 81 yrs Sex: Female : 1935 Arrival Date: 10/14/2016 Time: 08:08 Bed Admit Hold Private MD: Frank Lorenz A. Diagnosis: Vomiting-elevated lactic acid; elevated troponin;Generalized abdominal pain;Cystitis;Sepsis, unspecified organism Presentation: 10/14 08:13 Presenting complaint: EMS states: Patient woke up this morning and family states she is js13 "dying" and near passing out. Patient A&O X3. Patient took laxative last night and had a large BM in ambulance. Suicide/Homicide risk assessment- the patient denies having any suicidal and/or homicidal ideations and does not present with any other emotional, behavioral or mental health complaints. Status: Patient is not a senior director creative services or dependent. Transition of care: patient was not received from another setting of care. Care prior to arrival: See EMS report. Saline lock initiated. Glucose check. 300. 08:13 Acuity: TERRA Level 3 js13 08:13 Method Of Arrival: Ambulance 13 Triage Assessment: 08:19 General: Appears in no apparent distress, Behavior is appropriate for age, cooperative. js13 Pain: Denies pain. Neurological: Level of Consciousness is awake, alert, obeys commands. Cardiovascular: Chest pain is denied. Respiratory: Airway is patent Respiratory effort is even, unlabored, Respiratory pattern is regular, symmetrical, Breath sounds are clear. Derm: Skin is pink, warm & dry. Rash noted that is red, on head, face and neck. Historical: - Allergies: cefadroxil; Ciprofloxacin; SUCCINYLCHOLINE; - Home Meds: 1. acyclovir 800 mg Oral tab 1 tab 5 times per day started 10/08/16 2. aspirin 325 mg Oral tab 1 tab once daily 3. atorvastatin 10 mg oral tab 1 tab once daily 4. escitalopram oxalate 5 mg oral tab 1 tab once daily 5. glimepiride 2 mg Oral tab 1 tab three times a day 6. levothyroxine 112 mcg Oral tab 1 tab once daily 7. lisinopril 10 mg Oral tab 1 tab once daily 8. magnesium oxide 400 mg Oral tab daily 9. metoprolol succinate oral 10. metoprolol tartrate 50 mg Oral tab 1 tab 2 times per day 11. [place] 5-325 mg Oral tab 1 tab every 4-6 hours 12. omeprazole 20 mg Oral cpDR 1 cap once daily 13. 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 No barriers to communication noted, The patient speaks fluent Macedonian. - Family history: Not pertinent. - : The pt / caregiver states he / she is not on anticoagulants. Home medication list is obtained from the patient, family members. - Exposure Risk Screening:: Recent exposure to shingles, Patient has shingles outbreak now. Screenin:22 Screening information is obtained from the patient. Fall risk: At risk due to age. js13 Assistance ADL's: requires no assistance with activities of daily living. Abuse/DV Screen: The patient / caregiver reports he/she is: not in a situation that causes fear, pain or injury. Nutritional screening: No deficits noted. Advance Directives: There is no active DNR order. home support is adequate. Assessment: 08:22 General: Appears in no apparent distress, comfortable, Behavior is appropriate for age, js13 cooperative. Pain: Denies pain. Neurological: Level of Consciousness is awake, alert, obeys commands. Cardiovascular: Rhythm is regular Chest pain is denied. Respiratory: Airway is patent Respiratory effort is even, unlabored, Respiratory pattern is regular, symmetrical, Breath sounds are clear. Derm: Skin is pink, warm & dry. Rash noted that is red, on neck and face and head. 09:30 General: Appears in no apparent distress, comfortable, Behavior is appropriate for age, js13 cooperative. Pain: Denies pain. Neurological: Level of Consciousness is awake, alert, obeys commands. Cardiovascular: Rhythm is regular Chest pain is denied. Respiratory: Airway is patent Respiratory effort is even, unlabored, Respiratory pattern is regular, symmetrical. Derm: Skin is pink, warm & dry. 10:29 Adult Sepsis Screening: The patient does not have new or worsening altered mentation. js13 Patient's respiratory rate is less than 22. Systolic blood pressure is greater than 100. Patient has a qSOFA score of 0- Negative Sepsis Screen. General: Appears in no apparent distress, comfortable, Behavior is appropriate for age, cooperative. Pain: Denies pain. Cardiovascular: Rhythm is regular Chest pain is denied. Respiratory: Airway is patent Respiratory effort is even, unlabored, Respiratory pattern is regular, symmetrical. Derm: Skin is pink, warm & dry. 12:04 General: Appears uncomfortable, Behavior is fussy. General: pt complains of urinary mb9 incontinence. pt requesting to have a shankar catheter inserted at this time. Dr Seo contacted by this RN. New order received to insert shankar catheter. . Neurological: Level of Consciousness is awake, alert. Cardiovascular: Rhythm is regular. Respiratory: Airway is patent Respiratory effort is even, unlabored. : Reports incontinence. 13:10 Reassessment: Patient appears in no apparent distress at this time. Adult Sepsis mb9 Screening: The patient does not have new or worsening altered mentation. Patient's respiratory rate is less than 22. Systolic blood pressure is greater than 100. Patient has a qSOFA score of 0- Negative Sepsis Screen. General: Appears comfortable, Behavior is fussy. Pain: Denies pain. Neurological: Level of Consciousness is awake, alert. Respiratory: Airway is patent Respiratory effort is even, unlabored. : Shankar in place to gravity drainage. 13:28 General: pt refusing to have NIBP cuff in place. pt wants her bp checked manual mb9 stating, "the machine is always higher, they always have to do it with a manual cuff and its killing my arm". cuff removed. . 13:43 General: Dr Seo made aware of pt's elevated bp and that nothing was ordered until 9pm mb9 tonight. Dr Seo asked that we check with Dr Bates in regards to ordering her metoprolol now at this time". . 14:05 General: Dr Bates in to see pt at this time. . mb9 14:22 General: Dr Bates made aware of pt's request for her Lopressor now. Dr Bates states, mb9 "I don't think she needs an additional dose of her Lopressor". . 15:02 General: This RN spoke with Dr Seo regarding pt's fsbs of 321 and that according to mb9 the sliding scale she would receive 6 units of insulin SQ. Dr Seo also made aware that the pt was refusing her lunch because she didn't feel up to eating. New order received for Novolog 6 units SQ x1 now. . 15:21 Reassessment: Patient appears in no apparent distress at this time. Adult Sepsis mb9 Screening: The patient does not have new or worsening altered mentation. Patient's respiratory rate is less than 22. Systolic blood pressure is greater than 100. Patient has a qSOFA score of 0- Negative Sepsis Screen. General: Appears in no apparent distress, comfortable, Behavior is appropriate for age, cooperative. Pain: Denies pain. Neurological: Level of Consciousness is awake, alert. Respiratory: Airway is patent Respiratory effort is even, unlabored. 15:45 General: This RN spoke with Speedy NGUYEN on pcu to ask if they received the SBAR on the mb9 pt. Speedy replied, "yes we got bladimir is ready". . Vital Signs: 08:19 Weight 88.9 kg; Height 5 ft. 1 in. (154.94 cm); js13 08:19 BP 91 / 53; Pulse 93; Resp 18; Temp 97.4(TE); Pulse Ox 96% ; Weight 132 kg (M); Height ct3 5 ft. 1 in. (154.94 cm) (R); Pain 3/10; 08:34 BP 91 / 55 (auto/); js13 08:34 Pulse 90 MON; Resp 16; Pulse Ox 95% on R/A; js13 08:47 BP 95 / 52 (auto/); js13 08:47 Pulse 82 MON; Resp 16; Pulse Ox 95% on R/A; js13 09:02 BP 106 / 52 (auto/); js13 09:02 Pulse 82 MON; Resp 16; Pulse Ox 97% on R/A; js13 09:32 BP 104 / 42 (auto/); js13 09:32 Pulse 86 MON; Resp 16; Pulse Ox 98% on R/A; js13 10:02 BP 159 / 66 (auto/); js13 10:02 Pulse 88 MON; Resp 16; Pulse Ox 98% on R/A; js13 10:17 BP 186 / 74 (auto/); js13 10:17 Pulse 84; Resp 16; Pulse Ox 97% ; js13 12:21 BP 168 / 84 RA Supine (man/reg); mb9 12:43 Pulse 100 MON; Pulse Ox 95% ; mb9 13:01 Pulse 98 MON; Pulse Ox 94% ; mb9 13:27 Pulse 106 MON; Pulse Ox 95% ; mb9 13:34 Pulse 100 MON; Pulse Ox 94% ; mb9 13:46 Pulse 102 MON; Pulse Ox 95% ; mb9 13:53 Pulse 98 MON; Pulse Ox 94% ; mb9 14:04 BP 136 / 62 RA Supine (man/reg); Pulse 102 MON; Pulse Ox 95% ; mb9 14:12 Pulse 102 MON; Pulse Ox 96% ; mb9 14:26 BP 136 / 64; Pulse 100 MON; Resp 18; Temp 97.3(TE); Pulse Ox 95% ; Pain 0/10; mb9 08:19 Body Mass Index 37.03 (88.90 kg, 154.94 cm) js13 Vitals: 08:19 Log In Time N/A - ambulance arrival. js13 ED Course: 08:09 Patient visited by Sayra Boland PCA. ar3 08:09 Shahla Lopez,PATRICK is Primary Nurse. ar3 08:09 Frank Lorenz is Private Physician. ar3 08:09 Patient moved to Waiting ar3 08:09 Patient moved to 15 ar3 08:15 Triage Initiated js13 08:19 Accompanied by Family Member, Patient has correct armband on for positive ct3 identification. Placed in gown. Bed in low position. Call light in reach. Side rails up X2. Cleaned of incontinence. Linen changed. bus driver/monitor on. Pulse ox on. NIBP on. 08:22 The patient / caregiver is instructed regarding the plan of care and ED course. Placed js13 in gown. Bed in low position. Call light in reach. Side rails up X2. bus driver/monitor on. Pulse ox on. NIBP on. 08:22 Maintain field IV. Dressing intact. Good blood return noted. Site clean & dry. Gauge & js13 site: 18 gauge LAC. No procedures done that require assistance. 08:24 Patient visited by Shahla Lopez,PATRICK. js13 08:27 Patient visited by Chayito Hardy PCA. ct3 08:42 [facility] Payment Agreement was scanned into [employer] and attached to record. dm19 08:53 Cornell Michel MD is Attending Physician. ml 08:53 Patient visited by Cornell Michel MD. ml 09:26 EKG done. (by ED staff). Reviewed by Cornell Michel MD. dem1 09:27 Patient visited by Kati Hernandez. dem1 09:27 Assisted with bedpan. Repositioned patient. dem1 09:57 Patient visited by Chayito Hardy PCA. ct3 10:00 Lactic Acid (Delgado tube on ice) Sent. jo3 10:00 TSH with Free T4 Sent. jo3 10:00 CBC with Diff Sent. jo3 10:00 MED Profile Sent. jo3 10:00 Liver Profile Sent. jo3 10:00 Amylase Sent. jo3 10:00 CIP Sent. jo3 10:00 Troponin Sent. jo3 10:17 Assisted with bedpan. dem1 10:22 CT ABD & PELVIS: No Contrast Returned. EDMS 10:26 Urine Culture Sent. js13 10:26 UA Sent. js13 10:26 Quick cath inserted Specimen obtained. Returned cloudy urine. Patient tolerated well. js13 10:29 Patient visited by Shahla Lopez RN. js13 10:33 DIFFERENTIAL NO CHARGE Sent. js13 10:56 CT Head Without Contrast Returned. EDMS 10:56 Chest, 1 View Returned. EDMS 11:06 Nasim Seo is Hospitalizing Provider. ml 12:11 Patient visited by Kati Hernandez. dem1 12:11 Assisted with bedpan. dem1 13:11 Shankar cath inserted 18 Fr. Balloon inflated. To gravity drainage. mb9 14:09 Patient moved to Admit Hold kpj 14:30 CT ABD & PELVIS: No Contrast Returned. EDMS 16:02 T-Sheet-- Draft Copy was scanned into [employer] and attached to record. klr 10/15 09:54 ECG/EKG was scanned into [employer] and attached to record. gb 09:55 Radiology Report was scanned into [employer] and attached to record. gb Administered Medications: 10/14 08:35 Drug: NS 0.9% 1000 ml [sodium chloride 0.9 % intravenous solution] Route: IV; Rate: js13 bolus; Site: left antecubital; 10:53 Follow up: IV Status: Completed infusion; IV Intake: 1000ml js13 10:01 Drug: NS 0.9% 1000 ml [sodium chloride 0.9 % intravenous solution] Route: IV; Rate: js13 bolus; Site: left antecubital; 12:00 Follow up: IV Intake: 1000ml mb9 10:53 Drug: NS 0.9% 1000 ml [sodium chloride 0.9 % intravenous solution] Route: IV; Rate: js13 bolus; Site: left antecubital; 14:10 Follow up: IV Intake: 1000ml mb9 12:00 Drug: vancomycin (loading dose for pt. wt. >= 80kg) 2000 mg [vancomycin 1,000 mg mb9 intravenous injection] {Note: Dose split into 2 250ml bags. 1st running at this time. .} Route: IVPB; Site: left antecubital; 14:10 Follow up: IV Intake: 500ml mb9 14:20 Drug: Merrem 1 grams Route: IV; Rate: bolus; Site: left antecubital; mb9 15:21 Drug: NovoLOG 6 units Route: Sub-Q; Site: right upper arm; mb9 Point of Care Testing: Blood Glucose: 13:21 Blood Glucose: 321 mg/dL; mb9 Ranges: Intake: 10:53 IV: 1000.00ml; Total: 1000.00ml. js13 12:00 IV: 1000.00ml; Total: 2000.00ml. mb9 14:10 IV: 1000.00ml; Total: 3000.00ml. mb9 14:10 IV: 500.00ml; Total: 3500.00ml. mb9 14:26 PO: 60.00ml; Total: 3560.00ml. mb9 Output: 14:26 Urine: 1200.00ml (Shankar); Total: 1200.00ml. mb9 Order Results: Lab Order: CBC with Diff; SPEC'M 10/14/16 09:57 Test: WHITE BLOOD COUNT; Value: 17.4; Range: 4.0-10.0; Abnormal: Above high normal; Units: K/mm3; Status: F Test: RED BLOOD COUNT; Value: 4.97; Range: 4.00-5.40; Units: M/mm3; Status: F Test: HEMOGLOBIN; Value: 14.9; Range: 12.0-16.0; Units: g/dl; Status: F Test: HEMATOCRIT; Value: 46.3; Range: 36.0-47.0; Units: %; Status: F Test: MEAN CORPUSCULAR VOLUME; Value: 93.1; Range: 80.0-96.0; Units: fl; Status: F Test: MEAN CORPUSCULAR HEMOGLOBIN; Value: 30.0; Range: 27.0-33.0; Units: pg; Status: F Test: MEAN CORPUSCULAR HGB CONC; Value: 32.2; Range: 32.0-36.5; Units: g/dl; Status: F Test: RED CELL DISTRIBUTION WIDTH; Value: 14.7; Range: 11.5-14.5; Abnormal: Above high normal; Units: %; Status: F Test: PLATELET COUNT, AUTOMATED; Value: 428; Range: 150-450; Units: k/mm3; Status: F Test: NEUTROPHILS; Value: 84; Range: 35-75; Abnormal: Above high normal; Units: %; Status: F Test: LYMPHOCYTES; Value: 7; Range: 16-52; Abnormal: Below low normal; Units: %; Status: F Test: MONOCYTES; Value: 5; Range: 0-8; Units: %; Status: F Test: EOSINOPHILS; Value: 1; Range: 0-5; Units: %; Status: F Test: ATYPICAL LYMPH; Value: 3; Range: 0-5; Units: %; Status: F Test: RBC MORPHOLOGY; Value: NORMAL; Status: F Lab Order: [facility]; [facility] 10/14/16 09:57 Test: GLUCOSE, FASTING; Value: 302; Range: 83-110; Abnormal: Above high normal; Units: MG/DL; Status: F Test: BLOOD UREA NITROGEN; Value: 15; Range: 7-18; Units: MG/DL; Status: F Test: CREATININE FOR GFR; Value: 1.48; Range: 0.55-1.02; Abnormal: Above high normal; Units: MG/DL; Status: F Test: GLOMERULAR FILTRATION RATE; Value: 35.9; Range: >32; Status: F Test: SODIUM LEVEL; Value: 135; Range: 136-145; Abnormal: Below low normal; Units: MEQ/L; Status: F Test: POTASSIUM SERUM; Value: 3.7; Range: 3.5-5.1; Units: MEQ/L; Status: F Test: CHLORIDE LEVEL; Value: 95; Range: 98-107; Abnormal: Below low normal; Units: MEQ/L; Status: F Test: CARBON DIOXIDE LEVEL; Value: 25; Range: 21-32; Units: MEQ/L; Status: F Test: ANION GAP; Value: 15; Range: 8-16; Units: MEQ/L; Status: F Test: CALCIUM LEVEL; Value: 8.7; Range: 8.8-10.2; Abnormal: Below low normal; Units: MG/DL; Status: F Test Note: ; Units are mL/min/1.73 m2 Chronic Kidney Disease Staging per NKF: Stage I & II GFR >=60 Normal to Mildly Decreased Stage III GFR 30-59 Moderately Decreased Stage IV GFR 15-29 Severely Decreased Stage V GFR <15 Very Little GFR Left ESRD GFR <15 on TERMINAL GAUGER SUPERVISOR Lab Order: Liver Profile; SPEC'10/14/16 09:57 Test: AST/SGOT; Value: 13; Range: 15-37; Abnormal: Below low normal; Units: U/L; Status: F Test: ALT/SGPT; Value: 17; Range: 12-78; Units: U/L; Status: F Test: ALKALINE PHOSPHATASE; Value: 156; Range: 45-117; Abnormal: Above high normal; Units: U/L; Status: F Test: BILIRUBIN,TOTAL; Value: 0.5; Range: 0.2-1.0; Units: MG/DL; Status: F Test: BILIRUBIN,DIRECT; Value: 0.2; Range: 0.0-0.2; Units: MG/DL; Status: F Test: TOTAL PROTEIN; Value: 6.6; Range: 6.4-8.2; Units: GM/DL; Status: F Test: ALBUMIN; Value: 3.1; Range: 3.2-5.2; Abnormal: Below low normal; Units: GM/DL; Status: F Test: ALBUMIN/GLOBULIN RATIO; Value: 0.89; Range: 1.00-1.93; Abnormal: Below low normal; Status: F Lab Order: Amylase; SPEC'10/14/16 09:57 Test: AMYLASE; Value: 84; Range: 25-115; Units: U/L; Status: F Lab Order: Lipase; SPEC'M 07/17 09:57 Test: LIPASE; Value: 246; Range: 73-393; Units: U/L; Status: F Lab Order: CIP; 10/14/16 09:57 Test: CPK CREATINE PHOSPHOKINASE; Value: 53; Range: 26-192; Units: U/L; Status: F Test: CK-MB VALUE MASS; Value: 1.7; Range: 0.0-3.6; Units: NG/ML; Status: F Test: MB/CK RELATIVE INDEX; Value: 3.20; Range: < OR =4; Status: F Test Note: ; DIAGNOSIS CRITERIA MMB ng/ml Relative Index (RI) NON-AMI < or = 5 N/A DELGADO ZONE > 5 < or = 4 AMI > 5 > 4 Lab Order: Troponin; 10/14/16 09:57 Test: TROPONIN I; Value: 0.11; Range: < 0.10; Abnormal: Above high normal; Units: NG/ML; Status: F Test Note: ; Troponin I Reference Interval for [employer] LOCI: 99th Percentile= 0.00-0.045 ng/ml Risk Stratification: <= 0.10 ng/ml Decreased Risk for Adverse Clinical Events. 0.10-1.50 ng/ml Increased Risk for Adverse Clinical Events. Evaluation of additional criterion and/or repeat testing in 2-6 hours is suggested to rule out myocardial damage. >= 1.50 ng/ml Indicative of Myocardial Injury. Lab Order: TSH with Free T4; 10/14/16 09:57 Test: THYROID STIMULATING HORMONE; Value: 12.700; Range: 0.358-3.740; Abnormal: Above high normal; Units: uIU/ML; Status: F Test: FREE T4; Value: 1.52; Range: 0.76-1.46; Abnormal: Above high normal; Units: NG/DL; Status: F Lab Order: Lactic Acid (Delgado tube on ice); 10/14/16 09:57 Test: LACTIC ACID LEVEL, LACTATE; Value: 3.9; Range: 0.4-2.0; Abnormal: Above upper panic limits; Units: MMOL/L; Status: F Lab Order: UA; 10/14/16 10:25 Test: APPEARANCE, URINE; Value: CLOUDY; Range: CLEAR; Abnormal: Above high normal; Status: F Test: COLOR, URINE; Value: YELLOW; Range: YELLOW; Status: F Test: PH,URINE; Value: 6.0; Range: 5.0-9.0; Units: UNITS; Status: F Test: SPECIFIC GRAVITY URINE AUTO; Value: 1.012; Range: 1.002-1.035; Status: F Test: PROTEIN, URINE AUTO; Value: 2+; Range: NEGATIVE; Abnormal: Above high normal; Units: mg/dL; Status: F Test: GLUCOSE, URINE (UA) AUTO; Value: 1+; Range: NEGATIVE; Abnormal: Above high normal; Units: mg/dL; Status: F Test: KETONE, URINE AUTO; Value: 1+; Range: NEGATIVE; Abnormal: Above high normal; Units: mg/dL; Status: F Test: UROBILINOGEN, URINE AUTO; Value: 2.0; Range: 0.0-2.0; Abnormal: Above high normal; Units: mg/dL; Status: F Test: BILIRUBIN, URINE AUTO; Value: NEGATIVE; Range: NEGATIVE; Status: F Test: NITRITE, URINE AUTO; Value: NEGATIVE; Range: NEGATIVE; Status: F Test: LEUKOCYTE ESTERASE, URINE AUTO; Value: 3+; Range: NEGATIVE; Abnormal: Above high normal; Status: F Test: BLOOD, URINE BLOOD; Value: 1+; Range: NEGATIVE; Abnormal: Above high normal; Status: F Test: WBC, URINE AUTO; Value: TNTC; Range: 0-3; Abnormal: Above high normal; Units: /HPF; Status: F Test: RBC, URINE AUTO; Value: 27; Range: 0-3; Abnormal: Above high normal; Units: /HPF; Status: F Test: BACTERIA, URINE AUTO; Value: NEGATIVE; Range: NEGATIVE; Status: F Test: SQUAMOUS EPITHELIAL CELL UR AU; Value: 1; Range: 0-6; Units: /HPF; Status: F Test: MUCUS, URINE; Value: SMALL; Range: NEGATIVE; Status: F Test: HYALINE CAST, URINE AUTO; Value: 5; Range: 0-1; Units: /LPF; Status: F Lab Order: MAGNESIUM LEVEL; SPEC'M 10/14/16 09:57 Test: MAGNESIUM LEVEL; Value: 1.8; Range: 1.8-2.4; Units: MG/DL; Status: F Lab Order: PLATELET ESTIMATE; SPEC'M 10/14/16 09:57 Test: PLATELET ESTIMATE; Value: INCREASED; Range: NORMAL; Status: F Lab Order: LACTIC ACID LEVEL, LACTATE; SPEC'M 10/14/16 13:36 Test: LACTIC ACID LEVEL, LACTATE; Value: 2.1; Range: 0.4-2.0; Abnormal: Above high normal; Units: MMOL/L; Status: F Lab Order: Fingerstick Blood Sugar; SPEC'M 10/14/16 13:19 Test: BEDSIDE GLUCOSE; Value: 321; Range: 83-110; Abnormal: Above high normal; Units: MG/DL; Status: F Radiology Order: Chest, 1 View Test: Chest, 1 View REASON FOR EXAMINATION: Syncope; Portable chest x-ray: Sitting AP view.; ; History: Syncope.; ; Findings: Right hemidiaphragm remains slightly elevated and there is some stable; pleural thickening along the right lower lateral chest wall. Fissural thickening; is seen in the minor fissure. Mild cardiomegaly is observed prior sternotomy; wires are seen. Pulmonary vasculature is not increased. No new infiltrate; seen.; ; Impression:; ; Mild cardiomegaly. Elevated right hemidiaphragm with some pleural thickening or; fluid. Findings unchanged from 11/09/2016.; ; ; Signed by; Tim Montelongo MD 10/14/2016 02:05 P; Radiology Order: CT ABD & PELVIS: No Contrast Test: CT ABD & PELVIS: No Contrast REASON FOR EXAMINATION: abdl pain; CT abdomen and pelvis without IV or oral contrast:; ; History: Lower abdominal pain. Comparison CT study is from May 09, 2015.; ; Findings: Digital shuttle operator radiograph shows an unremarkable bowel gas pattern.; There is a small right pleural effusion noted. Some discoid atelectasis is seen; in the right base. Mitral annular calcification is noted in the enlarged heart.; There is a hiatal hernia. There are granulomatous calcifications in the spleen.; An accessory splenule is noted. No focal hepatic lesion is seen. The right; kidney is surgically absent. There is no evidence of hydronephrosis in the left; kidney. There is however a large left renal calculus at mid pole position; measuring 11 mm. No ureteral stone is seen. There is left colonic; diverticulosis without CT evidence of diverticulitis. The patient is status post; hysterectomy. Urinary bladder is unremarkable. There is postoperative fibrosis; in the anterior abdominal wall centrally. There is evidence of prior ventral; hernia repair. No pancreatic abnormality is seen. No adrenal lesion is observed; on either side. There are clips in the gallbladder fossa post cholecystectomy.; ; Impression:; ; Postoperative changes including cholecystectomy, hysterectomy, right nephrectomy,; ventral hernia repair. Right pleural effusion. Hiatal hernia. Intrarenal; nephrolithiasis left kidney with an 11 mm stone. No hydronephrosis.; ; ; Signed by; Tim Montelongo MD 10/14/2016 02:05 P; Radiology Order: CT Head Without Contrast Test: CT Head Without Contrast REASON FOR EXAMINATION: Syncope; Head CT without contrast:; ; History: Syncope.; ; Findings: Digital lateral shuttle operator radiograph is unremarkable. Bone window; settings demonstrate an intact bony calvarium. Vascular calcification is noted.; The visualized paranasal sinuses are clear. No intraorbital abnormality is; appreciated.; ; There is diffuse cerebral atrophy. Concordant ventricular enlargement is seen.; There is no evidence of intracranial hemorrhage. No mass, infarct, extra-axial; fluid collection or midline shift is seen.; ; Impression:; ; Diffuse atrophy and vascular calcification. No acute intracranial abnormality.; ; ; Signed by; Tim Montelongo MD 10/14/2016 02:05 P; Outcome: 11:07 Decision to Hospitalize by Provider. 15:43 Discharge Assessment: patient administered narcotics - no. The following High Risk [facility] Discharge criteria are identified: None. Admitted to PCU accompanied by nurse, accompanied by tech. Condition: good Condition: stable Condition: improved. CT Study completed. Property :Personal belongings accompany Pt. 15:46 Patient left the ED. [facility] Signatures: Dispatcher [employer] EDMS Cornell Michel MD MD ml Cierra Avila RN RN [facility] Qi Garland, Shahla Mendez,RN RN jo3 Sayra Boland, MAC OPERATOR MAC OPERATOR ar3 Hardy, Chayito, MAC OPERATOR MAC OPERATOR ct3 Jeb Hernandezia dem1 Shahla Lopez,RN RN js13 Adin Hooks RN RN mbMaira Saeed Diane dm19 Corrections: (The following items were deleted from the chart) 08:26 08:24 BP 91 / 53; Pulse 93bpm; Resp 18bpm; Pulse Ox 96%; Temp 97.4F Temporal; 132 kg ct3 Measured; Height 5 ft. 1 in. Reported; BMI: 54.9; Pain 3/10; ct3 10:03 10:00 MAGNESIUM LEVEL+LAB sent. jo3 EDMS 10:18 09:27 Assisted with urinal. Repositioned patient. dem1 dem1 Chart Complete MTDD
--- NOTE | 2016-10-17 11:19 | EDDOCDS ---
Physician Documentation [facility] Name: Valeria Weir Age: 81 yrs Sex: Female : 1935 Arrival Date: 10/14/2016 Time: 08:08 Bed Admit Hold Private MD: Frank Lorenz A. Disposition: 10/14 12:03 Critical Care:. ml Disposition: 10/14/16 11:07 Hospitalization ordered by Nasim Seo for Inpatient Admission. Preliminary diagnosis are Vomiting - elevated lactic acid; elevated troponin, Generalized abdominal pain, Cystitis, Sepsis, unspecified organism. - Bed requested for PCU. - Status is Inpatient Admission. [facility] - Condition is Stable. - Problem is new. - Symptoms are unchanged. Historical: - Allergies: cefadroxil; Ciprofloxacin; SUCCINYLCHOLINE; - Home Meds: 1. acyclovir 800 mg Oral tab 1 tab 5 times per day started 10/08/16 2. aspirin 325 mg Oral tab 1 tab once daily 3. atorvastatin 10 mg oral tab 1 tab once daily 4. escitalopram oxalate 5 mg oral tab 1 tab once daily 5. glimepiride 2 mg Oral tab 1 tab three times a day 6. levothyroxine 112 mcg Oral tab 1 tab once daily 7. lisinopril 10 mg Oral tab 1 tab once daily 8. magnesium oxide 400 mg Oral tab daily 9. metoprolol succinate oral 10. metoprolol tartrate 50 mg Oral tab 1 tab 2 times per day 11. Vassar 5-325 mg Oral tab 1 tab every 4-6 hours 12. omeprazole 20 mg Oral cpDR 1 cap once daily 13. 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 No barriers to communication noted, The patient speaks fluent Nepali. - Family history: Not pertinent. - : The pt / caregiver states he / she is not on anticoagulants. Home medication list is obtained from the patient, family members. - Exposure Risk Screening:: Recent exposure to shingles, Patient has shingles outbreak now. Vital Signs: 08:19 Weight 88.9 kg / 195.99 lbs; Height 5 ft. 1 in. (154.94 cm); 13 08:19 BP 91 / 53; Pulse 93; Resp 18; Temp 97.4(TE); Pulse Ox 96% ; Weight 132 kg / 291.01 lbs ct3 (M); Height 5 ft. 1 in. (154.94 cm) (R); Pain 3/10; 08:34 BP 91 / 55 (auto/); js13 08:34 Pulse 90 MON; Resp 16; Pulse Ox 95% on R/A; 13 08:47 BP 95 / 52 (auto/); 13 08:47 Pulse 82 MON; Resp 16; Pulse Ox 95% on R/A; 13 09:02 BP 106 / 52 (auto/); 13 09:02 Pulse 82 MON; Resp 16; Pulse Ox 97% on R/A; 13 09:32 BP 104 / 42 (auto/); 13 09:32 Pulse 86 MON; Resp 16; Pulse Ox 98% on R/A; 13 10:02 BP 159 / 66 (auto/); 13 10:02 Pulse 88 MON; Resp 16; Pulse Ox 98% on R/A; 13 10:17 BP 186 / 74 (auto/); 13 10:17 Pulse 84; Resp 16; Pulse Ox 97% ; 13 12:21 BP 168 / 84 RA Supine (man/reg); mb9 12:43 Pulse 100 MON; Pulse Ox 95% ; mb9 13:01 Pulse 98 MON; Pulse Ox 94% ; mb9 13:27 Pulse 106 MON; Pulse Ox 95% ; mb9 13:34 Pulse 100 MON; Pulse Ox 94% ; mb9 13:46 Pulse 102 MON; Pulse Ox 95% ; mb9 13:53 Pulse 98 MON; Pulse Ox 94% ; mb9 14:04 BP 136 / 62 RA Supine (man/reg); Pulse 102 MON; Pulse Ox 95% ; mb9 14:12 Pulse 102 MON; Pulse Ox 96% ; mb9 14:26 BP 136 / 64; Pulse 100 MON; Resp 18; Temp 97.3(TE); Pulse Ox 95% ; Pain 0/10; mb9 08:19 Body Mass Index 37.03 (88.90 kg, 154.94 cm) [facility] MDM: 08:35 NS 0.9% 1000 ml IV at bolus once ordered. js13 08:42 [facility] [place] Payment Agreement was scanned into SiBEAM and attached to record. [id number] 09:00 Financial registration complete. [email or web address] 09:09 IV Saline Lock ordered. ml 09:10 CBC with Diff Ordered. EDMS 09:10 MED Profile Ordered. EDMS 09:10 Liver Profile Ordered. EDMS 09:10 Amylase Ordered. EDMS 09:10 Lipase Ordered. EDMS 09:10 CIP Ordered. EDMS 09:10 Troponin Ordered. EDMS 09:10 TSH with Free T4 Ordered. EDMS 09:11 Chest, 1 View Ordered. EDMS 09:11 ECG WITH READING ER PHYS+CARDIAG ordered. EDMS 09:11 Lactic Acid (Delgado tube on ice) Ordered. EDMS 09:11 Straight cath ordered. ml 09:12 UA Ordered. EDMS 09:12 Urine Culture Ordered. EDMS 09:12 CT ABD & PELVIS: No Contrast Ordered. EDMS 09:13 Staff Anesthesiologist/Pulse Ox/q 15 min VS ordered. ml 09:13 Rhythm Strip to chart ordered. ml 09:14 CT Head Without Contrast Ordered. EDMS 09:33 NS 0.9% 1000 ml IV at bolus once ordered. ml 10:04 MAGNESIUM LEVEL Ordered. EDMS 10:06 BED REQUEST+ADM ordered. EDMS 10:24 DIFFERENTIAL NO CHARGE Ordered. EDMS 10:24 PLATELET ESTIMATE Ordered. EDMS 10:37 CBC with Diff Reviewed. ml 10:37 MED Profile Reviewed. ml 10:37 Liver Profile Reviewed. ml 10:37 Troponin Reviewed. ml 10:37 TSH with Free T4 Reviewed. ml 10:37 Lactic Acid (Delgado tube on ice) Reviewed. ml 10:37 Amylase Reviewed. ml 10:37 Lipase Reviewed. ml 10:37 CIP Reviewed. ml 10:37 MAGNESIUM LEVEL Reviewed. ml 10:37 PLATELET ESTIMATE Reviewed. ml 10:37 CT ABD & PELVIS: No Contrast Reviewed. ml 10:53 NS 0.9% 1000 ml IV at bolus once ordered. js13 11:04 vancomycin (loading dose for pt. wt. >= 80kg) 2000 mg IVPB once ordered. ml 11:04 Merrem 1 grams IV at bolus once ordered. ml 11:09 -Blood Culture (Adults Only), peripheral from different site, or from device/port/PICC ml etc. if present ordered. 11:10 -Blood Culture Ordered. EDMS 11:13 -Blood Culture (Adults Only), peripheral from different site, or from device/port/PICC ar3 etc. if present complete. 11:14 BLOOD CULTURES Ordered. EDMS 11:51 NO ADDED SALT DIET ordered. EDMS 11:51 CARDIAC INJURY PROFILE Ordered. EDMS 11:52 CARDIAC INJURY PROFILE Ordered. EDMS 11:52 TROPONIN Ordered. EDMS 11:52 TROPONIN Ordered. EDMS 11:53 Admission / Observation Status ordered. EDMS 12:16 ELECTROCARDIOGRAM ADULT ordered. EDMS 12:16 ELECTROCARDIOGRAM ADULT ordered. EDMS 12:16 ELECTROCARDIOGRAM ADULT ordered. EDMS 12:23 LACTIC ACID LEVEL, LACTATE Ordered. EDMS 15:02 NovoLOG 6 units Sub-Q once; administer within 5-10 min before a meal/food and no later mb9 than at the start of the meal/snack ordered. 16:02 T-Sheet-- Draft Copy was scanned into SiBEAM and attached to record. klr 10/15 09:54 ECG/EKG was scanned into SiBEAM and attached to record. gb 09:55 Radiology Report was scanned into SiBEAM and attached to record. gb Point of Care Testing: Blood Glucose: 10/14 13:21 Blood Glucose: 321 mg/dL; mb9 Ranges: Administered Medications: 08:35 Drug: NS 0.9% 1000 ml [sodium chloride 0.9 % intravenous solution] Route: IV; Rate: js13 bolus; Site: left antecubital; 10:53 Follow up: IV Status: Completed infusion; IV Intake: 1000ml js13 10:01 Drug: NS 0.9% 1000 ml [sodium chloride 0.9 % intravenous solution] Route: IV; Rate: js13 bolus; Site: left antecubital; 12:00 Follow up: IV Intake: 1000ml mb9 10:53 Drug: NS 0.9% 1000 ml [sodium chloride 0.9 % intravenous solution] Route: IV; Rate: js13 bolus; Site: left antecubital; 14:10 Follow up: IV Intake: 1000ml mb9 12:00 Drug: vancomycin (loading dose for pt. wt. >= 80kg) 2000 mg [vancomycin 1,000 mg mb9 intravenous injection] {Note: Dose split into 2 250ml bags. 1st running at this time. .} Route: IVPB; Site: left antecubital; 14:10 Follow up: IV Intake: 500ml mb9 14:20 Drug: Merrem 1 grams Route: IV; Rate: bolus; Site: left antecubital; mb9 15:21 Drug: NovoLOG 6 units Route: Sub-Q; Site: right upper arm; mb9 Critical Care Time: 12:03 Critical care time: Bedside Care: 120 minutes, Consultation: 20 minutes. Total time: ml 140 minutes Signatures: Dispatcher [employer] EDMS Cornell Michel MD MD ml Cierra Avila, RN RN kpj Qi Garland, Reg Reg gb Sayra Boland, OPERATIONS SUPPORT SPECIALIST OPERATIONS SUPPORT SPECIALIST ar3 Shahla LopezRN RN js13 Adin HooksRN RN mb9 Maira Merritt Diane [id number] The chart was reviewed and I authenticate all verbal orders and agree with the evaluation and treatment provided.Corrections: (The following items were deleted from the chart) 10:03 09:11 MAGNESIUM LEVEL+LAB ordered. EDMS EDMS Attachments: 08:42 [facility] Payment Agreement [email or web address] 16:02 T-Sheet-- Draft Copy r 10/15 09:54 ECG/EKG Chart Complete MTDD
[2016-10-17 12:00] VITALS: BP 156/72
[2016-10-17] MEDS ORDERED: SLF 3 ML SYR IV PRN (13:30)
[2016-10-17 14:00] VITALS: BP_SYST 110; BP_SYST 98; BP_DIAS 62
[2016-10-17] MEDS: SLF 3 ML SYR IV SCH ×2 (14:00→21:20)
--- NOTE | 2016-10-17 15:47 | IPNPDOC ---
Assessment/Plan Date Seen The patient was seen on 10/17/16. Problems Problems: (1) Sepsis Status: Resolved Problem Text: Likely secondary to urinary tract infection The patient has been on meropenem, and will complete her trial of antibiotics tomorrow The patient's sepsis has resolved and she is feeling much better today. (2) Elevated troponin Status: Acute Response to Treatment: Improving Problem Text: Troponin level peaked at 0.47 with subtle EKG changes noted The patient's elevated troponin level may likely be secondary to volume depletion and demand ischemia from sepsis She denies any chest pain, other than the mild post operative ache The patient was evaluated by cardiology, she will follow-up with Dr. Bates as an outpatient for a nuclear stress tests to evaluate for any reversible ischemia prior to her point for left-sided breast surgery with Dr. Parada. (3) Breast cancer Status: Acute Problem Text: Patient was to have surgery to remove breast but had an abnormal stress test and ended up with CABG in July, she is to see dr parada to reschedule surgery next week However, she will need to see Dr. Bates as an outpatient for a nuclear stress test to evaluate from a cardiac perspective prior to any surgical intervention. (4) Constipation due to pain medication Status: Resolved Response to Treatment: Stable (5) Shingles Status: Chronic Response to Treatment: Stable Problem Text: * continue antiviral medications (6) CAD (coronary artery disease) Status: Chronic Problem Text: s/p CABG in July 2016 Continue aspirin, metoprolol, atorvastatin Cardiology on board, and has recommended an outpatient follow-up for nuclear stress test given the elevated troponins here Patient with no active chest pain, shortness of breath at this time. (7) Hyponatremia Status: Resolved (8) Hypokalemia Status: Resolved (9) DEMETRIO (acute kidney injury) Status: Resolved Response to Treatment: Stable Plan / VTE VTE Prophylaxis Ordered?: Yes Subjective Review of Systems CC/HPI The patient is a 81-year-old female admitted with a reason for visit of Syncope. General: Denies: Chills, Night Sweats Constitutional: Denies: Chills, Fever Eyes: Denies: Pain, Vision change Skin: Denies: Lesions, Rash Pulmonary: Denies: Cough, Dyspnea Cardiovascular: Denies: Chest Pain, Palpitations Gastrointestinal: Denies: Nausea, Vomiting Hematologic: Denies: Bleeding Excessively, Bruising Musculoskeletal: Denies: Back Pain, Neck Pain Objective Physical Examination General Exam: Positive: Alert, Cooperative, No Acute Distress Eye Exam: Positive: Conjunctiva & lids normal, EOMI, Negative: Sclera icteric Chest Exam: Positive: Clear to auscultation, Normal air movement Heart Exam: Positive: Normal S1, Normal S2, Rate Normal, Regular Rhythm, Negative: Murmurs, Rubs Abdomen Exam: Positive: Normal bowel sounds, Soft, Negative: Hepatospenomegaly, Tenderness Extremity Exam: Positive: Normal pulses, Negative: Clubbing, Cyanosis, Edema Vital Signs/I&O Vital Signs Date Time Temp Pulse Resp B/P Pulse Ox O2 Delivery O2 Flow Rate FiO2 10/17/16 14:00 97.4 79 18 98/62 97 Room Air I&O- Last 24 Hours up to 6 AM 10/17/16 06:00 Intake Total 2570 ml Output Total 2225 ml Balance 345 ml Laboratory Data Labs 24H Laboratory Tests 2 10/16/16 16:56: Bedside Glucose (Misc Panel) 108 10/16/16 20:44: Bedside Glucose (Misc Panel) 123H 10/17/16 04:56: Albumin 2.5L, Blood Urea Nitrogen 8, Creatinine 0.77, Sodium Level 136, Potassium Level 4.7, Chloride Level 101, Carbon Dioxide Level 24, Anion Gap 11, Calcium Level 8.1L, Glomerular Filtration Rate > 60.0, Magnesium Level 1.6L, Phosphorus Level 1.6L 10/17/16 11:48: Bedside Glucose (Misc Panel) 109 CBC/BMP Laboratory Tests 10/17/16 04:56 Anion Gap 11, Red Blood Count 3.76 L, Mean Corpuscular Volume 92.1, Mean Corpuscular Hemoglobin 30.9, Mean Corpuscular Hemoglobin Concent 33.5, Red Cell Distribution Width 14.8 H FSBS Laboratory Tests Test 10/16/16 16:56 10/16/16 20:44 10/17/16 11:48 Range/Units Bedside Glucose (Misc Panel) 108 123 109 83-110 MG/DL Microbiology Microbiology 10/14/16 Blood Culture - Preliminary, Resulted No Growth after 72 hours. All specime... 10/14/16 Blood Culture - Preliminary, Resulted No Growth after 72 hours. All specime... 10/17/16 MRSA Screen, Received Pending 10/14/16 MRSA Screen - Final, Complete 10/14/16 Urine Culture - Final, Complete Klebsiella Pneumoniae FENG DANIELS MD Oct 17, 2016 15:47
[2016-10-17 20:00] VITALS: BP 140/82
[2016-10-17] MEDS: ATORVASTATIN 10 MG TAB PO SCH (21:19)
[2016-10-18] VITALS: BP 112/63
[2016-10-18] MEDS: MEROPENEM INJ 1 GM in D5W MINI-BAG PLUS 100 ML IV SCH (01:55)
[2016-10-18 04:00] VITALS: BP_SYST 86
[2016-10-18] MEDS: LEVOTHYROXINE 0.125 MG TAB (125 MCG) PO SCH (05:30)
[2016-10-18] MEDS: SLF 3 ML SYR IV SCH (05:31)
[2016-10-18] MEDS: ACYCLOVIR 200 MG CAPSULE PO SCH ×2 (05:31→08:29)
[2016-10-18 06:03] LABS: MEAN CORPUSCULAR HEMOGLOBIN 30.4 pg (27.0-33.0); MEAN CORPUSCULAR HGB CONC 33.8 g/dl (32.0-36.5); MEAN CORPUSCULAR VOLUME 89.8 fl (80.0-96.0); RED CELL DISTRIBUTION WIDTH 14.7 % (11.5-14.5); WHITE BLOOD COUNT 7.1 K/mm3 (4.0-10.0)
[2016-10-18 06:19] LABS: ALBUMIN 2.7 GM/DL (3.2-5.2); ANION GAP 9 MEQ/L (8-16); BLOOD UREA NITROGEN 9 MG/DL (7-18); CARBON DIOXIDE LEVEL 27 MEQ/L (21-32); CHLORIDE LEVEL 97 MEQ/L (98-107); CREATININE FOR GFR 0.75 MG/DL (0.55-1.02); GLOMERULAR FILTRATION RATE > 60.0 (>32); GLUCOSE, FASTING 145 MG/DL (83-110); MAGNESIUM LEVEL 1.6 MG/DL (1.8-2.4); PHOSPHORUS LEVEL 1.8 MG/DL (2.5-4.9); POTASSIUM SERUM 4.1 MEQ/L (3.5-5.1); SODIUM LEVEL 133 MEQ/L (136-145)
[2016-10-18 08:00] VITALS: BP 124/72
[2016-10-18] MEDS: ENOXAPARIN 30 MG/0.3 ML SYR (J1650) SC SCH (08:26)
[2016-10-18] MEDS: ESCITALOPRAM OXALATE 5MG TABLET (LEXAPRO) PO SCH (08:27)
[2016-10-18] MEDS: HumaLOG INSULIN (NovoLOG) PER UNIT SC SCH (08:27)
[2016-10-18] MEDS: ASPIRIN 325 MG TAB PO SCH (08:27)
[2016-10-18 08:28] VITALS: BP 134/74
[2016-10-18] MEDS: METOPROLOL TART 50 MG TAB PO SCH (08:28)
[2016-10-18] MEDS: SODIUM BICARBONATE 325 MG TAB PO SCH (08:28)
[2016-10-18] MEDS: OMEPRAZOLE 20 MG CAP PO SCH (08:28)
[2016-10-18] MEDS: MAGNESIUM OXIDE 400 MG TAB (MAG-OX) PO SCH (08:28)
[2016-10-18] MEDS: MULTIVITAMINS/MINERALS THERAP 1 TAB PO SCH (08:28)
[2016-10-18] MEDS: NYSTATIN 100,000 UNITS/GM TOPICAL PWD 15 GM TOP SCH (08:29)
--- NOTE | 2016-10-18 18:05 | DS.PDOC ---
Discharge Summary General Date of Admission Oct 16, 2016 at 10:30 Date of Discharge Oct 18, 2016 at 10:54 Specialist/Consultants Involve Dr. Bates of cardiology,Dr. Coelho of Nephrology Discharge Summary PROCEDURES PERFORMED DURING STAY: None. COMPLICATIONS/CHIEF COMPLAINT: Syncope ADMISSION DIAGNOSES: 1. . Acute kidney injury 2. . Elevated troponins 3. . Urinary tract infection DISCHARGE DIAGNOSES: 1. . Acute kidney injury 2. . Elevated troponins 3. . Urinary tract infection HISTORY OF PRESENT ILLNESS: 81-year-old female with past medical history of CAD status post CABG in July 2016, left breast cancer, diabetes mellitus, hypertension, dysrhythmia, CK D presented to the ER with a chief complaint of syncope. The patient stated that she was sitting on the toilet straining after she was given an enema by her and and subsequently had a syncopal episode. The patient was subsequently brought to the ER for further evaluation and management. In the ER, a CT scan of the head revealed no acute abnormalities. However, the patient was noted to have an elevated troponin level at 0.11. In addition, the patient also was noted to have an acute kidney injury, with lab work also suggestive of leukocytosis and a UA consistent with a urinary tract infection. The patient was subsequently admitted to [facility] under the hospitalist service. The patient was given IV fluid hydration and started on antibiotics and her mentation improved. The patient's serum creatinine returned back to baseline. The patient's syncopal episode was likely secondary to a vasovagal event. As for the patient's elevated troponin, this was likely secondary to volume depletion and demand ischemia. The troponin level peaked at 0.47. The patient was evaluated by Dr. Bates of cardiology, and she was advised to follow-up as an outpatient to have a nuclear stress studies done for further evaluation of the elevated troponin. DISCHARGE MEDICATIONS: Please see below. ALLERGIES: Please see below. PHYSICAL EXAMINATION ON DISCHARGE: VITAL SIGNS: Please see below. GENERAL: Awake, alert, in no acute distress HEENT: Normocephalic, atraumatic NECK: No JVD CARDIOVASCULAR EXAMINATION: Normal rate, normal S1, S2 RESPIRATORY EXAMINATION: Clear to auscultation bilaterally ABDOMINAL EXAMINATION: Off, nontender, nondistended EXTREMITIES: No erythema, no tenderness LABORATORY DATA: Please see below. IMAGING: Head CT without contrast: History: Syncope. Findings: Digital lateral fraud analyst radiograph is unremarkable. Bone window settings demonstrate an intact bony calvarium. Vascular calcification is noted. The visualized paranasal sinuses are clear. No intraorbital abnormality is appreciated. There is diffuse cerebral atrophy. Concordant ventricular enlargement is seen. There is no evidence of intracranial hemorrhage. No mass, infarct, extra-axial fluid collection or midline shift is seen. Impression: Diffuse atrophy and vascular calcification. No acute intracranial abnormality. CT abdomen and pelvis without IV or oral contrast: History: Lower abdominal pain. Comparison CT study is from May 09, 2015. Findings: Digital fraud analyst radiograph shows an unremarkable bowel gas pattern. There is a small right pleural effusion noted. Some discoid atelectasis is seen in the right base. Mitral annular calcification is noted in the enlarged heart. There is a hiatal hernia. There are granulomatous calcifications in the spleen. An accessory splenule is noted. No focal hepatic lesion is seen. The right kidney is surgically absent. There is no evidence of hydronephrosis in the left kidney. There is however a large left renal calculus at mid pole position measuring 11 mm. No ureteral stone is seen. There is left colonic diverticulosis without CT evidence of diverticulitis. The patient is status post hysterectomy. Urinary bladder is unremarkable. There is postoperative fibrosis in the anterior abdominal wall centrally. There is evidence of prior ventral hernia repair. No pancreatic abnormality is seen. No adrenal lesion is observed on either side. There are clips in the gallbladder fossa post cholecystectomy. Impression: Postoperative changes including cholecystectomy, hysterectomy, right nephrectomy , ventral hernia repair. Right pleural effusion. Hiatal hernia. Intrarenal nephrolithiasis left kidney with an 11 mm stone. No hydronephrosis. VTE Prophylaxis ordered?: Yes DISCHARGE CONDITION: Medically stable DISPOSITION: 01 Home, Self-Care ACTIVITY: As tolerated DIET: 2 g low sodium diet ITEMS TO FOLLOWUP ON OUTPATIENT: 1. . Follow-up with cardiology for further evaluation of CAD 2. . Follow-up with urology for further evaluation of 11 mm kidney stone noted on CAT scan of abdomen 3. . Follow-up with primary care physician within one to 2 weeks 4. Follow-up with Dr. Castillo of surgery for left-sided breast surgery TIME SPENT ON DISCHARGE: Greater than 30 minutes. Vital Signs/I&Os Vital Signs Date Time Temp Pulse Resp B/P Pulse Ox O2 Delivery O2 Flow Rate FiO2 10/18/16 08:28 72 134/74 10/18/16 08:00 Room Air 10/18/16 08:00 96.7 18 96 I&O- Last 24 Hours up to 6 AM 10/18/16 06:00 Intake Total 1540 ml Output Total 2000 ml Balance -460 ml Laboratory Data Labs 24H Laboratory Tests 2 10/17/16 20:58: Bedside Glucose (Misc Panel) 123H 10/18/16 05:32: Albumin 2.7L, Blood Urea Nitrogen 9, Creatinine 0.75, Sodium Level 133L, Potassium Level 4.1, Chloride Level 97L, Carbon Dioxide Level 27, Anion Gap 9, Calcium Level 8.0L, Glomerular Filtration Rate > 60.0, Magnesium Level 1.6L, Phosphorus Level 1.8L CBC/BMP Laboratory Tests 10/18/16 05:32 Anion Gap 9, Red Blood Count 3.93 L, Mean Corpuscular Volume 89.8, Mean Corpuscular Hemoglobin 30.4, Mean Corpuscular Hemoglobin Concent 33.8, Red Cell Distribution Width 14.7 H FSBS Laboratory Tests Test 10/17/16 20:58 Range/Units Bedside Glucose (Misc Panel) 123 83-110 MG/DL Microbiology Microbiology 10/14/16 Blood Culture - Preliminary, Resulted No Growth after 72 hours. All specime... 10/14/16 Blood Culture - Preliminary, Resulted No Growth after 72 hours. All specime... 10/17/16 MRSA Screen - Final, Complete 10/14/16 MRSA Screen - Final, Complete 10/14/16 Urine Culture - Final, Complete Klebsiella Pneumoniae Medications Scheduled Acyclovir (Acyclovir) 800 Mg Tab 800 MG PO 5XD Aspirin (Aspirin) 325 Mg Tab 325 MG PO DAILY Atorvastatin Calcium (Atorvastatin Calcium) 10 Mg Tab 10 MG PO QHS Escitalopram Oxalate (Lexapro) 5 Mg Tab 5 MG PO DAILY Glimepiride (Glimepiride) 2 Mg Tab 2 MG PO TID Levothyroxine Sodium (Levoxyl) 112 Mcg Tab 112 MCG PO DAILY Lisinopril (Lisinopril) 10 Mg Tab 10 MG PO DAILY Magnesium Oxide (Magnesium) 400 Mg Tab 400 MG PO BID Metoprolol Tartrate (Metoprolol Tartrate) 50 Mg Tab 50 MG PO BID Multivitamins *[facility] STOCKED* (Thera M Plus *[facility] STOCKED*) 1 Tab Tab 1 TAB PO DAILY Omeprazole (Prilosec) 20 Mg Cap 20 MG PO DAILY Potassium Citrate (Potassium Citrate ER) 15 Meq Tab 15 MEQ PO DAILY Sodium Bicarbonate (Sodium Bicarbonate) 325 Mg Tab 325 MG PO DAILY Scheduled PRN Acetaminophen/Hydrocodone ([place] 5-325 mg) 1 Tab Tab 1 TAB PO Q4H PRN PRN PAIN Ondansetron (Ondansetron Odt) 4 Mg Tab 4 MG PO TID PRN PRN NAUSEA Allergies Coded Allergies: Mivacurium (Verified Allergy, Unknown, 01/08/13) Naproxen (Verified Allergy, Unknown, PT DOESN'T REMEMBER, 05/09/15) HAS RECEIVED TORADOL IN THE PAST w/o PROBLEM Quinolones (Verified Allergy, Unknown, RASH, 05/09/15) FACE, NECK, & ARMS TURNED RED - CIPRO Sulfa Drugs (Verified Allergy, Unknown, ??, 05/09/15) Sulfa Drugs Cross Reactors (Verified Allergy, Unknown, ??, 05/09/15) Hydrocodone (Verified Adverse Reaction, Intermediate, VICODIN - PALPITATIONS, INCREASED HR, 01/08/13) Succinylcholine (Verified Adverse Reaction, Intermediate, "PARALYZED TWICE ", 01/08/13) Cephalosporins (Verified Adverse Reaction, Mild, INCREASED HR, ROSY, 01/08) DURICEF-INFO FROM 2002 FENG DANIELS MD Oct 18, 2016 18:05
== END 2016-10-18 10:54 | disposition home or self-care (01) | DRG 872 ==
LOC: M ED 08:08 → M ED INP 11:48 → M PCU 15:50 → M ICU 21:25 → OBSVTOIN 10-16 10:30 → M PCU 10-17 13:44
PROVIDERS: ADMIT Internal Medicine; ATTEND Internal Medicine
DX: A41.9 Sepsis, unspecified organism (principal); N39.0 Urinary tract infection, site not specified; N17.9 Acute kidney failure, unspecified; E87.2 Acidosis; E87.1 Hypo-osmolality and hyponatremia; B02.9 Zoster without complications; N20.0 Calculus of kidney; C50.912 Malignant neoplasm of unspecified site of left female breast; I25.10 Atherosclerotic heart disease of native coronary artery without angina pectoris; E11.9 Type 2 diabetes mellitus without complications; I10 Essential (primary) hypertension; K57.30 Diverticulosis of large intestine without perforation or abscess without bleeding; J84.10 Pulmonary fibrosis, unspecified; Z79.82 Long term (current) use of aspirin; Z79.899 Other long term (current) drug therapy; Z88.2 Allergy status to sulfonamides; Z88.8 Allergy status to other drugs, medicaments and biological substances; R55 Syncope and collapse; E78.5 Hyperlipidemia, unspecified; F32.9 Major depressive disorder, single episode, unspecified; K59.00 Constipation, unspecified; E03.9 Hypothyroidism, unspecified; K21.9 Gastro-esophageal reflux disease without esophagitis; H40.9 Unspecified glaucoma; Z88.5 Allergy status to narcotic agent; E83.42 Hypomagnesemia; E87.6 Hypokalemia; E83.39 Other disorders of phosphorus metabolism

== ENCOUNTER → 2016-11-10 | Day surgery (SDC) | payer MEDICARE ==
[~2016-11-10] VITALS: Ht 154.9 cm; Wt 87.1 kg
[~2016-11-10] MED LIST changes: +ACETAMINOPHEN TAB 650MG DOSE (2X325MG) PO PRN; +ACYC800T PO; +ASPI325T PO; +BUPIVACAINE HCL 0.25% 30 ML VIAL As Ordered ONE; +BUPIVACAINE HCL 0.25% 30 ML VIAL SC ONE; +ETOMIDATE INJ 20MG/10ML VIAL As Ordered ONE; -IMOD2TAB14 PO; +IMOD2TAB16 PO; +LABETALOL HCL 100 MG/20 ML VIAL As Ordered ONE; +LIDOCAINE 1% SDV INJ 30 ML VIAL As Ordered ONE; +LIDOCAINE 1% SDV INJ 30 ML VIAL XX ONE; +LIDOCAINE 2% INJ 100 MG/5 ML SDV (FOR ANES.) As Ordered ONE; +LOSA25TA8 PO; +LR 1,000 ML IV SCH; +METO50TA2 PO; +METOCLOPRAMIDE INJ 10MG/2ML VIAL (J2765) IV PRN; +MIDAZOLAM INJ 2 MG/2 ML VIAL (J2250) As Ordered ONE; +NORC5TAB PO; +NORCO, ANEXSIA 5/325MG TABLET (HYDROcodone/ACETAMINOPHEN) PO PRN; +ONDA4TAB6 PO; +ONDANSETRON 4MG/2ML VIAL (J2405) As Ordered ONE; +ONDANSETRON 4MG/2ML VIAL (J2405) IV PRN; +PERCOCET 5MG/325MG TAB PO PRN; +POTA4.25 PO; -PRIL20CA PO; +PRIL20CA9 PO; +PROPOFOL 200 MG/20 ML VIAL As Ordered ONE; +ROCURONIUM BROMIDE 50 MG/5 ML VIAL As Ordered ONE; +SUGAMMADEX SODIUM 500 MG/5 ML VIAL (BRIDION) As Ordered ONE; +VITMTA PO; +ePHEDrine SULFATE 25 MG/5 ML(5MG/ML) SYRINGE As Ordered ONE; +fentaNYL 100 MCG/2 ML INJECTION (J3010) IV PRN; +fentaNYL 250 MCG/5 ML INJECTION (J3010) As Ordered ONE
--- NOTE | 2016-11-10 10:44 | RO ---
DATE OF PROCEDURE: 11/10/2016 PREOPERATIVE DIAGNOSIS: Left breast cancer. POSTOPERATIVE DIAGNOSIS: Left breast cancer. OPERATIVE PROCEDURE: Left partial mastectomy. SURGEON: Lupillo Castillo MD ANESTHESIA: General. INDICATION FOR SURGERY: The patient is an 81-year-old woman who initially presented back in June 2016 with some left nipple retraction with some bloody discharge. An ultrasound showed a retroareolar mass and an ultrasound-guided needle biopsy was done. This revealed infiltrating ductal carcinoma, grade 3 of 3. Her estrogen and progesterone receptors were positive and her HER2/jean was negative. She was to be scheduled for surgery, but her preoperative evaluation disclosed significant coronary disease and she underwent a coronary artery bypass grafting as an urgent procedure. She has been healing well from that. She subsequently developed an attack of shingles involving the right side of the head and neck and this further delayed her procedure. She is now for a left partial mastectomy involving the central portion of the breast. DESCRIPTION OF PROCEDURE: The patient was placed under general endotracheal anesthesia. She was placed supine on the operating table with the left arm on an arm board. A small bump was placed beneath the left shoulder. The patient's left breast and chest wall were prepped and draped in a sterile fashion. An ellipse was outlined across the center of the breast using a skin marker. There was an approximately 2-3 cm nodule palpable just deep to the nipple and central portion of the areola. The ellipse outlined was approximately 10 cm wide x 20 cm in length. The skin was incised with a scalpel and the dissection was then carried down into the breast using the cautery. In this manner the entire central portion of the breast was excised. The resulting specimen was approximately 20 cm long x 10 cm wide x 4 cm thick. The specimen was marked using the margin marker system and this was then sent for permanent pathology. The wound was inspected and hemostasis was ensured with the cautery. The deeper tissues of the breast were approximated with interrupted simple sutures of #3-0 chromic. The skin edges were approximated with multiple buried sutures of #3-0 Vicryl and the skin edges were approximated with a running subcuticular #4-0 Vicryl and Steri-Strips. A dressing was applied. The patient tolerated the procedure well without apparent complication. She was awakened in the operating room, extubated and moved to the recovery room in stable condition. FILIPE
[2016-11-10 10:55] VITALS: BP 134/67
== END | disposition home or self-care (01) ==
LOC: M SDC 06:03
PROVIDERS: ATTEND Surgery
DX: C50.112 Malignant neoplasm of central portion of left female breast (principal); I10 Essential (primary) hypertension; I25.2 Old myocardial infarction; I25.10 Atherosclerotic heart disease of native coronary artery without angina pectoris; E11.9 Type 2 diabetes mellitus without complications; E78.5 Hyperlipidemia, unspecified; K21.9 Gastro-esophageal reflux disease without esophagitis; K44.9 Diaphragmatic hernia without obstruction or gangrene; E03.9 Hypothyroidism, unspecified; N28.9 Disorder of kidney and ureter, unspecified; D64.9 Anemia, unspecified; F32.9 Major depressive disorder, single episode, unspecified; D75.89 Other specified diseases of blood and blood-forming organs; Z88.2 Allergy status to sulfonamides; Z88.8 Allergy status to other drugs, medicaments and biological substances; Z79.82 Long term (current) use of aspirin; Z79.899 Other long term (current) drug therapy; Z17.0 Estrogen receptor positive status [ER+]
CPT/HCPCS: 19301; 88307; 88342; J2250; J2405; J3010

== ENCOUNTER → 2016-12-27 | Outpatient (REF) | payer MEDICARE ==
[~2016-12-27] MED LIST changes: -ACETAMINOPHEN TAB 650MG DOSE (2X325MG) PO PRN; -BUPIVACAINE HCL 0.25% 30 ML VIAL As Ordered ONE; -BUPIVACAINE HCL 0.25% 30 ML VIAL SC ONE; -ETOMIDATE INJ 20MG/10ML VIAL As Ordered ONE; -LABETALOL HCL 100 MG/20 ML VIAL As Ordered ONE; -LIDOCAINE 1% SDV INJ 30 ML VIAL As Ordered ONE; -LIDOCAINE 1% SDV INJ 30 ML VIAL XX ONE; -LIDOCAINE 2% INJ 100 MG/5 ML SDV (FOR ANES.) As Ordered ONE; -LR 1,000 ML IV SCH; -METOCLOPRAMIDE INJ 10MG/2ML VIAL (J2765) IV PRN; -MIDAZOLAM INJ 2 MG/2 ML VIAL (J2250) As Ordered ONE; -NORCO, ANEXSIA 5/325MG TABLET (HYDROcodone/ACETAMINOPHEN) PO PRN; -ONDANSETRON 4MG/2ML VIAL (J2405) As Ordered ONE; -ONDANSETRON 4MG/2ML VIAL (J2405) IV PRN; -PERCOCET 5MG/325MG TAB PO PRN; -PROPOFOL 200 MG/20 ML VIAL As Ordered ONE; -ROCURONIUM BROMIDE 50 MG/5 ML VIAL As Ordered ONE; -SUGAMMADEX SODIUM 500 MG/5 ML VIAL (BRIDION) As Ordered ONE; -ePHEDrine SULFATE 25 MG/5 ML(5MG/ML) SYRINGE As Ordered ONE; -fentaNYL 100 MCG/2 ML INJECTION (J3010) IV PRN; -fentaNYL 250 MCG/5 ML INJECTION (J3010) As Ordered ONE
== END ==
LOC: M LAB REF 17:00
PROVIDERS: ATTEND Internal Medicine Nephrology
DX: N39.0 Urinary tract infection, site not specified (principal)

== ENCOUNTER → 2017-01-30 | Outpatient (REF) | payer MEDICARE ==
[~2017-01-30] MED LIST changes: +NORC1TAB4 PO; -NORC5TAB PO
== END ==
LOC: M LABDRWAD 12:07
PROVIDERS: ATTEND Family Medicine
DX: E11.9 Type 2 diabetes mellitus without complications (principal); N39.0 Urinary tract infection, site not specified

== ENCOUNTER → 2017-02-13 | Outpatient (REF) | payer MEDICARE | LOC: M LAB REF 12:29 | PROVIDERS: ATTEND Family Medicine | DX: N39.0 Urinary tract infection, site not specified (principal) ==

== ENCOUNTER → 2017-05-01 | Outpatient (REF) | payer MEDICARE ==
[~2017-05-01] MED LIST changes: -DEXI60CA PO; +DEXI60CA2 PO; +LEVA1TAB2 PO; -LEVA500T PO; -METO-209 PO; -METO100T PO; +METO100T5 PO; +METO1TAB33 PO; -METO50TA2 PO; +METO50TA7 PO; -MUCI600T34 PO; +MUCI600T37 PO
== END ==
LOC: M LAB REF 18:57
PROVIDERS: ATTEND Physician Assistant Medical
DX: N30.01 Acute cystitis with hematuria (principal)

== ENCOUNTER 2017-05-08 08:19 | Emergency (ER) | payer MEDICARE ==
[~2017-05-08] VITALS: Ht 154.9 cm; Wt 96.1 kg
[2017-05-08] MEDS ORDERED: NS 1,000 ML IV SCH (09:09)
[2017-05-08 09:25] LABS: BASO % 0.4 % (0.0-1.0); EOS # 0.1 K/mm3 (0.0-0.50); EOS % 1.7 % (0.0-3.0); LARGE UNSTAINED CELL # 0.2 K/mm3 (0.0-0.4); LARGE UNSTAINED CELL % 1.9 % (0.0-4.0); LYMPH # 0.8 K/mm3 (1.5-4.5); LYMPH % 9.3 % (24.0-44.0); MEAN CORPUSCULAR HEMOGLOBIN 29.9 pg (27.0-33.0); MEAN CORPUSCULAR HGB CONC 33.9 g/dl (32.0-36.5); MEAN CORPUSCULAR VOLUME 88.2 fl (80.0-96.0); MONO # 0.4 K/mm3 (0.0-0.8); MONO % 5.1 % (0.0-5.0); NEUTROPHILS # 6.8 K/mm3 (1.8-7.7); NEUTROPHILS % 81.6 % (36.0-66.0); PLATELET COUNT, AUTOMATED 255 k/mm3 (150-450); RED CELL DISTRIBUTION WIDTH 13.7 % (11.5-14.5); WHITE BLOOD COUNT 8.4 K/mm3 (4.0-10.0)
[2017-05-08 09:33] LABS: RENAL EPITHELIAL CELLS 4 /HPF
[2017-05-08 09:44] LABS: INR 1.05
[2017-05-08 09:46] LABS: ALBUMIN 2.7 GM/DL (3.2-5.2); ALBUMIN/GLOBULIN RATIO 0.69 (1.00-1.93); BILIRUBIN,DIRECT 0.1 MG/DL (0.0-0.2); BILIRUBIN,TOTAL 0.3 MG/DL (0.2-1.0); CALCIUM LEVEL 8.9 MG/DL (8.8-10.2); CREATININE FOR GFR 1.34 MG/DL (0.55-1.02); GLOMERULAR FILTRATION RATE 40.2 (>32); POTASSIUM SERUM 4.2 MEQ/L (3.5-5.1); TOTAL PROTEIN 6.6 GM/DL (6.4-8.2)
[2017-05-08] MEDS ORDERED: CLOPIDOGREL 300 MG TAB (PLAVIX) PO STA (12:38)
--- NOTE | 2017-05-08 13:32 | REP ---
Chest one-view HISTORY: Weakness Comparison: 10/14/2016 The lungs are clear. The cardiac silhouette is enlarged. The pulmonary vasculature is normal in appearance. Impression: Cardiomegaly. Signed by Lauri Clark MD 05/08/2017 01:23 P
[2017-05-08 14:02] VITALS: BP 199/81
--- NOTE | 2017-05-09 13:54 | ECGEPIP ---
Stationary ECG Study [facility] - ED Test Date: 2017-05-08 Pat Name: SARAH GORE Department: Room: - Gender: F [employer] Aide: redd : 1935 Requested By: Grace Chaidez Order Number: [id number] Reading MD: Grace Chaidez Measurements Intervals [place] Rate: 66 P: 47 KS: 188 QRS: 21 QRSD: 106 T: 4 QT: 439 QTc: 460 Interpretive Statements SINUS RHYTHM MINIMAL VOLTAGE CRITERIA FOR LVH, CONSIDER NORMAL VARIANT POSSIBLE INFERIOR MYOCARDIAL INFARCTION, PROBABLY OLD DECREASED RATE 10/17/16 Electronically Signed On 05-09-2017 13:54:19 EDT by Grace Chaidez
== END 2017-05-08 14:06 | disposition short-term general hospital (02) ==
LOC: M ED 09:13
DX: I24.9 Acute ischemic heart disease, unspecified (principal); E11.9 Type 2 diabetes mellitus without complications; I10 Essential (primary) hypertension; N28.9 Disorder of kidney and ureter, unspecified; Z85.3 Personal history of malignant neoplasm of breast; I51.7 Cardiomegaly; Z79.82 Long term (current) use of aspirin; Z79.84 Long term (current) use of oral hypoglycemic drugs; Z79.899 Other long term (current) drug therapy; Z88.8 Allergy status to other drugs, medicaments and biological substances; Z88.6 Allergy status to analgesic agent; Z88.2 Allergy status to sulfonamides

== ENCOUNTER → 2017-06-07 | Outpatient (CLI) | payer MEDICARE ==
[2017-06-07 11:40] LABS: MEAN CORPUSCULAR HGB CONC 33.6 g/dl (32.0-36.5); MEAN CORPUSCULAR VOLUME 89.2 fl (80.0-96.0); RED CELL DISTRIBUTION WIDTH 14.2 % (11.5-14.5); WHITE BLOOD COUNT 7.9 K/mm3 (4.0-10.0)
[2017-06-07 12:06] LABS: FREE T4 1.13 NG/DL (0.76-1.46); PERCENT SATURATION 21.6 % (13.2-45.0)
[2017-06-07 13:14] LABS: BASOPHILS 4 % (0-4); EOSINOPHILS 3 % (0-5)
[2017-06-07 13:15] LABS: POIKILOCYTOSIS 1+
== END ==
LOC: M LAB 10:17
PROVIDERS: ATTEND Family Medicine
DX: E03.9 Hypothyroidism, unspecified (principal); D64.9 Anemia, unspecified; E11.9 Type 2 diabetes mellitus without complications

== ENCOUNTER → 2017-07-23 | Outpatient (CLI) | payer MEDICARE ==
[2017-07-23 19:07] LABS: FREE T4 1.16 NG/DL (0.76-1.46)
== END ==
LOC: M SMT 11:15
PROVIDERS: ATTEND Family Medicine
DX: E03.9 Hypothyroidism, unspecified (principal)

== ENCOUNTER → 2017-09-03 | Outpatient (REF) | payer MEDICARE | LOC: M LAB REF 17:25 | PROVIDERS: ATTEND Internal Medicine Nephrology | DX: N39.0 Urinary tract infection, site not specified (principal) ==

== ENCOUNTER → 2017-09-10 | Outpatient (CLI) | payer MEDICARE ==
[2017-09-10 14:39] LABS: FREE T4 1.27 NG/DL (0.76-1.46)
== END ==
LOC: M SMT 10:40
PROVIDERS: ATTEND Family Medicine
DX: E03.9 Hypothyroidism, unspecified (principal); E11.9 Type 2 diabetes mellitus without complications

== ENCOUNTER → 2018-05-17 | Outpatient (CLI) | payer MEDICARE ==
[2018-05-17 12:35] LABS: ANION GAP 12 MEQ/L (8-16); BLOOD UREA NITROGEN 21 MG/DL (7-18); CALCIUM LEVEL 8.9 MG/DL (8.8-10.2); CARBON DIOXIDE LEVEL 22 MEQ/L (21-32); CHLORIDE LEVEL 104 MEQ/L (98-107); CREATININE FOR GFR 1.31 MG/DL (0.55-1.30); GLOMERULAR FILTRATION RATE 41.2 (>32); GLUCOSE, FASTING 235 MG/DL (70-100); POTASSIUM SERUM 4.1 MEQ/L (3.5-5.1); SODIUM LEVEL 138 MEQ/L (136-145)
== END ==
LOC: M ADAMS 09:11
DX: I10 Essential (primary) hypertension (principal)
CPT/HCPCS: 80048

== ENCOUNTER → 2018-08-05 | Outpatient (REF) | payer MEDICARE ==
[2018-08-05 20:49] LABS: APPEARANCE, URINE HAZY (CLEAR); BACTERIA, URINE AUTO 2+ (NEGATIVE); BILIRUBIN, URINE AUTO NEGATIVE (NEGATIVE); BLOOD, URINE BLOOD 1+ (NEGATIVE); COLOR, URINE YELLOW (YELLOW); GLUCOSE, URINE (UA) AUTO NEGATIVE (NEGATIVE); KETONE, URINE AUTO NEGATIVE (NEGATIVE); LEUKOCYTE ESTERASE, URINE AUTO 3+ (NEGATIVE); MUCUS, URINE SMALL (NEGATIVE); NITRITE, URINE AUTO NEGATIVE (NEGATIVE); PROTEIN, URINE AUTO NEGATIVE (NEGATIVE); RBC, URINE AUTO 4 /HPF (0-3); SPECIFIC GRAVITY URINE AUTO 1.008 (1.002-1.035); SQUAMOUS EPITHELIAL CELL UR AU 0 /HPF (0-6); UROBILINOGEN, URINE AUTO 0.2 mg/dL (0.0-2.0); WBC, URINE AUTO TNTC /HPF (0-3)
== END ==
LOC: M LAB REF 10:24
DX: R30.0 Dysuria (principal)
CPT/HCPCS: 81001

== ENCOUNTER → 2018-09-03 | Outpatient (REF) | payer MEDICARE | LOC: M LAB REF 13:10 | DX: N39.0 Urinary tract infection, site not specified (principal) | CPT/HCPCS: 87186 ==

== ENCOUNTER → 2018-11-11 | Outpatient (CLI) | payer MEDICARE ==
[~2018-11-11] MED LIST changes: -AMLO5TAB2 PO; +AMLO5TAB6 PO; +LOSA25TA14 PO; -LOSA25TA8 PO
--- NOTE | 2018-11-11 15:05 | REP ---
BILATERAL LOWER EXTREMITY DUPLEX DOPPLER ARTERIAL ULTRASOUND: Real-time ultrasound evaluation and duplex Doppler interrogation of the bilateral lower extremity arterial systems is performed. Moderate plaquing and narrowing is seen throughout the right lower extremity arterial system with moderate to severe plaquing and narrowing in the left lower extremity arterial system. There appears to be stenosis of the proximal left superficial femoral artery. There is occlusion of the distal left posterior tibial artery. There are biphasic waveforms seen diffusely bilaterally with monophasic waveform in the distal right posterior tibial artery as well as left popliteal and proximal anterior tibial artery. PEAK SYSTOLIC VELOCITY RIGHT LEFT Common femoral artery 154.5 cm/s 196.7 cm/s Profunda 122.2 214 Proximal SFA 104.1 163.1 Superficial femoral artery mid 75 50.4 Superficial femoral artery distal 77.3 62.8 Popliteal 55.1 51.6 Proximal anterior tibial artery 49.1 48.8 Tibial peroneal trunk 84.7 90.2 Proximal posterior tibial artery 40.5 49.5 Distal posterior tibial artery 39.9 occluded Distal anterior tibial artery 63.2 65.2 IMPRESSION: Moderate to severe bilateral plaquing and narrowing left greater than right. There appears to be stenosis of the proximal left superficial femoral artery. There is occlusion of the distal left posterior tibial artery. Electronically Signed by Boston Delgado MD 11/11/2018 07:58 P
== END ==
LOC: M RAD 10:49
PROVIDERS: ATTEND Family Medicine
DX: I73.9 Peripheral vascular disease, unspecified (principal)

== ENCOUNTER → 2018-11-19 | Outpatient (REF) | payer MEDICARE ==
[2018-11-19 13:17] LABS: CHOLESTEROL RISK RATIO 2.981 (<5); FREE T3 2.4 PG/ML (2.2-4.0); FREE T4 1.45 NG/DL (0.76-1.46); THYROID STIMULATING HORMONE 1.66 uIU/ML (0.358-3.740)
== END ==
LOC: M LABDRWAD 12:08
PROVIDERS: ATTEND Family Medicine
DX: E03.9 Hypothyroidism, unspecified (principal); E11.9 Type 2 diabetes mellitus without complications

== ENCOUNTER 2019-02-14 17:55 | Emergency (ER) | payer MEDICARE ==
[~2019-02-14] VITALS: Ht 154.9 cm; Wt 95.0 kg
[~2019-02-14 17:55] MED LIST changes: -/AMLO25TA PO; -/CELE20CA PO; -ACET50TA PO; +ASPI-1 PO; -ASPI325T PO; -ASPI81CH PO; +ASPI81CH49 PO; +CELE1CAP4 PO; -MAGN1TAB25 PO; +MAGN1TAB26 PO; +MAPA500T17 PO; -NORC1TAB4 PO; +NORC1TAB7 PO; +NORV2TAB PO; +OXYC-517 PO; -OXYCO5TA PO
--- NOTE | 2019-02-14 18:37 | REP ---
CT brain without contrast: History: Head injury. Patient on blood thinners. Comparison head CT study October 14, 2016. CT findings: Preliminary digital tube coverer radiograph is unremarkable. Bone window settings demonstrate no evidence of skull fracture. No significant scalp hematoma is seen. Vascular calcification is noted in the distal carotid arteries. No intraorbital abnormality is seen. On soft tissue window settings, there is evidence of an old cerebral infarction involving the right occipital lobe. This is new when compared with the October 14, 2016 study. There is diffuse cerebral atrophy. No acute infarction is seen. No hemorrhage is noted. There is an old lacunar infarct in the right basal ganglia which is also a new finding when compared with the 2017 study. No mass lesion or midline shift is observed. Impression: Moderate vascular calcification. Diffuse atrophy. Old lacunar infarct right basal ganglia. 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 No acute intracranial abnormality. Electronically Signed by Tim Montelongo MD 02/14/2019 08:28 P
[2019-02-14] MEDS ORDERED: LOPR1TAB7 PO (18:45)
[2019-02-14] MEDS ORDERED: AMLO5TAB6 PO (18:45)
[2019-02-14] MEDS ORDERED: ASPI81TA85 PO (18:45)
[2019-02-14] MEDS ORDERED: ANAS1TAB2 PO (18:45)
[2019-02-14] MEDS ORDERED: LATANOPROST OU (18:45)
[2019-02-14] MEDS ORDERED: SODI325T9 PO (18:45)
[2019-02-14] MEDS ORDERED: NU-M1TAB PO (18:45)
[2019-02-14] MEDS ORDERED: XARELTO PO (18:45)
[2019-02-14] MEDS ORDERED: NYST1POW9 TOP (18:45)
[2019-02-14] MEDS ORDERED: LIDOCAINE 1% MDV 20ML VIAL As Ordered ONE (18:59)
[2019-02-14] MEDS ORDERED: LIDOCAINE 1% MDV 20ML VIAL SC ONE (19:00)
[2019-02-14] MEDS ORDERED: ADACEL/BOOSTRIX VACCINE (DIPHTH/PERTUSS/ACELL/TETANUS)0.5ML SYR (90715) IM ONE (19:15)
[2019-02-14] MEDS ORDERED: LOSARTAN 50 MG TAB PO ONE (19:30)
[2019-02-14 19:40] VITALS: BP 157/68
[2019-02-14 19:51] VITALS: BP 157/68
--- NOTE | 2019-02-14 20:09 | REP ---
CT study of the cervical spine without contrast: History: Trauma. Technique: Helical scanning is acquired and overlapping 2 mm high resolution axial images were generated and reviewed at bone and soft tissue window settings. Coronal and sagittal multiplanar re-formations images are generated. CT findings: There is no evidence of cervical spine element fracture. No skull base fracture is seen. Cervical vertebral body heights are preserved. Alignment is normal. Facet joints are normally aligned bilaterally at each cervical level on multiplanar re-formations images. There is no evidence of intraspinal or paraspinal hematoma. No extra vertebral abnormality is seen. There is degenerative spondylosis change diffusely in the cervical spine. Discogenic spurring is seen posteriorly at C3-4, C4-5, C5-6, and C6-7. Facet osteoarthropathy is seen in the mid cervical spine. Impression: Moderate degenerative spondylosis changes, otherwise negative CT study of the cervical spine without contrast. No fracture seen. Electronically Signed by Tim Montelongo MD 02/14/2019 08:33 P
== END 2019-02-14 20:09 | disposition home or self-care (01) ==
LOC: M ED 17:55
DX: S09.90XA Unspecified injury of head, initial encounter (principal); W01.190A Fall on same level from slipping, tripping and stumbling with subsequent striking against furniture, initial encounter; Y92.009 Unspecified place in unspecified non-institutional (private) residence as the place of occurrence of the external cause; C50.919 Malignant neoplasm of unspecified site of unspecified female breast; E11.9 Type 2 diabetes mellitus without complications; I10 Essential (primary) hypertension; I25.10 Atherosclerotic heart disease of native coronary artery without angina pectoris; K21.9 Gastro-esophageal reflux disease without esophagitis; Z79.01 Long term (current) use of anticoagulants; Z79.82 Long term (current) use of aspirin; Z79.899 Other long term (current) drug therapy; Z88.1 Allergy status to other antibiotic agents; Z88.2 Allergy status to sulfonamides; Z88.6 Allergy status to analgesic agent

== ENCOUNTER → 2019-05-26 | Outpatient (CLI) | payer MEDICARE ==
[~2019-05-26] MED LIST changes: +ANAS1TAB2 PO; +ASPI81TA85 PO; +LATANOPROST OU; +LOPR1TAB7 PO; +NU-M1TAB PO; +NYST1POW9 TOP; +XARELTO PO
[2019-05-26 14:15] LABS: FREE T4 1.45 NG/DL (0.76-1.46); THYROID STIMULATING HORMONE 0.696 uIU/ML (0.358-3.740)
[2019-05-26 14:16] LABS: TOTAL 25(OH) VITAMIN D 35.6 NG/ML (30.0-100.0)
== END ==
LOC: M SMT 11:23
PROVIDERS: ATTEND Family Medicine
DX: N18.9 Chronic kidney disease, unspecified (principal); E03.9 Hypothyroidism, unspecified; R42 Dizziness and giddiness

== ENCOUNTER 2019-08-24 10:12 | Emergency (ER) | payer MEDICARE ==
[~2019-08-24] VITALS: Ht 154.9 cm; Wt 93.6 kg
[~2019-08-24 10:12] MED LIST changes: -GLIM2TAB PO; +GLIM2TAB2 PO; -GLIM4TAB PO; +GLIM4TAB3 PO
[2019-08-24] MEDS ORDERED: MAGN64TASA PO (10:51)
[2019-08-24] MEDS ORDERED: RANI1TAB38 PO (10:51)
[2019-08-24 11:13] LABS: BASO # 0.1 10^3/uL (0.0-0.2); BASO % 0.9 % (0.0-1.0); EOS # 0.2 10^3/uL (0.0-0.5); EOS % 1.4 % (0.0-3.0); HEMATOCRIT 37.5 % (36.0-47.0); HEMOGLOBIN 12.4 g/dl (12.0-15.5); LYMPH # 2.3 10^3/uL (1.5-5.0); LYMPH % 22.1 % (24.0-44.0); MEAN CORPUSCULAR HEMOGLOBIN 29.7 pg (27.0-33.0); MEAN CORPUSCULAR HGB CONC 33.1 g/dl (32.0-36.5); MEAN CORPUSCULAR VOLUME 89.7 fl (80.0-96.0); MONO # 0.8 10^3/uL (0.0-0.8); MONO % 7.9 % (0.0-5.0); NEUTROPHILS # 7.1 10^3/uL (1.5-8.5); NEUTROPHILS % 67.3 % (36.0-66.0); PLATELET COUNT, AUTOMATED 325 10^3/uL (150-450); RED BLOOD COUNT 4.18 10^6/uL (4.00-5.40); WHITE BLOOD COUNT 10.6 10^3/uL (4.0-10.0)
[2019-08-24 11:28] LABS: ALBUMIN 3.1 GM/DL (3.2-5.2); BILIRUBIN,TOTAL 0.5 MG/DL (0.2-1.0); CREATININE FOR GFR 1.2 MG/DL (0.55-1.30); GLOMERULAR FILTRATION RATE 45.5 (>32); POTASSIUM SERUM 3.5 MEQ/L (3.5-5.1); TOTAL PROTEIN 6.2 GM/DL (6.4-8.2)
[2019-08-24 11:45] LABS: MAGNESIUM LEVEL 1.3 MG/DL (1.8-2.4)
[2019-08-24] MEDS ORDERED: MAG SULF 1GM/100ML (MAG RUN) 1 GM in IV 1 EA IV ONE (12:00)
--- NOTE | 2019-08-24 12:17 | REP ---
Portable chest x-ray: Single view. History: Weakness. Comparison study: May 08, 2017. Findings: Median sternotomy wires are seen along with monitoring electrodes. Cardiomegaly is observed. The aorta is tortuous and calcific. There is linear fibrosis in the left perihilar region unchanged. Pulmonary vasculature is not increased. No infiltrate is seen. No pleural effusion noted. Impression: Cardiomegaly prior sternotomy. Linear fibrosis left perihilar region. Otherwise no acute disease. Electronically Signed by Tim Montelongo MD 08/24/2019 12:09 P
--- NOTE | 2019-08-24 12:18 | ECGEPIP ---
[facility] - ED Test Date: 2019-08-24 Pat Name: SARAH GORE Department: Room: - Gender: Female Helminthologist: Zelalem MORALES : [id number] Requested By: aTng Ovalle Order Number: [id number] Reading MD: Grace Chaidez Measurements Intervals [place] Rate: 59 P: 75 HI: 213 QRS: 32 QRSD: 147 T: -4 QT: 495 QTc: 491 Interpretive Statements SINUS BRADYCARDIA WITH FIRST DEGREE AV BLOCK RIGHT BUNDLE BRANCH BLOCK NEW 05/08/17 CLINICAL CORREALTION MINIMAL VOLTAGE CRITERIA FOR LVH, CONSIDER NORMAL VARIANT Electronically Signed on 08-24-2019 12:18:13 EST by Grace Chaidez
[2019-08-24] MEDS ORDERED: LOSA50TA88 PO (12:43)
[2019-08-24] MEDS ORDERED: XARE2.5T PO (12:43)
[2019-08-24] MEDS ORDERED: AMLO25TA PO (12:43)
[2019-08-24] MEDS ORDERED: POTA4.25 PO (12:43)
[2019-08-24] MEDS ORDERED: METO50TA7 PO (12:43)
[2019-08-24] MEDS ORDERED: SYNT137T7 PO (12:43)
[2019-08-24] MEDS ORDERED: LATA0.0015 OU (12:43)
[2019-08-24] MEDS ORDERED: ATOR1TAB21 PO (12:43)
[2019-08-24] MEDS ORDERED: GLIM4TAB3 PO (12:43)
[2019-08-24 12:44] LABS: CK-MB VALUE MASS < 1.0 NG/ML (<3.6); CPK CREATINE PHOSPHOKINASE 36 U/L (26-192); MB/CK RELATIVE INDEX 2.78 (< OR =4); TROPONIN I 0.05 NG/ML (< 0.10)
[2019-08-24 14:33] VITALS: BP 150/78
== END 2019-08-24 14:59 | disposition home or self-care (01) ==
LOC: M ED 10:12 → CANBEDREQ 13:51 → M ED 14:59
DX: N18.3 Chronic kidney disease, stage 3 (moderate) (principal); E83.42 Hypomagnesemia; I12.9 Hypertensive chronic kidney disease with stage 1 through stage 4 chronic kidney disease, or unspecified chronic kidney disease; I73.9 Peripheral vascular disease, unspecified; I45.10 Unspecified right bundle-branch block; Z90.5 Acquired absence of kidney; Z79.899 Other long term (current) drug therapy; Z79.82 Long term (current) use of aspirin
CPT/HCPCS: 71045; 80053; 82550; 82553; 83735; 84484; 85025; 93005; 96365; 99284; J3475

== ENCOUNTER 2019-08-29 23:51 | Observation (INO) | payer MEDICARE ==
[~2019-08-29] VITALS: Ht 154.9 cm; Wt 93.6 kg
[~2019-08-29 23:51] MED LIST changes: +AMLO25TA PO; +ATOR1TAB21 PO; +LATA0.0015 OU; +LOSA50TA88 PO; +MAGN64TASA PO; +RANI1TAB38 PO; +SYNT137T7 PO; +XARE2.5T PO
[2019-08-30] MEDS ORDERED: ONDANSETRON 4MG/2ML VIAL (J2405) IV ONE (00:30)
[2019-08-30 00:39] LABS: BASO # 0.1 10^3/uL (0.0-0.2); BASO % 0.6 % (0.0-1.0); EOS # 0.2 10^3/uL (0.0-0.5); HEMATOCRIT 39.5 % (36.0-47.0); HEMOGLOBIN 13.1 g/dl (12.0-15.5); LYMPH # 3.2 10^3/uL (1.5-5.0); MEAN CORPUSCULAR HEMOGLOBIN 29.8 pg (27.0-33.0); MEAN CORPUSCULAR HGB CONC 33.2 g/dl (32.0-36.5); MONO # 1.4 10^3/uL (0.0-0.8); MONO % 6.2 % (0.0-5.0); NEUTROPHILS # 17.6 10^3/uL (1.5-8.5); NEUTROPHILS % 77.7 % (36.0-66.0); PLATELET COUNT, AUTOMATED 403 10^3/uL (150-450); RED BLOOD COUNT 4.39 10^6/uL (4.00-5.40); WHITE BLOOD COUNT 22.6 10^3/uL (4.0-10.0)
[2019-08-30 00:47] LABS: VENOUS BASE EXCESS -0.6 (-2.0-2.0); VENOUS HCO3 24.8 MEQ/L (23.0-27.0); VENOUS O2 SATURATION 99.4 % (60.0-80.0); VENOUS PARTIAL PRESSURE CO2 43.4 mmHg (38.0-50.0); VENOUS PARTIAL PRESSURE O2 249.1 mmHg (30.0-50.0); VENOUS PH 7.374 UNITS (7.330-7.430); VENOUS TOTAL CO2 26.1 MEQ/L (24.0-28.0)
--- NOTE | 2019-08-30 00:55 | REPVR ---
PROCEDURE INFORMATION: Exam: CT Head Without Contrast Exam date and time: 08/30/2019 12:47 AM Age: 84 years old Clinical history: Altered mental status/memory loss; Additional info: AMS TECHNIQUE: Imaging protocol: Computed tomography of the head without contrast. Radiation optimization: All CT scans at this facility use at least one of these dose optimization techniques: automated exposure control; mA and/or kV adjustment per patient size (includes targeted exams where dose is matched to clinical indication); or iterative reconstruction. Other technique: STROKE PROTOCOL was implemented. COMPARISON: CT Head without contrast 02/14/2019 5:56 PM FINDINGS: Brain: There is extensive subarachnoid hemorrhage. Large intra-axial hemorrhage in the right frontal lobe measuring 5.2 x 2.8 cm. Generalized cerebral edema. Midline shift: Mild leftward midline shift of the right frontal lobe measuring 7 mm. No downward herniation. Ventricles: Ventricular size is increased compared to the prior exam and there is moderate intraventricular hemorrhage. Bones/joints: Unremarkable. No acute fracture. Sinuses: Visualized sinuses are unremarkable. No fluid levels. Mastoid air cells: Visualized mastoid air cells are well aerated. Soft tissues: Unremarkable. IMPRESSION: 1. Extensive subarachnoid hemorrhage with a large hemorrhage in the right frontal lobe. 2. Generalized cerebral edema. 3. Hydrocephalus with intraventricular hemorrhage. ASSESSMENT: ASPECTS ([place]oby Stroke Program Early CT Score) is 10. Electronically signed by: Gus Shultz On 08/30/2019 00:55:13 AM
[2019-08-30] MEDS ORDERED: PATIENT COMMENTS (01:01)
[2019-08-30] MEDS ORDERED: METO75TA PO (01:01)
[2019-08-30] MEDS ORDERED: MORPHINE 2 MG/ML 1ML VIAL (J2270) As Ordered ONE (01:20)
[2019-08-30 01:25] LABS: ALBUMIN 3.2 GM/DL (3.2-5.2); ALT/SGPT 17 U/L (12-78); BILIRUBIN,DIRECT 0.2 MG/DL (0.0-0.2); BILIRUBIN,TOTAL 0.8 MG/DL (0.2-1.0); BLOOD UREA NITROGEN 21 MG/DL (7-18); CALCIUM LEVEL 9.9 MG/DL (8.8-10.2); CARBON DIOXIDE LEVEL 25 MEQ/L (21-32); CHLORIDE LEVEL 94 MEQ/L (98-107); CREATININE FOR GFR 1.33 MG/DL (0.55-1.30); ETHYL ALCOHOL (ETHANOL) < 0.003 % (0.000-0.010); FREE THYROXINE INDEX 5.3 % (1.3-4.8); GLOMERULAR FILTRATION RATE 40.4 (>32); GLUCOSE, FASTING 292 MG/DL (70-100); POTASSIUM SERUM 2.9 MEQ/L (3.5-5.1); SODIUM LEVEL 133 MEQ/L (136-145); T UPTAKE 42 % (30-39); THYROXINE (T4) 12.5 UG/DL (4.5-12.0); TOTAL PROTEIN 6.3 GM/DL (6.4-8.2)
[2019-08-30] MEDS: MORPHINE 2 MG/ML 1ML VIAL (J2270) IV PRN ×2 (01:29→03:18)
[2019-08-30] MEDS ORDERED: ATROPINE SULFATE 1% OP SOLN 2 ML BTL SL PRN (01:30)
[2019-08-30] MEDS ORDERED: SCOPOLAMINE 1MG TRANSDERMAL PATCH TOP PRN (01:30)
[2019-08-30] MEDS ORDERED: ONDANSETRON 4MG/2ML VIAL (J2405) IV PRN (01:30)
[2019-08-30] MEDS ORDERED: LORazepam 2 MG/ML VIAL (J2060) IV PRN (01:30)
[2019-08-30] MEDS ORDERED: HYOSCYAMINE SULFATE 0.125 MG SUBL TABLET PO PRN (01:30)
--- NOTE | 2019-08-30 01:31 | HPEPDOC ---
General Date of Admission 08/30/19 Date of Service: Aug 30, 2019 Chief Complaint The patient is a 84-year-old female admitted with a reason for visit of S/S Possible Stroke. Source: Family Timing/Duration: 1-3 hours Severity: Severe Associated Symptoms: Unobtainable History of Present Illness Patient is 84 years old female with past medical history of coronary artery diseases, [place], diabetes, nephrolithiasis, recently diagnosed atrial fibrillation on Eliquis was brought to the hospital unresponsive. According to family members she became unresponsive around 9 PM on 08/29/19. In emergency room head CT sh owed extensive subarachnoid hemorrhage, large intra-axial hemorrhage in the right frontal lobe measuring 5.2-2.8 cm with mild lift or midline shift of the right frontal lobe measuring 7 mm. According to family wishes patient was transferred to [facility] status Home Medications Scheduled Amlodipine Besylate (Amlodipine Besylate) 2.5 Mg Tablet, 2.5 MG PO DAILY, (Reported) Anastrozole (Anastrozole) 1 Mg Tablet, 1 MG PO DAILY, (Reported) Aspirin (Aspir 81) 81 Mg Tablet.dr, 81 MG PO DAILY, (Reported) Atorvastatin Calcium (Atorvastatin Calcium) 20 Mg Tablet, 20 MG PO QPM, (Reported) SUPPER Glimepiride (Glimepiride) 4 Mg Tablet, 4 MG PO BID, (Reported) Latanoprost/Pf (Latanoprost 0.005% Eye Drop) 7.5 Ml Drops, 1 DROP OU QHS, (Reported) Levothyroxine Sodium (Synthroid) 137 Mcg Tablet, 137 MCG PO DAILY, (Reported) Losartan Potassium (Losartan Potassium) 50 Mg Tablet, 50 MG PO BID, (Reported) Magnesium Chloride (Mag64) 64 Mg Tablet.dr, 64 MG PO BID, (Reported) Metoprolol Tartrate (Metoprolol Tartrate) 75 Mg Tablet, 75 MG PO BID, (Reported) Multivitamins (Thera M Plus Tablet) 1 Tab Tab, 1 TAB PO DAILY, (Reported) Potassium Citrate (Potassium Citrate ER) 15 Meq Tablet.er, 15 MEQ PO BID, (Reported) Ranitidine Hcl (Ranitidine HCl) 150 Mg Tablet, 1 TAB PO DAILY, (Reported) Rivaroxaban (Xarelto) 2.5 Mg Tablet, 2.5 MG PO BID, (Reported) Scheduled PRN Sodium Bicarbonate (Sodium Bicarbonate) 325 Mg Tablet, 325 TAB PO BID PRN for INDIGESTION, (Reported) Miscellaneous Medications [Patient Comments] , (Reported) INFORMATION ABOUT MEDICATIONS PROVIDED BY FAMILY MEMBERS Allergies Coded Allergies: Cephalosporins (Verified Allergy, Unknown, 08/30/19) Quinolones (Verified Allergy, Unknown, rash, 08/30/19) Sulfa (Sulfonamide Antibiotics) (Verified Allergy, Unknown, 08/30/19) mivacurium (Verified Allergy, Unknown, 08/30/19) succinylcholine (Verified Allergy, Unknown, 08/30/19) Paralyzed acetaminophen (Verified Adverse Reaction, Unknown, 08/30/19) heart racing oxycodone (Verified Adverse Reaction, Unknown, 08/30/19) heart racing Past Medical History Medical History coronary artery diseases, [place], diabetes, nephrolithiasis, recently diagnosed atrial fibrillation on Eliquis Surgical History Left-sided nephrectomy Family History I reviewed family history and found not pertinent Social History * Smoker: Denies Alcohol: Denies Drugs: denies A-FIB/CHADSVASC A-FIB History Current/History of A-Fib/PAF?: Yes Current PO Anticoag Therapy: Yes Review of Systems Other systems Unable to obtain due to unresponsiveness Physical Examination General Exam: Positive: Other (unresponsive) Eye Exam: Positive: Other Eye Symptoms (not reactive to light); Negative: PERRLA ENT Exam: Positive: Mucous membr. moist/pink Neck Exam: Positive: Supple; Negative: JVD Chest Exam: Positive: Clear to auscultation Heart Exam: Positive: Tachycardic, Irregular Rhythm Telemetry: Positive: Atrial fibrillation Abdomen Exam: Positive: BS Hypoactive Extremity Exam: Negative: Clubbing Skin Exam: Positive: Nl turgor and temperature Neuro Exam: Positive: Other (unresponsive) Psych Exam: Positive: Other (patient is unresponsive) Vital Signs Vital Signs Date Time Temp Pulse Resp B/P (MAP) Pulse Ox O2 Delivery O2 Flow Rate FiO2 08/30/19 01:18 85 24 207/84 (125) 99 Room Air 08/29/19 23:56 98.8 Laboratory Data Labs 24H Laboratory Tests 2 08/30/19 00:30: Immature Granulocyte % (Auto) 0.5, Neutrophils (%) (Auto) 77.7H, Lymphocytes (%) (Auto) 14.0L, Monocytes (%) (Auto) 6.2H, Eosinophils (%) (Auto) 1.0, Basophils (%) (Auto) 0.6, Neutrophils # (Auto) 17.6H, Lymphocytes # (Auto) 3.2, Monocytes # (Auto) 1.4H, Eosinophils # (Auto) 0.2, Basophils # (Auto) 0.1, Nucleated Red Blood Cells % (auto) 0.0, Blood Gas Bicarbonate Standard 24.0, Venous Blood pH 7.374, Venous Blood Partial Pressure CO2 43.4, Venous Blood Partial Pressure O2 249.1H, Venous Blood Total Carbon Dioxide 26.1, Venous Blood HCO3 24.8, Venous Blood Oxygen Saturation 99.4H, Venous Blood Base Excess -0.6, Ammonia 26 CBC/BMP Laboratory Tests 08/30/19 00:30 Assessment/Plan Patient is 84 years old female with past medical history of coronary artery diseases, [place], diabetes, nephrolithiasis, recently diagnosed atrial fibrillation on Eliquis was brought to the hospital unresponsive. According to family members she became unresponsive around 9 PM on 08/29/19. In emergency room head CT showed extensive subarachnoid hemorrhage, large intra-axial hemorrhage in the right frontal lobe measuring 5.2-2.8 cm with mild lift or midline shift of the right frontal lobe measuring 7 mm. According to family wishes patient was transferred to [facility] status Problems (1) Nontraumatic intracerebral hemorrhage Status: Acute Problem Text: Due to poor prognosis after meeting with family and according to family wishes patient was transferred to [facility] consult [facility] protocol Plan / VTE VTE Prophylaxis Ordered?: ELLEN Tello DO Aug 30, 2019 01:31
[2019-08-30 01:50] VITALS: BP 231/116
[2019-08-30] MEDS: MORPHINE 10MG/0.5ML ORAL CONCENTRATE SOLUTION U/D SL PRN ×2 (02:55→03:35)
--- NOTE | 2019-08-30 03:57 | DS.PDOC ---
Discharge Summary General Date of Admission Aug 29, 2019 at 23:52 Date of Discharge 08/30/19 Discharge Summary PROCEDURES PERFORMED DURING STAY: [None]. ADMITTING DIAGNOSES: Nontraumatic intracerebral hemorrhage DISCHARGE DIAGNOSES: Nontraumatic intracerebral hemorrhage COMPLICATIONS/CHIEF COMPLAINT: Nontraumatic Intracerebral Hemorrhage. HISTORY OF PRESENT ILLNESS: Patient is 84 years old female with past medical history of coronary artery diseases, [place], diabetes, nephrolithiasis, recently diagnosed atrial fibrillation on Eliquis was brought to the hospital unresponsive. According to family members she became unresponsive around 9 PM on 08/29/19. In emergency room head CT showed extensive subarachnoid hemorrhage, large intra-axial hemorrhage in the right frontal lobe measuring 5.2-2.8 cm with mild lift or midline shift of the right frontal lobe measuring 7 mm. According to family wishes patient was transferred to [facility] status HOSPITAL COURSE:Pt on 08/30/19 at 3:45 DISCHARGE MEDICATIONS: Please see below. ALLERGIES: Please see below. PHYSICAL EXAMINATION ON DISCHARGE: VITAL SIGNS: Please see below. GENERAL: HEENT: NECK: CARDIOVASCULAR EXAMINATION: RESPIRATORY EXAMINATION: ABDOMINAL EXAMINATION: EXTREMITIES: SKIN: NEUROLOGICAL EXAMINATION: PSYCHIATRIC EXAMINATION: LABORATORY DATA: Please see below. IMAGING: PROGNOSIS: ACTIVITY: [As tolerated]. DIET: DISCHARGE PLAN: DISPOSITION: . DISCHARGE INSTRUCTIONS: 1. . ITEMS TO FOLLOWUP ON ON OUTPATIENT: 1. . DISCHARGE CONDITION: [Stable]. TIME SPENT ON DISCHARGE: Greater than minutes. Vital Signs/I&Os Vital Signs Date Time Temp Pulse Resp B/P (MAP) Pulse Ox O2 Delivery O2 Flow Rate FiO2 08/30/19 01:50 99.0 86 22 231/116 (154) 92 Room Air Laboratory Data Labs 24H Laboratory Tests 2 08/30/19 00:30: Immature Granulocyte % (Auto) 0.5, Neutrophils (%) (Auto) 77.7H, Lymphocytes (%) (Auto) 14.0L, Monocytes (%) (Auto) 6.2H, Eosinophils (%) (Auto) 1.0, Basophils (%) (Auto) 0.6, Neutrophils # (Auto) 17.6H, Lymphocytes # (Auto) 3.2, Monocytes # (Auto) 1.4H, Eosinophils # (Auto) 0.2, Basophils # (Auto) 0.1, Nucleated Red Blood Cells % (auto) 0.0, Blood Gas Bicarbonate Standard 24.0, Venous Blood pH 7.374, Venous Blood Partial Pressure CO2 43.4, Venous Blood Partial Pressure O2 249.1H, Venous Blood Total Carbon Dioxide 26.1, Venous Blood HCO3 24.8, Venous Blood Oxygen Saturation 99.4H, Venous Blood Base Excess -0.6, Anion Gap 14, Glomerular Filtration Rate 40.4, Lactic Acid Level 3.0*H, Calcium Level 9.9, Total Bilirubin 0.8, Direct Bilirubin 0.2, Aspartate Amino Transf (AST/SGOT) 10, Alanine Aminotransferase (ALT/SGPT) 17, Alkaline Phosphatase 109, Ammonia 26, Total Protein 6.3L, Albumin 3.2, Albumin/Globulin Ratio 1.03, Thyroid Stimulating Hormone (TSH) 3.390, Free Thyroxine Index 5.3H, Thyroxine (T4) 12.5H , Triiodothyronine (T3) Uptake 42H, Ethyl Alcohol Level < 0.003 CBC/BMP Laboratory Tests 08/30/19 00:30 Discharge Medications Scheduled Amlodipine Besylate (Amlodipine Besylate) 2.5 Mg Tablet, 2.5 MG PO DAILY, (Reported) Anastrozole (Anastrozole) 1 Mg Tablet, 1 MG PO DAILY, (Reported) Aspirin (Aspir 81) 81 Mg Tablet.dr, 81 MG PO DAILY, (Reported) Atorvastatin Calcium (Atorvastatin Calcium) 20 Mg Tablet, 20 MG PO QPM, (Reported) SUPPER Glimepiride (Glimepiride) 4 Mg Tablet, 4 MG PO BID, (Reported) Latanoprost/Pf (Latanoprost 0.005% Eye Drop) 7.5 Ml Drops, 1 DROP OU QHS, (Reported) Levothyroxine Sodium (Synthroid) 137 Mcg Tablet, 137 MCG PO DAILY, (Reported) Losartan Potassium (Losartan Potassium) 50 Mg Tablet, 50 MG PO BID, (Reported) Magnesium Chloride (Mag64) 64 Mg Tablet.dr, 64 MG PO BID, (Reported) Metoprolol Tartrate (Metoprolol Tartrate) 75 Mg Tablet, 75 MG PO BID, (Reported) Multivitamins (Thera M Plus Tablet) 1 Tab Tab, 1 TAB PO DAILY, (Reported) Potassium Citrate (Potassium Citrate ER) 15 Meq Tablet.er, 15 MEQ PO BID, (Reported) Ranitidine Hcl (Ranitidine HCl) 150 Mg Tablet, 1 TAB PO DAILY, (Reported) Rivaroxaban (Xarelto) 2.5 Mg Tablet, 2.5 MG PO BID, (Reported) Scheduled PRN Sodium Bicarbonate (Sodium Bicarbonate) 325 Mg Tablet, 325 TAB PO BID PRN for INDIGESTION, (Reported) Miscellaneous Medications [Patient Comments] , (Reported) INFORMATION ABOUT MEDICATIONS PROVIDED BY FAMILY MEMBERS Allergies Coded Allergies: Cephalosporins (Verified Allergy, Unknown, 08/30/19) Quinolones (Verified Allergy, Unknown, rash, 08/30/19) Sulfa (Sulfonamide Antibiotics) (Verified Allergy, Unknown, 08/30/19) mivacurium (Verified Allergy, Unknown, 08/30/19) succinylcholine (Verified Allergy, Unknown, 08/30/19) Paralyzed acetaminophen (Verified Adverse Reaction, Unknown, 08/30/19) heart racing oxycodone (Verified Adverse Reaction, Unknown, 08/30/19) heart racing ELLEN DOUGHERTY DO Aug 30, 2019 03:57
== END 2019-08-30 03:37 | disposition expired ==
LOC: M ED 23:51 → M ED INP 23:52 → M MSPAV 08-30 02:00
PROVIDERS: ADMIT Internal Medicine; ATTEND Internal Medicine
DX: I60.9 Nontraumatic subarachnoid hemorrhage, unspecified (principal); I25.10 Atherosclerotic heart disease of native coronary artery without angina pectoris; I25.2 Old myocardial infarction; I48.91 Unspecified atrial fibrillation; Z79.01 Long term (current) use of anticoagulants; Z79.82 Long term (current) use of aspirin; Z79.899 Other long term (current) drug therapy; Z88.1 Allergy status to other antibiotic agents; Z88.2 Allergy status to sulfonamides; Z88.8 Allergy status to other drugs, medicaments and biological substances
CPT/HCPCS: 36415; 70450; 80048; 80076; 82140; 82803; 83605; 84436; 84443; 84479; 85025; 96374; 96375; 96376; 99291; G0378; G0480; J2060; J2270; J2405